=== PATIENT | male | born 1945 | race Caucasian/White ===

== ENCOUNTER 2017-11-26 18:40 | Inpatient (IN) | payer OTHER ==
[~2017-11-26] VITALS: Ht 160 cm; Wt 66.7 kg
--- NOTE | 2017-11-26 19:20 | NUR ---
RECEIVED REPORT FROM RUDDY WADE FOR WARNER. PT RESTING IN BED WITH NO S/S OF DISTRESS OR DISCOMFORT NOTED.
[2017-11-26] MEDS ORDERED: ONDANSETRON HCL/PF 4 MG/2 ML VIAL ONE (19:30)
[2017-11-26] MEDS ORDERED: MORPHINE SULFATE INJ 4 MG/ML DISP.SYRIN ONE (19:30)
[2017-11-26] MEDS ORDERED: IV NS 0.9% 500 ML BAG IV ONE (19:30)
[2017-11-26] MEDS ORDERED: MORPHINE SULFATE INJ 2 MG/ML DISP.SYRIN IV ONE (19:30)
[2017-11-26] MEDS ORDERED: ONDANSETRON HCL/PF 4 MG/2 ML VIAL IVP ONE (19:30)
--- NOTE | 2017-11-26 19:30 | NUR ---
PT BB SELF C/C ABD PAIN 02/03. +N, -V/D. LBM "FEW DAYS AGO". PT UNABLE TO URINATE OF NOW. PT IS AAOX4. VSS. SKIN WNL. RESP EVEN AND UNLABORED. NO S/S OF ACUTE DISTRESS NOTED. PT PLACED ON MONITOR AND POX. AWAITING MD FOR EVAL.
--- NOTE | 2017-11-26 20:10 | NUR ---
PT TO CT
--- NOTE | 2017-11-26 20:16 | NUR ---
PT BACK FROM CT
[2017-11-26 21:02] LABS: BASOPHILS % (AUTO) 0.2 % (0.0-2.0); EOSINOPHILS % (AUTO) 0.1 % (0.0-6.0); HEMATOCRIT 33 % (39-51); HEMOGLOBIN 10.6 g/dL (13.5-17.5); LYMPHOCYTES # (AUTO) 0.3 /CMM (0.8-4.8); LYMPHOCYTES % (AUTO) 4.5 % (20.0-44.0); MEAN CORPUSCULAR HGB CONC 32 g/dl (31.0-36.0); MEAN CORPUSCULAR VOLUME 78 fL (80-96); MONOCYTES # (AUTO) 0.3 /CMM (0.1-1.30); MONOCYTES % (AUTO) 3.7 % (2.0-12.0); NEUTROPHILS # (AUTO) 7.1 /CMM (1.8-8.9); NEUTROPHILS % (AUTO) 91.5 % (43.0-81.0); PLATELET COUNT (AUTO) 303 /CMM (150-450); RDW COEFFICIENT OF VARIATION 18.2 (11.5-15.0); RED BLOOD CELL COUNT(AUTO) 4.24 MIL/uL (4.5-6.0); WHITE BLOOD COUNT (AUTO) 7.8 K/uL (4.3-11.0)
[2017-11-26 21:17] LABS: ALANINE AMINOTRANSFERASE 11 U/L (12-78); ALBUMIN 3.5 g/dL (3.4-5.0); ALKALINE PHOSPHATASE 57 U/L (46-116); ASPARTATE AMINOTRANSFERASE 12 U/L (15-37); BILIRUBIN,DIRECT 0.1 mg/dL (0.0-0.2); BILIRUBIN,TOTAL 0.5 mg/dL (0.2-1.0); CALCIUM, SERUM 8.4 mg/dL (8.5-10.1); CARBON DIOXIDE 27 mmol/L (21-32); CHLORIDE 107 mmol/L (98-107); CREATININE 1.2 mg/dL (0.6-1.3); GLUCOSE 113 mg/dL (74-106); LIPASE 157 U/L (73-393); POTASSIUM 3.9 mmol/L (3.5-5.1); SODIUM SERUM 142 mmol/L (136-145); TOTAL PROTEIN, SERUM 6.8 g/dL (6.4-8.2); UREA NITROGEN, BLOOD 19 mg/dL (7-18)
[2017-11-26 21:25] LABS: INR 0.94 (0.87-1.13)
[2017-11-26] MEDS ORDERED: PIPERACILLIN /TAZOBACTAM 3.375 G in IV D5W 50 ML IV ONE (22:00)
--- NOTE | 2017-11-26 22:08 | NUR ---
REPORT GIVEN TO SHELLEY HUERTA FOR WARNER.
[2017-11-26] MEDS ORDERED: PIPERACILLIN /TAZOBACTAM 3.375 G VIAL IV ONE (22:10)
--- NOTE | 2017-11-26 22:50 | NUR ---
RN NOTES RECEIVED PT FROM ER WITH DX. OF ABDOMINAL PAIN, PT REFUSED TO BODY CHECK HIS LOWER EXTREMITIES, NON-COMPLIANT, ADMISSION INSTRUCTION WAS GIVEN , CALL LIGHT WITHIN REACH, [id number], CONTINUE TO MONITOR
[2017-11-26] MEDS ORDERED: MAGNESIUM HYDROXIDE 30 ML UDC PO PRN (23:00)
[2017-11-26] MEDS ORDERED: ACETAMINOPHEN 325 MG TABLET PO PRN (23:00)
[2017-11-26] MEDS ORDERED: ONDANSETRON HCL/PF 4 MG/2 ML VIAL IVP PRN (23:00)
[2017-11-26] MEDS ORDERED: Z GUARD REMEDY 2 OZ OINT TP PRN (23:00)
[2017-11-26] MEDS ORDERED: MAG HYDROX/AL HYDROX/SIMETH 30 ML UDC PO PRN (23:00)
[2017-11-26] MEDS: PANTOPRAZOLE 40 MG VIAL IV SCH (23:08)
--- NOTE | 2017-11-26 23:34 | NUR ---
AT 2320 PATIENT REFUSED TO DO ULTRASOUND OF HIS GALLBLADDER, HE SAID;" HE DOES NOT WANT TO BE TOUCHED BY THE TRANSDUCER ". THE NURSE IN CHARGE IS AWARE OF THE SITUATION.
[2017-11-26] MEDS: MORPHINE SULFATE INJ 2 MG/ML DISP.SYRIN IV PRN (23:46)
--- NOTE | 2017-11-26 23:50 | NUR ---
RN NOTES, COMPLAINED OF ABDOMINAL PAIN- MORPHINE 4 MG IV GIVEN ORDERED, V/S STABLE
[2017-11-26] MEDS: IV NS 0.9% 1,000 ML IV PRN (23:56)
[2017-11-27] VITALS (8 sets, daily range): BP systolic 79–136; BP diastolic 46–68
--- NOTE | 2017-11-27 04:10 | NUR ---
RN NOTES COMPLAINED OF ABDOMINAL PAIN- MORPHINE 4 MG IV GIVEN ORDERED, V/S STABLE
[2017-11-27] MEDS: MORPHINE SULFATE INJ 2 MG/ML DISP.SYRIN IV PRN ×2 (04:15→09:20)
[2017-11-27] MEDS ORDERED: PIPERACILLIN /TAZOBACTAM 3.375 G VIAL IV ONE (04:58)
[2017-11-27] MEDS ORDERED: PIPERACILLIN /TAZOBACTAM 3.375 G in IV NS 0.9% 50 ML IV SCH (05:00)
--- NOTE | 2017-11-27 05:00 | NUR ---
RN NOTES NEW IV LINE INSERTED ON THE RIGHT FOREARM GAUGE 22
--- NOTE | 2017-11-27 06:44 | NUR ---
RN NOTES AWAKE, MORNING CARE RENDERED , STILL COMPLAINING OF ABDOMINAL PAIN BUT STILL HE'S ASKING FOR FOOD AND WATER, EXPLAINED THAT HE CANNOT EAT OR DRINK UNTIL THE DOCTOR SEE HIM , BUT PT. ASKING THE SAME QUESTION. CALL LIGHT WITHIN REACH, SPX2, PT. NEEDS ATTENDED
--- NOTE | 2017-11-27 07:53 | NUR ---
MS RN OPENING NOTE PATIENT RESTING COMFORTABLY IN BED AT THIS TIME WITH SAFETY MEASURES IN PLACE. CALL LIGHT WITHIN REACH. NO FACIAL GRIMACING NOTED FOR PAIN. NO SOB OR DISTRESS NOTED. CURRENTLY NPO AT THIS TIME. SSKIN INTACT, BUT REFUSED LOWER EXTREMITIES SKIN CHECK. RIGHT FOREARM 22G INTACT AND PATENT NO REDNESS OR SWELLING NOTED, IV FLUIDS RUNNING AT 75 ML/HR TOLERATING WELL. PATIENT REFUSED US GALLBLADDER WANTS TO SPEAK TO MD. WILL CONTINUE TO MONITOR THROUGHOUT SHIFT.
[2017-11-27] MEDS: PANTOPRAZOLE 40 MG VIAL IV SCH (08:10)
--- NOTE | 2017-11-27 09:20 | NUR ---
MS RN NOTE PATIENT REQUESTING PAIN MEDICATION. PAIN 9/10 SHARP ABDOMINAL PAIN, FACIAL GRIMACING NOTED. MORPHINE 4MG IV GIVEN. WILL REASSESS PAIN AND CONTINUE TO MONITOR
[2017-11-27 10:29] LABS: EOSINOPHILS % (AUTO) 0.7 % (0.0-6.0); HEMATOCRIT 38 % (39-51); HEMOGLOBIN 12.2 g/dL (13.5-17.5); LYMPHOCYTES # (AUTO) 0.4 /CMM (0.8-4.8); LYMPHOCYTES % (AUTO) 8.5 % (20.0-44.0); MEAN CORPUSCULAR HGB CONC 32 g/dl (31.0-36.0); MEAN CORPUSCULAR VOLUME 77 fL (80-96); MONOCYTES # (AUTO) 0.1 /CMM (0.1-1.30); MONOCYTES % (AUTO) 2.1 % (2.0-12.0); NEUTROPHILS % (AUTO) 88.7 % (43.0-81.0); PLATELET COUNT (AUTO) 361 /CMM (150-450); RDW COEFFICIENT OF VARIATION 18.5 (11.5-15.0); RED BLOOD CELL COUNT(AUTO) 4.94 MIL/uL (4.5-6.0); WHITE BLOOD COUNT (AUTO) 4.5 K/uL (4.3-11.0)
[2017-11-27 11:20] LABS: CALCIUM, SERUM 8.4 mg/dL (8.5-10.1); CARBON DIOXIDE 20 mmol/L (21-32); CHLORIDE 102 mmol/L (98-107); CREATININE 1.8 mg/dL (0.6-1.3); GLUCOSE 98 mg/dL (74-106); PHOSPHORUS 4.3 mg/dL (2.5-4.9); POTASSIUM 4.6 mmol/L (3.5-5.1); SODIUM SERUM 136 mmol/L (136-145); UREA NITROGEN, BLOOD 27 mg/dL (7-18)
[2017-11-27 11:30] LABS: CHOLESTEROL 169 mg/dL (<200); HDL CHOLESTEROL 81 mg/dL (40-60); LDL 81 mg/dL (0-99); THYROID STIMULATING HORMONE 4.803 uIU/mL (0.358-3.74); TRIGLYCERIDES 57 mg/dL (30-150)
[2017-11-27 11:32] LABS: IRON, SERUM 17 ug/dl (50-175); TOTAL IRON BINDING CAPACITY 414 ug/dl (250-450)
[2017-11-27] MEDS: PIPERACILLIN /TAZOBACTAM 3.375 G in IV D5W 50 ML IV SCH ×3 (11:42→23:30)
[2017-11-27 12:20] LABS: MAGNESIUM 4.3 mg/dL (1.8-2.4)
--- NOTE | 2017-11-27 12:33 | NUR ---
MS RN NOTE RECEIVED CALL FROM LAB FOR CRITICAL LAB. MAGNESIUM-4.3 ROWDY BOBBY NP MADE AWARE. NO NEW ORDERS AT THIS TIME
[2017-11-27] MEDS ORDERED: MORPHINE SULFATE INJ 4 MG/ML DISP.SYRIN IV PRN (15:00)
[2017-11-27] MEDS: IV NS 0.9% 1,000 ML IV PRN ×3 (15:17→20:19)
--- NOTE | 2017-11-27 15:49 | NUR ---
MS RN NOTE NOTIFIED MD ABOUT PATIENT HAVING LOW BP. RECHECKED BLOOD PRESSURE MANUALLY 79/48. ORDER TO GIVE 500ML BOLUS AT THIS TIME. ORDERS NOTED AND CARRIED OUT. WILL CONTINUE TO MONITOR BLOOD PRESSURE
[2017-11-27] MEDS ORDERED: IV NS 0.9% 500 ML BAG IV ONE (17:30)
--- NOTE | 2017-11-27 18:44 | NUR ---
MS RN CLOSING NOTE PATIENT RESTING COMFORTABLY AT THIS TIME. NO SOB OR DISTRESS NOTED. NO PAIN AT THIS TIME. CALL LIGHT WITHIN REACH AT ALL TIMES. SAFETY MEASURES IMPLEMENTED. ABLE TO COMMUNICATE NEEDS. NPO AT THIS TIME. FURTHER LABS TO BE DRAWN AWAITING TO BE RESULTED.IV INTACT AND PATENT WITH 500 ML BOLUS RUNNING AT THIS TIME TOLERATING WELL. UNABLE TO OBTAIN UA. WILL ENDORSE TO CONSTRUCTION MANAGEMENT ASSISTANT NURSE ERMA HYLTON
[2017-11-27 19:45] LABS: BASOPHILS % (AUTO) 0.6 % (0.0-2.0); EOSINOPHILS % (AUTO) 0.2 % (0.0-6.0); HEMATOCRIT 38 % (39-51); HEMOGLOBIN 12.1 g/dL (13.5-17.5); LYMPHOCYTES # (AUTO) 0.5 /CMM (0.8-4.8); LYMPHOCYTES % (AUTO) 9.9 % (20.0-44.0); MEAN CORPUSCULAR HGB CONC 32 g/dl (31.0-36.0); MEAN CORPUSCULAR VOLUME 77 fL (80-96); MONOCYTES # (AUTO) 0.4 /CMM (0.1-1.30); MONOCYTES % (AUTO) 8.3 % (2.0-12.0); NEUTROPHILS # (AUTO) 4.3 /CMM (1.8-8.9); PLATELET COUNT (AUTO) 304 /CMM (150-450); RDW COEFFICIENT OF VARIATION 17.4 (11.5-15.0); RED BLOOD CELL COUNT(AUTO) 4.86 MIL/uL (4.5-6.0); WHITE BLOOD COUNT (AUTO) 5.3 K/uL (4.3-11.0)
[2017-11-27 20:18] LABS: ALANINE AMINOTRANSFERASE 9 U/L (12-78); ALKALINE PHOSPHATASE 52 U/L (46-116); ASPARTATE AMINOTRANSFERASE 20 U/L (15-37); BILIRUBIN,TOTAL 0.9 mg/dL (0.2-1.0); CALCIUM, SERUM 7.8 mg/dL (8.5-10.1); CARBON DIOXIDE 22 mmol/L (21-32); CHLORIDE 101 mmol/L (98-107); CREATININE 2.5 mg/dL (0.6-1.3); GLUCOSE 95 mg/dL (74-106); SODIUM SERUM 135 mmol/L (136-145); TOTAL PROTEIN, SERUM 6.8 g/dL (6.4-8.2); UREA NITROGEN, BLOOD 36 mg/dL (7-18)
[2017-11-27 20:41] LABS: BAND % (MANUAL) 17 % (0.0-5.0); LYMPHOCYTES % (MANUAL) 18 % (16-48); MONOCYTES % (MANUAL) 7 % (0-11.0); MYELOCYTES % 1 % (0-0); NEUTROPHILS % (MANUAL) 57 (42-76)
[2017-11-27] MEDS: MORPHINE SULFATE INJ 4 MG/ML DISP.SYRIN IV PRN (22:29)
[2017-11-27 22:53] LABS: INR 1.02 (0.87-1.13)
--- NOTE | 2017-11-27 23:00 | NUR ---
received pt from med/surge, s/p abd pain, a/o x4, follows command, RA, lungs clear, no edema, NPO, abdomen is tender, c/o abd pain, morphine 2mg ivp given by med/surge nurse, v/s stable, no pain, pt turns and repositions by himself.
--- NOTE | 2017-11-27 23:30 | NUR ---
seen by Dr Galdino Pan
--- NOTE | 2017-11-27 23:40 | NUR ---
unable to insert F/C - resistance PUBLIC INFORMATION OFFICER precision agronomist notified.
--- NOTE | 2017-11-27 23:45 | NUR ---
RN NOTE PER DR. SALAMANCA PT TRANSFERRED TO ICU FOR FURTHER OBSERVATION. REPORT GIVEN TO EDD FOX FOR CONTINUITY OF CARE.
[2017-11-28] VITALS (47 sets, daily range): BP systolic 99–188; BP diastolic 50–121
--- NOTE | 2017-11-28 00:37 | NUR ---
pt is resting in the bed, alert, f/c stable, abd pain 2/10, HIDA scan stat ordered, kennel technician addictions therapist called.
--- NOTE | 2017-11-28 01:34 | NUR ---
pt refused HIDA scan - claustrophobia, will notify
--- NOTE | 2017-11-28 02:42 | NUR ---
NM: PT REFUSED HIDA SCAN TEST. TECH:RB
--- NOTE | 2017-11-28 04:08 | NUR ---
pt is resting in the bed, no acute distress overnight, RA, sat well, v/s stable, c/o abdominal pain, morphine 2mg ivp given, pt cleaned and changed.
[2017-11-28] MEDS: MORPHINE SULFATE INJ 4 MG/ML DISP.SYRIN IV PRN ×2 (04:10→12:40)
[2017-11-28] MEDS: PIPERACILLIN /TAZOBACTAM 3.375 G in IV D5W 50 ML IV SCH ×3 (05:05→17:14)
[2017-11-28 05:18] LABS: EOSINOPHILS % (AUTO) 0.6 % (0.0-6.0); HEMATOCRIT 33 % (39-51); HEMOGLOBIN 10.3 g/dL (13.5-17.5); LYMPHOCYTES # (AUTO) 0.8 /CMM (0.8-4.8); MEAN CORPUSCULAR HGB CONC 32 g/dl (31.0-36.0); MEAN CORPUSCULAR VOLUME 77 fL (80-96); MONOCYTES # (AUTO) 0.3 /CMM (0.1-1.30); MONOCYTES % (AUTO) 3.1 % (2.0-12.0); NEUTROPHILS # (AUTO) 9.6 /CMM (1.8-8.9); NEUTROPHILS % (AUTO) 89.3 % (43.0-81.0); PLATELET COUNT (AUTO) 295 /CMM (150-450); RDW COEFFICIENT OF VARIATION 18.1 (11.5-15.0); RED BLOOD CELL COUNT(AUTO) 4.23 MIL/uL (4.5-6.0); WHITE BLOOD COUNT (AUTO) 10.7 K/uL (4.3-11.0)
[2017-11-28 05:25] LABS: APPEARANCE,URINE TURBID (CLEAR); BILIRUBIN,URINE NEGATIVE (NEGATIVE); BLOOD, URINE 1+ Ery/uL (NEGATIVE); COLOR,URINE YELLOW (YELLOW); KETONES,URINE TRACE (NEGATIVE); LEUKOCYTE ESTERASE ,URINE NEGATIVE (NEGATIVE); NITRITE, URINE NEGATIVE (NEGATIVE); PH,URINE 5.5 (5.0-8.0); PROTEIN,URINE 2+ mg/dl (NEGATIVE); UGLUCOSE NEGATIVE (NEGATIVE); UROBILINOGEN,URINE 0.2 EU/dL (0.2)
[2017-11-28 05:26] LABS: CALCIUM, SERUM 7.2 mg/dL (8.5-10.1); CARBON DIOXIDE 20 mmol/L (21-32); CHLORIDE 102 mmol/L (98-107); CREATININE 2.3 mg/dL (0.6-1.3); GLUCOSE 97 mg/dL (74-106); POTASSIUM 4.6 mmol/L (3.5-5.1); SODIUM SERUM 133 mmol/L (136-145); UREA NITROGEN, BLOOD 41 mg/dL (7-18)
[2017-11-28 05:32] LABS: BACTERIA,URINE Few /HPF (None Seen); RBC,URINE 0-2 /HPF (0-2); SQUAMOUS EPITHELIAL CELL,UR Rare /HPF (None Seen); WBC,URINE 0-2 /HPF (0-3)
[2017-11-28 05:33] LABS: URINE AMORPHOUS URATE Moderate /HPF (None Seen)
[2017-11-28 05:48] LABS: BAND % (MANUAL) 22 % (0.0-5.0); EOSINOPHILS % (MANUAL) 1 % (0-4); LYMPHOCYTES % (MANUAL) 9 % (16-48); MONOCYTES % (MANUAL) 4 % (0-11.0); NEUTROPHILS % (MANUAL) 64 (42-76)
--- NOTE | 2017-11-28 08:00 | NUR ---
INITIAL BOTTOMING MACHINE OPERATOR NOTE RCVD PT AWAKE AND ALERT TO SELF AND SITUATION, RE-ORIENTED TO PLACE, TIME. ST ON TELE. ON RA TOLERATING WELL. IV SITE C/D/I/PATENT. NO S/O INFILTRATION/PHLEBITIS OBSERVED. IVF INFUSING ORDERED. PT NPO AT THIS TIME. dR. SALAMANCA CALLED THIS AM. HE WAS UPDATED ON PT'S CONDITION AND RECOMMENDED TO EDUCATE PT REGARDING HIDA SCAN AGAIN SINCE IT'S NEEDED TO BETTER DIAGNOSE HIS CONDITION. WILL CONTINUE TO MONITOR PT FOR SAFETY AND COMFORT. CALL LIGHT WITHIN REACH. BED IN LOW AND LOCKED POSITION.
[2017-11-28] MEDS: PANTOPRAZOLE 40 MG VIAL IV SCH (08:15)
[2017-11-28] MEDS ORDERED: IV NS 0.9% 1,000 ML IV PRN (08:48)
[2017-11-28] MEDS: IV NS 0.9% 1,000 ML IV PRN (09:17)
[2017-11-28] MEDS ORDERED: Calcium Gluconate 1GM/10ML 4.65 MEQ in IV NS 0.9% 50 ML IV ONE (11:00)
[2017-11-28 11:39] LABS: URINE SODIUM, RANDOM 24 mmol/l (40-220)
[2017-11-28 11:41] LABS: OSMOLALITY,URINE 555 mOS/kg (340-1090)
--- NOTE | 2017-11-28 12:56 | NUR ---
RESTRIKE HAMMER OPERATOR NOTE PT TAKEN TO NUCLEAR MEDICINE PER PROTOCOL WITH RN AT BEDSIDE. VITAL SIGNS STABLE DURING PROCEDURE. PT ANXIOUS AT TIMES REGARDING LENGTH OF PROCEDURE. HE WAS UPDATED BY RN AND PARRISH, TECHNOLOGIST WHO WAS ALSO AT BEDSIDE. PT TOLERATED PROCEDURE WELL AND WAS RETURNED TO HIS ROOM. PT CALM AT THIS TIME. WILL CONTINUE TO MONITOR.
[2017-11-28] MEDS: HYDROCODONE/APAP 5/325MG 1 EACH TABLET PO PRN (14:12)
--- NOTE | 2017-11-28 15:29 | NUR ---
ANESTHESIOLOGY FELLOW NOTE PT C/O CHEST PAIN, UNABLE TO EXPLAIN CHARACTER OF PAIN. HE STATES THAT PAIN TRAVELS TO BOTH SIDES OF HIS CHEST, UPON BEING ASKED IF HE FEELS PRESSURE, HE SAYS YES, PT SAYS THAT HE FEELS SHORT OF BREATH. O2 VIA NC STARTED, MERCEDES RENO INFORMED. RCVD ORDERS FOR ECG, TROPONIN, AND MRCP. RT MILLY AT BEDSIDE PERFORMING ECG. WILL CONTINUE TO MONITOR PT.
--- NOTE | 2017-11-28 15:50 | NUR ---
PBX REPAIRER NOTE PT DOESN'T THINK THAT WILL BE ABLE TO TOLERATE MRCP PROCEDURE. ROWDY FERN CUTTER INFORMED HE RECOMMENDED CT SCAN ABD-PELVIS WITHOUT CONTRAST AND IS AWARE THAT THERE IS A PREVIOUS CT DONE. MEENAKSHI CONSULTED.
--- NOTE | 2017-11-28 16:47 | NUR ---
RAILROAD CAR REPAIRMAN NOTE PT TRANSPORTED TO RADIOLOGY FOR CT ABD/PELVIS PER PROTOCOL WITH RN AT BEDSIDE. PT TOLERATED STUDY WELL. RETURNED TO BED IN STABLE CONDITION. WILL CONTINUE TO MONITOR.
[2017-11-28 17:01] LABS: ALBUMIN 2.1 g/dL (3.4-5.0); BILIRUBIN,DIRECT 0.1 mg/dL (0.0-0.2); BILIRUBIN,TOTAL 0.6 mg/dL (0.2-1.0)
[2017-11-28] MEDS ORDERED: SUCCINYLCHOLINE CHLORIDE 20 MG/ML VIAL ONE (17:36)
[2017-11-28] MEDS ORDERED: ROCURONIUM BROMIDE 50 MG/5 ML ONE (17:37)
--- NOTE | 2017-11-28 17:40 | NUR ---
DEICER FINISHER NOTE DR. SALAMANCA AT BEDSIDE RECOMMENDED FOR PT TO UNDERGO SURGERY. CONSENTS SIGNED, ORDERS FOR TYPE AND SCREEN, COAGS ENTERED. WILL CONTINUE TO MONITOR.
[2017-11-28 18:03] LABS: EOSINOPHILS % (AUTO) 0.6 % (0.0-6.0); HEMATOCRIT 32 % (39-51); HEMOGLOBIN 10.4 g/dL (13.5-17.5); LYMPHOCYTES # (AUTO) 0.4 /CMM (0.8-4.8); LYMPHOCYTES % (AUTO) 6.4 % (20.0-44.0); MEAN CORPUSCULAR HGB CONC 33 g/dl (31.0-36.0); MEAN CORPUSCULAR VOLUME 76 fL (80-96); MONOCYTES # (AUTO) 0.1 /CMM (0.1-1.30); MONOCYTES % (AUTO) 0.9 % (2.0-12.0); NEUTROPHILS # (AUTO) 5.5 /CMM (1.8-8.9); NEUTROPHILS % (AUTO) 92.1 % (43.0-81.0); PLATELET COUNT (AUTO) 324 /CMM (150-450); RDW COEFFICIENT OF VARIATION 18.4 (11.5-15.0); RED BLOOD CELL COUNT(AUTO) 4.17 MIL/uL (4.5-6.0)
--- NOTE | 2017-11-28 18:14 | NUR ---
ADVERTISING MATERIAL DISTRIBUTOR NOTE PT TAKEN TO OR BY BED. VITAL SIGNS STABLE, PT AWAKE AND ALERT SHOWING NO S/O DISTRESS. C/O ABDOMINAL PAIN. SR ON TELE. PT'S CARE ENDORSED TO JESSI TOMAS/RN.
[2017-11-28 18:25] LABS: INR 0.93 (0.87-1.13)
[2017-11-28] MEDS ORDERED: VANCOMYCIN 1 GM VIAL ONE (18:43)
[2017-11-28] MEDS ORDERED: BACITRACIN 50000 UNITS/VIAL ONE (19:29)
[2017-11-28] MEDS ORDERED: BUPIVACAINE 0.25% 75 MG/30 ML VIAL ONE (20:39)
--- NOTE | 2017-11-28 21:00 | NUR ---
LIFE SPECIALIST NOTES PATIENT ARRIVED BACK FROM OR, RECOVERY NURSE AT BEDSIDE.
[2017-11-28] MEDS ORDERED: HYDROMORPHONE INJ 0.5 MG/0.5 ML SYRINGE ONE (21:08)
[2017-11-28] MEDS ORDERED: HYDROMORPHONE INJ 0.5 MG/0.5 ML SYRINGE IV ONE (21:15)
--- NOTE | 2017-11-28 22:00 | NUR ---
PROGRAM OFFICER NOTES RECEIVED REPORT FROM RECOVERY NURSE HAMILTON. RECEIVED PATIENT IN BED, AWAKE, ALERT TO NAME, BUT CONFUSED AND DISORIENTED. ATTEMPTED TO REORIENT, BUT PATIENT STILL WAKING UP FROM ANESTHESIA, AND REMAINS CONFUSED. WILL CONTINUE TO REORIENT NEEDED. BILATERAL SOFT WRIST RESTRAINTS IN PLACE FOR SAFETY, PATIENT IS REACHING FOR NGT, YELLING "TAKE EVERYTHING OFF, WHERE AM I, WHAT AM I DOING HERE, WHO ARE YOU?". PATIENT IS S/P EXPLORATORY LAPAROTOMY, REPAIR OF POSTERIOR DUODENAL ULCER, AND UPPER ENDOSCOPY. PATIENT NOTED WITH LARGE DRESSING COVERING ABDOMINAL SURGICAL SITE, CLEAN DRY AND INTACT, WITH 2 SJ DRAINS, #1 RIGHT SIDE, #2 LEFT SIDE, BOTH WITH SEROSANGUINOUS OUTPUT. JOYCE CATHETER IN PLACE, DRAINING CLEAR YELLOW URINE BY GRAVITY. IV SITES FLUSHED WITH NS, PATENT AND INTACT, FREE FROM ANY S/S OF INFILTRATION OR PHLEBITIS. WILL CARRY OUT ALL PRE-OP ORDERS AND CONTINUE TO CLOSELY MONITOR THIS PATIENT
[2017-11-28] MEDS: LORAZEPAM INJ 2 MG/ML VIAL IV PRN (22:19)
--- NOTE | 2017-11-28 22:30 | NUR ---
SALES ACCOUNT EXECUTIVE NOTES PATIENT NOTED WITH POST OP ORDERS FOR TPN. DR GENI PEÑALOZA MADE AWARE THAT PATIENT ONLY HAS PERIPHERAL IVs, NO CENTRAL LINE. OBTAINED ORDERS FROM GENI FOR PICC LINE INSERTION, AND OKAY TO START TPN IN THE MORNING WHEN PHARMACY ARRIVES. IN THE MEANTIME, PATIENT CONTINUES ON IVF OF D5 1/2 NS @ 120 ML/HR
[2017-11-28] MEDS: IV D5/0.45 NACL 1,000 ML IV PRN (22:46)
[2017-11-28] MEDS ORDERED: TPN/PPN PER PHARMACY XX PRN (23:30)
[2017-11-29] VITALS (34 sets, daily range): BP systolic 108–165; BP diastolic 56–96
[2017-11-29] MEDS: PIPERACILLIN /TAZOBACTAM 3.375 G in IV D5W 50 ML IV SCH ×5 (00:01→23:53)
--- NOTE | 2017-11-29 00:10 | NUR ---
MEDICAL EQUIPMENT SALES. LAB CALLED FOR LACTIC ACD 2.4. 1GM VANCOMYCIN SOCIAL MEDIA SENIOR ASSOCIATE GIVEN, GENI MADE AWARE.
[2017-11-29] MEDS: LORAZEPAM INJ 2 MG/ML VIAL IV PRN ×4 (04:21→23:28)
[2017-11-29 05:27] LABS: HEMATOCRIT 32 % (39-51); HEMOGLOBIN 10.5 g/dL (13.5-17.5); LYMPHOCYTES # (AUTO) 0.4 /CMM (0.8-4.8); LYMPHOCYTES % (AUTO) 6.2 % (20.0-44.0); MEAN CORPUSCULAR HGB CONC 33 g/dl (31.0-36.0); MEAN CORPUSCULAR VOLUME 77 fL (80-96); MONOCYTES # (AUTO) 0.4 /CMM (0.1-1.30); MONOCYTES % (AUTO) 6.5 % (2.0-12.0); NEUTROPHILS # (AUTO) 5.3 /CMM (1.8-8.9); NEUTROPHILS % (AUTO) 87.3 % (43.0-81.0); PLATELET COUNT (AUTO) 299 /CMM (150-450); RDW COEFFICIENT OF VARIATION 18.6 (11.5-15.0); RED BLOOD CELL COUNT(AUTO) 4.19 MIL/uL (4.5-6.0); WHITE BLOOD COUNT (AUTO) 6.1 K/uL (4.3-11.0)
[2017-11-29 05:54] LABS: CALCIUM, SERUM 7.7 mg/dL (8.5-10.1); CARBON DIOXIDE 22 mmol/L (21-32); CHLORIDE 106 mmol/L (98-107); CREATININE 1.6 mg/dL (0.6-1.3); GLUCOSE 120 mg/dL (74-106); MAGNESIUM 3.6 mg/dL (1.8-2.4); PHOSPHORUS 3.6 mg/dL (2.5-4.9); POTASSIUM 4.5 mmol/L (3.5-5.1); SODIUM SERUM 136 mmol/L (136-145); UREA NITROGEN, BLOOD 35 mg/dL (7-18)
--- NOTE | 2017-11-29 06:00 | NUR ---
THERMAL ENGINEER NOTES SJ DRAIN OUTPUT 45ML RIGHT - 20ML SEROUS FLUID LEFT - 25ML SEROUS FLUID
[2017-11-29] MEDS: MORPHINE SULFATE INJ 4 MG/ML DISP.SYRIN IV PRN ×3 (06:26→20:06)
--- NOTE | 2017-11-29 07:00 | NUR ---
CODING SPECIALIST CLOSING NOTES PATIENT RESTING IN BED, APPEARS COMFORTABLE AT THIS TIME. LEFT AND RIGHT ABDOMINAL SJ DRAINS IN PLACE, DRAINING SEROUS FLUID. PATIENT REMAINS WITH BILATERAL SOFT WRIST RESTRAINTS FOR SAFETY. UNABLE TO CHECK DAILY WEIGHT DUE TO MALFUNCTION OF SCALE. WILL ENDORSE THE PATIENT TO THE AM SHIFT NURSE FOR CONTINUITY OF CARE.
[2017-11-29] MEDS: IV D5/0.45 NACL 1,000 ML IV PRN ×2 (07:39→18:34)
--- NOTE | 2017-11-29 07:49 | NUR ---
INITIAL ROUGHER FOR CEMENT NOTE RCVD PT SLEEPING, AROUSED TO PAINFUL STIMULI. SR ON TELE. BILATERAL SOFT WRIST RESTRAINTS IN PLACE. CIRCULATION CHECKS DONE. ON RA TOLERATING WELL. JOYCE TO GRAVITY DRAINING YELLOW URINE. LEFT NG-TUBE TO LOW INTERMITTENT SUCTION WITH MINIMAL GREEN DRAINAGE. ABDOMINAL INCISION COVERED WITH SURGICAL DRESSING WHICH IS C/D/I. OLD DRAINAGE MARKED. BILATERAL SJ DRAINS IN PLACE WITH SEROUS FLUID ON RIGHT AND SEROSANGUINEOUS ON LEFT. IV SITES FLUSHED. IVF INFUSING. WILL CONTINUE TO MONITOR PT FOR SAFETY AND COMFORT. CALL LIGHT WITHIN REACH. BED IN LOW AND LOCKED POSITION.
[2017-11-29] MEDS: PANTOPRAZOLE 40 MG VIAL IV SCH (08:06)
[2017-11-29] MEDS: ENOXAPARIN SODIUM 30 MG/0.3 ML DISP.SYRIN SQ SCH (08:14)
--- NOTE | 2017-11-29 08:17 | NUR ---
RN STARS NOTE PT AWAKE AND CONFUSED. PT RE-ORIENTED TO PLACE, TIME AND SITUATION. PT APPEARS DROWSY. WILL CONTINUE TO ORIENT NEEDED.
--- NOTE | 2017-11-29 11:27 | NUR ---
DIRECTOR TRANSPORTATION NOTE PT AWAKE, RE-ORIENTED TO PLACE, TIME AND SITUATION. UNCOOPERATIVE, ATTEMPTING TO GET OUT OF BED, NO FOLLOWING DIRECTIONS. NOT BELIEVING THAT HE HAD SURGERY LAST NIGHT. PT TRYING TO PULL NG-TUBE OUT AND PULLING ON RESTRAINTS. MAYITO STERN AWARE. WILL CONTINUE TO MONITOR PT.
--- NOTE | 2017-11-29 12:46 | NUR ---
WAGON DRIVER NOTE PT GIVEN ATIVAN DUE TO ANXIETY, RESTLESSNESS. VITAL SIGNS STABLE. WILL CONTINUE TO MONITOR.
--- NOTE | 2017-11-29 12:47 | NUR ---
PRINCIPAL SOFTWARE ARCHITECT NOTE DR. TAFOYA IN UNIT UPDATED ON PT'S CONDITION. INFORMED THAT PER YOSELIN OROPEZA NO TPN RECOMMENDED WAITING FOR DR. LLAMAS TO ASSESS PT AND DETERMINE TPN NEED. DR. TAFOYA INFORMED ABOUT PT'S BEHAVIOR WITH NO HX OF DEMENTIA/ALZHEIMER'S. PER ALEXEI PT'S ROOMMATE PT HAS BECOME MORE FORGETFUL LATELY.
--- NOTE | 2017-11-29 17:38 | NUR ---
TRANSFER OUT OF SUPERVISOR EDGING NOTE PT TRANSFERRED TO WILL ROOM 101 VIA BED WITH RN AT BEDSIDE. REQUEST MADE FOR ROOM CLOSE TO RN STATION DUE TO POSSIBLE FALL RISK. PER RUDDY CORONEL NO ROOM AVAILABLE AT THIS TIME. REPORT GIVEN TO RUDDY AZEVEDO PT'S VITAL SIGNS STABLE. PT ORIENTED TO NEW ROOM. SUNITA BOONE AT BEDSIDE. PT'S BELONGINGS WERE TRANSPORTED WITH PT AND PLACED INSIDE NIGHT STAND. ROBERTO CARLOS MADE AWARE OF PT'S FALL RISK.
--- NOTE | 2017-11-29 17:39 | NUR ---
RN NOTES PT RECEIVED IN ROOM 101, FORM ICU, PT IS A/Ox1, CONFUSED , ON RA , NO SOB NOTED, RESPIRATION EVEN AND UNLABORED ,ON TELE ST, HR IN 100'S , JOYCE DRINING TO GRAVITY , DRESSING TO ABDOMEN INTACT , RIGHT AND LEFT SJ DRAINS TO ABDOMEN INTACT , L NARE NGT TO LIS ,L UPPER ARM IV SITE G 18 CDI, D51/2NS AT 120 CC/HR RUNNING VIA R UPPER ARM IV SITE , SR UP x3, TEJA. WRIST PROTECTIVE DEVISE ON FOR PT SAFETY , BED LOCKED AND IN LOWEST POSITION , WILL CONTINUE TO MONITOR PT CLOSELY.
--- NOTE | 2017-11-29 19:30 | NUR ---
PRESS OPERATOR CARBON PRODUCTS: INITIAL SHIFT NOTES RECEIVED REPORT FROM DAY SHIFT NURSE ROBERTO CARLOS. RECEIVED PATIENT IN BED, ASLEEP AT THIS TIME, EASILY AROUSABLE TO NAME OR LIGHT TOUCH. BREATHING IS EVEN AND NONLABORED WHILE ON ROOM AIR, SPO2 WNL. ON TELEMETRY MONITORING REVEALING SINUS TACHYCARDIA, HR = 103. JOYCE CATHETER PATENT AND INTACT, DRAINING CLEAR DARK YELLOW URINE BY GRAVITY. LEFT NARE NGT PATENT AND INTACT, CONNECTED TO LIWS, WITH GREEN COLORED OUPUT. NOTED WITH ABDOMINAL SURGICAL DRESSING, CLEAN, DRY, AND INTACT, OLD DRAINAGE MARKED, NO DRAINAGE NOTED OUTSIDE SZYMANSKI. ALSO NOTED WITH LEFT AND RIGHT ABDOMINAL SJ DRAINS TO BULB SUCTION, NOTED WITH SEROUS FLUID OUTPUT. LANA #18G PATENT AND INTACT, FLUSHED WITH NS, ONGOING IVF OF D51/2 NS CURRENTLY INFUSING @ 120 ML/HR. BILATERAL SOFT WRIST RESTRAINTS IN PLACE FOR SAFETY. CALL LIGHT LEFT WITHIN EASY REACH, BED IN LOWEST AND LOCKED POSITION, SR UP X3, BED ALARM IN PLACE. WILL CONTINUE TO CLOSELY MONITOR THE PATIENT
--- NOTE | 2017-11-29 20:45 | NUR ---
HOGSHEAD SALVAGE NOTES PATIENT TRANSFERRED TO ROOM 117-1. PATIENT TOLERATED THE TRANSFER WELL, WILL CONTINUE TO CLOSELY MONITOR
--- NOTE | 2017-11-29 22:00 | NUR ---
PRESALES CONSULTANT NOTES PATIENT SEEN AND EXAMINED BY DR SALAMANCA. DR SALAMANCA MADE AWARE OF RECOMMENDATION FROM RD AND PRIMARY MD, TO HOLD TPN DUE TO POSSIBILITY OF PATIENT BEING ABLE TO EAT SOON, WITHIN A FEW DAYS. PER DR FIELD, START TPN WHEN PICC LINE INSERTED, OKAY TO START WHEN PHARMACY ARRIVES IN THE AM
--- NOTE | 2017-11-29 23:00 | NUR ---
PROM BURN OFF OPERATOR: NOTES LIDIA DECKER MADE AWARE REGARDING CLARIFICATION FROM DR SALAMANCA TO START TPN, AND THAT PATIENT STILL ONLY HAS PERIPHERAL IV ACCESS. PER LIDIA DECKER, LINE WILL BE PLACED TOMORROW MORNING. WILL CONTINUE TO CLOSELY MONITOR
--- NOTE | 2017-11-29 23:30 | NUR ---
CRYSTALIZER OPERATOR: NOTES PATIENT RESTLESS, AGITATED, ATTEMPTING TO CLIMB OUT OF BED DESPITE BILATERAL SOFT WRIST RESTRAINTS, REORIENTATION UNSUCCESSFUL, REMAINS CONFUSED. ATIVAN ADMINISTERED PRESCRIBED
[2017-11-30] VITALS: BP 150/76
--- NOTE | 2017-11-30 00:15 | NUR ---
CANVASSING MANAGER: NOTES PATIENT IS LESS ANXIOUS/AGITATED, BUT NOW WITH C/O 9/10 ABDOMINAL PAIN. MORPHINE ADMINISTERED ORDERED
[2017-11-30] MEDS: MORPHINE SULFATE INJ 4 MG/ML DISP.SYRIN IV PRN ×6 (00:30→22:14)
[2017-11-30] MEDS ORDERED: ACETAMINOPHEN 650 MG/SUPP.RECT RC PRN (01:00)
[2017-11-30] MEDS: IV D5/0.45 NACL 1,000 ML IV PRN ×2 (03:59→14:00)
[2017-11-30 04:00] VITALS: BP 158/95
--- NOTE | 2017-11-30 04:30 | NUR ---
GLOBAL PRODUCT MANAGER: NOTES PATIENT RERSTLESS, C/O 04/05 PAIN, MORPHINE ADMINISTERED ORDERED
[2017-11-30] MEDS: LORAZEPAM INJ 2 MG/ML VIAL IV PRN ×2 (05:56→20:15)
[2017-11-30] MEDS: PIPERACILLIN /TAZOBACTAM 3.375 G in IV D5W 50 ML IV SCH ×4 (05:56→23:34)
--- NOTE | 2017-11-30 06:00 | NUR ---
SEO ASSISTANT: NOTES PATIENT AWAKE, AGITATED, RESTLESS, ATTEMPTING TO GET OUT OF BED. ATTEMPTED TO REORIENT PATIENT TO REALITY AND THAT HE HAD RECENT SURGERY, BUT PATIENT STATES "NO THAT DIDNT HAPPEN TO ME, THAT DIDNT HAPPEN." ATIVAN ADMINISTERED ORDERED
--- NOTE | 2017-11-30 06:01 | NUR ---
RN NOTES SJ DRAIN OUTPUT LEFT - 35ML SEROUS FLUID RIGHT - 15ML SEROUS FLUID
[2017-11-30 06:46] LABS: CALCIUM, SERUM 8.2 mg/dL (8.5-10.1); CARBON DIOXIDE 21 mmol/L (21-32); CHLORIDE 103 mmol/L (98-107); CREATININE 0.9 mg/dL (0.6-1.3); GLUCOSE 102 mg/dL (74-106); MAGNESIUM 2.4 mg/dL (1.8-2.4); PHOSPHORUS 1.9 mg/dL (2.5-4.9); POTASSIUM 3.6 mmol/L (3.5-5.1); SODIUM SERUM 134 mmol/L (136-145); UREA NITROGEN, BLOOD 16 mg/dL (7-18)
--- NOTE | 2017-11-30 07:00 | NUR ---
RN CLOSING NOTES PATIENT RESTING COMFORTABLY IN BED AT THIS TIME, NOT IN ACUTE DISTRESS. LEFT AND RIGHT ABDOMINAL SJ DRAIN IN PLACE, LEFT NGT CONTINUES TO BE ON LIWS, WITH DARK GREEN OUTPUT. WILL ENDORSE THE PATIENT TO THE AM SHIFT NURSE FOR CONTINUITY OF CARE
[2017-11-30 07:30] LABS: HEMATOCRIT 30 % (39-51); HEMOGLOBIN 9.8 g/dL (13.5-17.5); LYMPHOCYTES # (AUTO) 0.7 /CMM (0.8-4.8); LYMPHOCYTES % (AUTO) 7.9 % (20.0-44.0); MEAN CORPUSCULAR HGB CONC 33 g/dl (31.0-36.0); MEAN CORPUSCULAR VOLUME 77 fL (80-96); MONOCYTES # (AUTO) 0.3 /CMM (0.1-1.30); MONOCYTES % (AUTO) 3.4 % (2.0-12.0); NEUTROPHILS # (AUTO) 7.7 /CMM (1.8-8.9); NEUTROPHILS % (AUTO) 87.7 % (43.0-81.0); PLATELET COUNT (AUTO) 288 /CMM (150-450); RDW COEFFICIENT OF VARIATION 18.6 (11.5-15.0); WHITE BLOOD COUNT (AUTO) 8.8 K/uL (4.3-11.0)
--- NOTE | 2017-11-30 07:30 | NUR ---
RECEIVED PT SLEEPING, ON ROOM AIR, LUNGS CLEAR, NGT TUBE IN PLACE, TO LIS GREEN FLUID, ON TELE ST 107, ABDOMINAL DRESSING I/C/D, R AND L SJ DRAINS IN PLACE, DRAINING SEROUS FLUID, NO BOWEL SOUNDS HEARD UPON AUSCULTATION, F/C IN PLACE, URINE CLEAR YELLOW WITH SOME SEDIMENTS, SCD PUMPS IN PALCE, SITTER AT BEDSIDE, RESTRINTS IN PLACE SO FAR BUT WILL REMOVE AND SEE PT'S BEHAVIOR, WILL MONITOR CLOSELY.
[2017-11-30 08:00] VITALS: BP 146/76
[2017-11-30] MEDS: PANTOPRAZOLE 40 MG VIAL IV SCH (09:19)
[2017-11-30] MEDS: ENOXAPARIN SODIUM 30 MG/0.3 ML DISP.SYRIN SQ SCH (09:26)
[2017-11-30] MEDS ORDERED: DEXTROSE 50%-WATER 50 ML DISP.SYRIN IV PRN (09:30)
[2017-11-30] MEDS ORDERED: Sodium Phosphate 15 MMOL in IV D5W 250 ML IV ONE (09:30)
[2017-11-30] MEDS: BLOOD SUGAR DIAGNOSTIC 1 EACH STRIP IN SCH ×3 (11:10→23:48)
[2017-11-30] MEDS ORDERED: FEE TPN 1 MIN EA MC ONE (11:58)
[2017-11-30 12:00] VITALS: BP 151/67
--- NOTE | 2017-11-30 13:15 | NUR ---
RN NOTE PICC LINE INSERTED IN LANA BY RUEL. WILL START TPN SOON.
[2017-11-30] MEDS ORDERED: TPN BAG #1 IV PRN ×4 (14:00)
[2017-11-30 14:18] LABS: *ANCA ATYPICAL p-ANCA <1:20 titer (Neg:<1:20); *ANCA CYTOPLASMIC (C-ANCA) <1:20 titer (Neg:<1:20); *ANCA PERINUCLEAR (P-ANCA) <1:20 titer (Neg:<1:20)
[2017-11-30 16:00] VITALS: BP 148/65
--- NOTE | 2017-11-30 19:45 | NUR ---
ICU/RADIOLOGY TECHNOLOGIST RECEIVED REPORT FROM DAY NURSE, PT APPEARS TO BE RESTLESS BUT HAS SITTER.PT IS ST 100'S ON THE MONITOR. PT HAS N/G TUBE TO LOW INTERMITTING SUCTION, DRAINING GREEN BILE. PT HAS F/C, DRAINING YELLOW URINE. THERE ARE NO SKIN ISSUES THAT ARE ADDRESSED ON FLOW SHEET. RIGHT UPPER ARM PICC LINE. PT WAS TURNED AND REPOSITIONED FOR COMFORT AND CARE. WILL CONTINUE TO MONITOR THIS PT.
[2017-11-30 20:00] VITALS: BP_SYST 156; BP_DIAS 85; BP_DIAS 87
--- NOTE | 2017-11-30 20:18 | NUR ---
WILL/DISPUTE SPECIALIST PT'S BLOOD PRESSURE WAS INITIALLY 175/91, RECHECKED WAS 156/87. PT COMPLAINED ABOUT PAIN AND IS RESTLESS. PT'S HEART RATE IS 111, NOTIFIED CHARGE NURSE PT WAS GIVEN ATIVAN IVP PER MD'S ORDERS. SITTER AT BEDSIDE. WILL MONITOR THIS PT.
--- NOTE | 2017-11-30 22:25 | NUR ---
WILL/STITCHING DEPARTMENT SUPERVISOR PT WAS VERY AGITATED AND KICKING COMPLAINED OF PAIN, NOTIFIED CHARGE NURSE PT WAS GIVEN MORPHINE IVP ORDERED BY MD. WILL CONTINUE TO MONITOR THIS PT.
--- NOTE | 2017-11-30 23:57 | NUR ---
WILL/EMISSIONS INSPECTOR PT'S BLOOD SUGAR IS 122, THERE IS NO COVERAGE FOR THIS PER MD'S ORDERS. WILL RECHECK THE SUGAR AGAIN IN 6 HRS. PT WAS TURNED AND REPOSITIONED FOR COMFORT AND CARE.
[2017-12-01] VITALS: BP 151/96
[2017-12-01] MEDS ORDERED: MORPHINE SULFATE INJ 2 MG/ML DISP.SYRIN ONE (02:05)
[2017-12-01] MEDS: IV D5/0.45 NACL 1,000 ML IV PRN (02:07)
--- NOTE | 2017-12-01 02:10 | NUR ---
WILL/SNOWSPORT INSTRUCTOR PT GIVEN AM CARE, ALONG WITH ORAL CARE. PT WAS TURNED AND REPOSITIONED FOR COMFORT AND CARE. WILL MONITOR THIS PT. SITTER REMAINS AT BEDSIDE, VERY RESTLESS AND AGITATED TRIES TO GET OUT OF BED.
--- NOTE | 2017-12-01 02:30 | NUR ---
WILL/FEDERAL AID COORDINATOR PT COMPLAINED OF PAIN RATED 10/10 TO LOWER ABDOMEN, CHARGE NURSE GAVE MORPHINE 2 MG IVP FOR THIS. WILL CONTINUE TO MONITOR THIS PT.
[2017-12-01] MEDS: LORAZEPAM INJ 2 MG/ML VIAL IV PRN ×2 (03:39→11:55)
--- NOTE | 2017-12-01 03:40 | NUR ---
WILL/CLINICAL RESEARCH SPECIALIST PT WAS EXTREMELY AGITATED, YELLING OUT AND PLACING FEET OVER RAILS. WHEN TRIED TO PLACE BACK OVER RAILS PT THEN TRIED TO HIT STAFF. NOTICED CHARGE NURSE, ATDIONTE IVP GIVEN FOR THIS. PT WAS THEN PULLED UP AND REPOSITIONED . WILL CONTINUE TO MONITOR THIS PT.
[2017-12-01 04:00] VITALS: BP 165/83
[2017-12-01 04:09] LABS: *ANCANTIMYELOPEROXIDASE (MPO) <9.0 U/mL (0.0-9.0); *ANCANTIPROTEINASE 3 (PR-3) AB <3.5 U/mL (0.0-3.5)
[2017-12-01] MEDS: PIPERACILLIN /TAZOBACTAM 3.375 G in IV D5W 50 ML IV SCH ×4 (05:09→23:31)
[2017-12-01] MEDS: BLOOD SUGAR DIAGNOSTIC 1 EACH STRIP IN SCH ×3 (05:53→17:34)
--- NOTE | 2017-12-01 06:19 | NUR ---
WILL/BRASS FINISHER PT'S BLOOD SUGAR IS 123, THERE IS NO COVERAGE FOR THIS PER MD ORDERS, PT WAS TURNED AND REPOSITIONED FOR COMFORT AND CARE. SITTER REMAINS AT BEDSIDE, REMAINS RESTLESS AND AGITATED.
[2017-12-01 07:05] LABS: TRIGLYCERIDES 151 mg/dL (30-150)
[2017-12-01 07:11] LABS: CALCIUM, SERUM 8.2 mg/dL (8.5-10.1); CARBON DIOXIDE 24 mmol/L (21-32); CHLORIDE 100 mmol/L (98-107); CREATININE 0.9 mg/dL (0.6-1.3); GLUCOSE 117 mg/dL (74-106); MAGNESIUM 1.9 mg/dL (1.8-2.4); POTASSIUM 3.3 mmol/L (3.5-5.1); SODIUM SERUM 132 mmol/L (136-145); UREA NITROGEN, BLOOD 10 mg/dL (7-18)
--- NOTE | 2017-12-01 07:25 | NUR ---
GRAPHIC TECHNICIAN INITIAL NOTES: RECEIVED PT IN BED, AWAKE, ALERT X1 (NAME) WITH CONFUSION NOTED. SITTER AT BEDSIDE ORDERED, AND BILAT SOFT WRIST RESTRAINTS ON DUE TO PT ATTEMPTING TO PULL LINES OUT AND GET OUT OF BED. PT ON ROOM AIR, SATURATING 95%. NO SOB NOTED AT THIS TIME. ON TELE MONITOR, SINUS TACHY. NGT IN PLACE ON L NARE CONNECTED TO SUCTION. TPN CONNECTED TO LANA PICC LINE, RUNNING AT 50ML/HR. IV ALSO CONNECTED TO D5 1/2 NS AT 70CC/HR ORDERED. PT TOLERATING WELL. IV TO DOYLE #18G PATENT AND FLUSHES WELL. JOYCE CATH IN PLACE, DRAINING MARYJANE COLOR URINE. BILAT DIRK-BALDERRAMA TO SUCTION ORDERED. BED IN LOW LOCKED POSITION, CALL LIGHT WITHIN REACH. PLAN OF CARE DISCUSSED WITH PT. WILL CONTINUE TO MONITOR.
--- NOTE | 2017-12-01 07:30 | NUR ---
WILL RN NOTE: CALLED AND SPOKE WITH DR. MIMS (ON-CALL EPIC MD) AND MADE HIM AWARE ABOUT THE PATIENT'S BP OF 180/[address] MIMS GAVE AN ORDER, NOTED AND ACKNOWLEDGED.
[2017-12-01] MEDS: hydrALAZINE HCL IV 20 MG VIAL IV PRN ×2 (07:39→16:58)
[2017-12-01 08:00] VITALS: BP 134/64
[2017-12-01] MEDS: ENOXAPARIN SODIUM 30 MG/0.3 ML DISP.SYRIN SQ SCH (08:07)
[2017-12-01] MEDS: PANTOPRAZOLE 40 MG VIAL IV SCH (08:08)
[2017-12-01] MEDS: MORPHINE SULFATE INJ 4 MG/ML DISP.SYRIN IV PRN ×2 (09:18→21:39)
[2017-12-01] MEDS ORDERED: TPN BAG #2 IV PRN ×4 (11:00)
[2017-12-01 12:00] VITALS: BP 143/74
--- NOTE | 2017-12-01 12:50 | NUR ---
WILL RN NOTE: SPOKE WITH DR. TAFOYA AND MADE HER AWARE THAT THE PATIENT WAS STILL NOTED WITH AGGRESSIVE BEHAVIOR DESPITE HAVING A 1:1 SITTER. MD WAS ALSO MADE AWARE ABOUT THE BLOOD PRESSURE OF THE PATIENT THIS MORNING. MD WAS INFORMED THAT PATIENT HAS NO BP MEDICATIONS ON THE CURRENT MED LIST. MD GAVE AN ORDER FOR NORVASC 5MG VIA NGT X1 AND THEN CONTINUE TO MONITOR HIS BP AND GIVE THE HYDRALAZINE PRN. ALSO SAID THAT SHE WANTED THE PATIENT TO BE SEEN BY A PSYCHIATRIC MD. FAXED TO [facility] THE PATIENT'S FACE SHEET.
[2017-12-01] MEDS ORDERED: AMLODIPINE BESYLATE 5 MG TABLET NG ONE (13:10)
--- NOTE | 2017-12-01 13:40 | NUR ---
WILL RN NOTE: CALLED AND SPOKE WITH AJITH FROM THE PHARMACY AND CLARIFIED WITH HER RE: THE PATIENT'S POTASSIUM REPLACEMENT. INFORMED HER THAT THE PATIENT WAS ON TPN. PER AJITH THEY WERE AWARE FROM THE PHARMACY.
[2017-12-01] MEDS: POTASSIUM CL. PREMIX PERIPHER. 50 ML IV SCH ×2 (13:47→14:34)
[2017-12-01] MEDS ORDERED: TPN BAG #3 IV PRN ×2 (14:00)
[2017-12-01] MEDS: FAT EMULSION 20% 500 ML in PREMIX 1 EA IV SCH (15:57)
[2017-12-01 16:00] VITALS: BP 161/77
[2017-12-01] MEDS: FLUCONAZOLE IN NS 400 MG in PREMIX 1 EA IV SCH ×2 (16:43)
--- NOTE | 2017-12-01 17:45 | NUR ---
WILL RN NOTE: SPOKE WITH DARSHAN MEJÍA NP OF DR. ARRIETA AND ACCORDING TO HER, IF THE RESULT OF THE H. PYLORI COMES OUT GIVE HER A CALL. BUT IF THE RESULT WILL BE OUT AFTER 9 PM, SHE SAID THAT SHE'LL CHECK IT BY TOMORROW. WILL ENDORSE THIS TO THE PM SHIFT NURSE FOR CONTINUITY OF CARE.
--- NOTE | 2017-12-01 18:47 | NUR ---
WILL RN NOTE: SEEN BY DR. DONAHUE AND MADE HER AWARE OF THE PATIENT'S CURRENT BEHAVIORAL ISSUES OF BEING AGGRESSIVE AND TRYING TO PULL HIS LINES. WITH NEW ORDER, NOTED AND ACKNOWLEDGED.
--- NOTE | 2017-12-01 19:00 | NUR ---
WILL RN END NOTES: PT REMAINS IN BED. AWAKE AT THIS TIME. ALERT X1 WITH EPISODES OF CONFUSION STILL NOTED. SITTER REMAINS AT BEDSIDE FOR PT SAFETY. BILAT WRIST RESTRAINTS IN PLACE DUE TO ATTEMPTING TO PULL LINES/NGT. NGT REMAINS CONNECTED TO LOW SUCTION ORDERED. JOYCE CATH IN PLACE, DRAINING WELL. TPN RUNNING AT 70ML/HR, IV FLUIDS RUNNING AT 75ML/HR. PT TOLERATING WELL. BED IN LOW, LOCKED POSITION, BED ALARM ON. CALL LIGHT WITHIN REACH. WILL ENDORSE TO PM SHIFT NURSE FOR CONTINUITY OF CARE.
[2017-12-01 20:00] VITALS: BP 150/80
--- NOTE | 2017-12-01 20:00 | NUR ---
WILL RN NOTES RECEIVED PTS IN BED AWAKE ALERT WITH PERIODS OF CONFUSION ,REMAINS ON R/A SATING 94% ON ST, PAC AND PVC NOTED , NO SOB NO DISTRESS NOTED , ON NGT LEFT NOSETRILS SUCTION TO LOW INTERMITTENT, WITH GREENISH DARK GASTRIC CONTENT NOTED, PICC LINE ON LANA INTACT AND PATENT REMAINS ON LIPIDS AT 20 ML /HR , TPN AT 75CC/HR ,D51/2NS AT 75CC/HR ORDERED INFUSING WELL , ABDOMEN NOTED WITH STAPLE DRY INTACT , NO S/S OF INFECTION NOTED LEAVE OPEN TO AIR ORDERED , ALSO NOTED WITH 2 SJ DRAIN . WITH BILATERAL SOFT WRIST RESTRAINT TO PREVENT FROM PULLING INVASIVE TUBING ,SITTER AT BEDSIDE FREQUENT VISUAL CHECKED DONE.WILL CONTINUE TO MONITOR PTS.V/S STABLE AFEBRILE, Addendum: 12/02/17 at 0447 by MENG CARABALLO RN d5 1/2 ns infusing at 70cc/hr not 75cc/hr
--- NOTE | 2017-12-01 20:01 | NUR ---
WILL RN NOTE: SEEN BY DR. SALAMANCA AND HE REMOVED THE PATIENT'S DRESSING ON THE ABDOMINAL SURGICAL SITE. PER MD, LEAVE OPEN TO AIR. MD WAS INFORMED THAT THE PATIENT WAS NOTED WITH INTERMITTENT HICCUPS. MD GAVE AN ORDER FOR REGLAN, NOTED AND CARRIED OUT.
--- NOTE | 2017-12-01 21:00 | NUR ---
WILL RN NOTES DUE MEDS GIVEN ORDERED PTS NOTED WITH HICCUP ,REGLAN GIVEN ORDERED , ALL NEEDS ATTENDED TOO,CALL LIGHT WITHIN REACH, KEPT PTS CLEAN DRY AND COMFORTABLE , SITTER AT BEDSIDE , F/C INTACT AND PATENT DRAINING WITH YELLOWISH URINE OUTPUT, PTS C/O OF ABDOMINAL PAIN 8/10 MORPHINE 2MG GIVEN ORDERED WITH RELIEF, WILL CONTINUE TO MONITOR PTS.
[2017-12-01] MEDS: VALPROATE 250 MG in IV D5W 100 ML IV SCH (21:03)
[2017-12-01] MEDS: METOCLOPRAMIDE HCL 10 MG/2 ML VIAL IV SCH (21:03)
[2017-12-02] VITALS: BP 145/72
[2017-12-02] MEDS: INSULIN REGULAR, HUMAN 100 UNIT/ML 3 ML VIAL SQ PRN ×2 (00:42→05:47)
[2017-12-02] MEDS: BLOOD SUGAR DIAGNOSTIC 1 EACH STRIP IN SCH ×4 (00:43→17:30)
--- NOTE | 2017-12-02 02:20 | NUR ---
juana rn notes pts ngt drainage noted with blood tinged , v/s stable afebrile pts alert with confusion , bowel sound -noted hypoactive continue to monitor .tpn 3rd bag check with another rn and cosign,and started infusing well with no ase noted.
[2017-12-02] MEDS: METOCLOPRAMIDE HCL 10 MG/2 ML VIAL IV SCH ×4 (02:27→20:29)
--- NOTE | 2017-12-02 03:30 | NUR ---
juana rn notes paged and spoke to dr peter relayed pts condition re ngt noted with bloody output. drainage, with order made and carried out cbc , iv protonix 40mg to bid ,told him also pts on lovenox he said its ok to continue, v/s stable pts is alert with confusion , will continue to monitor pts ,sitter at bedside, pts remains npo .
[2017-12-02 04:00] VITALS: BP 131/60
[2017-12-02] MEDS: PANTOPRAZOLE 40 MG VIAL IV SCH ×3 (04:24→16:56)
[2017-12-02] MEDS: PIPERACILLIN /TAZOBACTAM 3.375 G in IV D5W 50 ML IV SCH ×3 (05:50→20:09)
[2017-12-02 06:13] LABS: EOSINOPHILS % (AUTO) 0.3 % (0.0-6.0); HEMATOCRIT 27 % (39-51); HEMOGLOBIN 8.6 g/dL (13.5-17.5); LYMPHOCYTES # (AUTO) 0.4 /CMM (0.8-4.8); LYMPHOCYTES % (AUTO) 2.2 % (20.0-44.0); MEAN CORPUSCULAR HGB CONC 32 g/dl (31.0-36.0); MEAN CORPUSCULAR VOLUME 78 fL (80-96); MONOCYTES # (AUTO) 1.1 /CMM (0.1-1.30); MONOCYTES % (AUTO) 6.2 % (2.0-12.0); NEUTROPHILS # (AUTO) 15.5 /CMM (1.8-8.9); NEUTROPHILS % (AUTO) 91.3 % (43.0-81.0); PLATELET COUNT (AUTO) 290 /CMM (150-450); RDW COEFFICIENT OF VARIATION 18.5 (11.5-15.0); RED BLOOD CELL COUNT(AUTO) 3.42 MIL/uL (4.5-6.0)
[2017-12-02 06:25] LABS: CALCIUM, SERUM 8.4 mg/dL (8.5-10.1); CARBON DIOXIDE 25 mmol/L (21-32); CHLORIDE 100 mmol/L (98-107); CREATININE 0.8 mg/dL (0.6-1.3); GLUCOSE 126 mg/dL (74-106); MAGNESIUM 1.9 mg/dL (1.8-2.4); PHOSPHORUS 4.2 mg/dL (2.5-4.9); POTASSIUM 3.4 mmol/L (3.5-5.1); SODIUM SERUM 133 mmol/L (136-145); UREA NITROGEN, BLOOD 12 mg/dL (7-18)
[2017-12-02] MEDS: IV D5/0.45 NACL 1,000 ML IV PRN (06:37)
[2017-12-02 08:00] VITALS: BP 125/61
--- NOTE | 2017-12-02 08:00 | NUR ---
TD/RN AM SHIFT INITIAL NOTES RECEIVED PT AWAKE IN BED WITH SITTER AT BEDSIDE. NO ACUTE CHANGE OF CONDITION NOTED. PT A/O X 2, CONFUSED, DENIES PAIN AT THIS TIME. ON ROOM AIR SATURATING @ 96%, LUNG SOUNDS CLEAR. ON TELE WITH SINUS TACHY, HR 106. NOTED NGT ON LEFT NARE, INTACT ON LOW INTERMITTENT SUCTIONING WITH DARK RED BLOOD OUTPUT. PICC LINE PATENT WITH ON GOING INFUSION OF LIPIDS @ 20CC/HR, TPN @ 75CC/HR AND D5,1/2NS @ 70CC/HR. NO NPO STATUS. ALSO NOTED ABDOMINAL SITE WITH DEVAUGHN, CLEAN, OPEN TO AIR, NO S/S OF INFECTION. DIRK DALE INTACT ON BILATERAL LATERAL SIDE OF THE ABDOMEN WITH CLEAN LIGHT YELLOW OUTPUT. JOYCE CATHETER INTACT WITH YELLOW URINE OUTPUT. DVT SLEEVE IN PLACED, PUMP ON. BILATERAL WRIST RESTRAINTS RELEASED TO CHECK FOR CIRCULATION AND COMFORT THEN PLACED BACK. PT IS COMFORTABLE AT THIS TIME, SCHEDULED AM MEDS TO BE GIVEN. CL WITHIN REACHED AND SAFETY MAINTAINED. ON GOING MONITORING.
[2017-12-02] MEDS: VALPROATE 250 MG in IV D5W 100 ML IV SCH ×2 (09:13→20:28)
[2017-12-02] MEDS: ENOXAPARIN SODIUM 30 MG/0.3 ML DISP.SYRIN SQ SCH (09:20)
[2017-12-02] MEDS: POTASSIUM CL. PREMIX PERIPHER. 50 ML IV SCH ×4 (11:11→17:32)
[2017-12-02] MEDS ORDERED: TPN BAG #4 IV PRN ×4 (14:00)
[2017-12-02] MEDS: FAT EMULSION 20% 500 ML in PREMIX 1 EA IV SCH (15:14)
[2017-12-02 16:00] VITALS: BP 126/68
[2017-12-02] MEDS: MORPHINE SULFATE INJ 4 MG/ML DISP.SYRIN IV PRN (16:57)
[2017-12-02] MEDS: FLUCONAZOLE IN NS 400 MG in PREMIX 1 EA IV SCH ×2 (17:33)
--- NOTE | 2017-12-02 19:15 | NUR ---
MS1/RN AM SHIFT END NOTES ALL NEEDS MET, NO ACUTE CHANGE OF CONDITION, NGT INTACT ON LOW INTERMITTENT SUCTIONING, (2) SJ INTACT, PICC LINE WITH ON GOING INFUSION OF TPN, LIPIDS, DIFLUCAN & D51/2NS. SITTER AT BEDSIDE. PT ENDORSED TO PM NURSE TO CONTINUE CARE. CL WITHIN REACHED AND SAFETY MAINTAINED.
--- NOTE | 2017-12-02 19:20 | NUR ---
RN M/S NOTE RECEIVED PATIENT LAYING IN BED AOX1, CONFUSED, BILATERAL SOFT WRIST RESTRAINTS IN PLACE, SITTER AT BED SIDE, SKIN IS CLEAR, NO REDNESS, F/C DRAINING TO GRAVITY, L SJ DRAIN WITH SEROSANGUINEOUS DRAINAGE AND R SJ DRAIN WITH SEROSANGUINEOUS DRAINAGE, NG TUBE L NARE, WITH INTERMITTENT SUCTION IN PLACE, NPO, LANA PICC LINE PATENT FLUSHING WELL WITH TPN AND LIPID, LANA #18G PATENT FLUSHING WELL, SITE CDI, DOYLE #18G PATENT IN PLACE, SITES CDI, NO CARDIAC OR RESPIRATORY DISTRESS NOTED, SAFETY MAINTAINED AT ALL TIMES, WILL CONTINUE TO MONITOR FOR ANY CHANGES IN CONDITION.
[2017-12-02] MEDS: HYDROCODONE/APAP 5/325MG 1 EACH TABLET PO PRN (19:42)
[2017-12-02 20:00] VITALS: BP 135/78
[2017-12-02] MEDS: PANTOPRAZOLE 80 MG in IV NS 0.9% 500 ML IV PRN (21:35)
[2017-12-03] MEDS: PIPERACILLIN /TAZOBACTAM 3.375 G in IV D5W 50 ML IV SCH ×5 (00:01→23:41)
[2017-12-03] MEDS: BLOOD SUGAR DIAGNOSTIC 1 EACH STRIP IN SCH ×5 (00:02→23:39)
[2017-12-03] MEDS: MORPHINE SULFATE INJ 4 MG/ML DISP.SYRIN IV PRN ×2 (00:02→04:15)
[2017-12-03] MEDS ORDERED: TPN BAG #5 IV PRN ×2 (02:00)
[2017-12-03] MEDS: METOCLOPRAMIDE HCL 10 MG/2 ML VIAL IV SCH ×4 (02:05→20:15)
[2017-12-03 04:00] VITALS: BP 138/61
[2017-12-03 07:21] LABS: BASOPHILS % (AUTO) 0.2 % (0.0-2.0); EOSINOPHILS % (AUTO) 1.1 % (0.0-6.0); HEMATOCRIT 27 % (39-51); HEMOGLOBIN 8.5 g/dL (13.5-17.5); LYMPHOCYTES # (AUTO) 0.7 /CMM (0.8-4.8); LYMPHOCYTES % (AUTO) 3.6 % (20.0-44.0); MEAN CORPUSCULAR HGB CONC 32 g/dl (31.0-36.0); MEAN CORPUSCULAR VOLUME 78 fL (80-96); MONOCYTES # (AUTO) 0.9 /CMM (0.1-1.30); MONOCYTES % (AUTO) 4.2 % (2.0-12.0); NEUTROPHILS # (AUTO) 18.6 /CMM (1.8-8.9); NEUTROPHILS % (AUTO) 90.9 % (43.0-81.0); PLATELET COUNT (AUTO) 360 /CMM (150-450); RDW COEFFICIENT OF VARIATION 18.4 (11.5-15.0); RED BLOOD CELL COUNT(AUTO) 3.41 MIL/uL (4.5-6.0); WHITE BLOOD COUNT (AUTO) 20.5 K/uL (4.3-11.0)
[2017-12-03 07:32] LABS: CALCIUM, SERUM 7.9 mg/dL (8.5-10.1); CARBON DIOXIDE 23 mmol/L (21-32); CHLORIDE 101 mmol/L (98-107); CREATININE 0.8 mg/dL (0.6-1.3); GLUCOSE 113 mg/dL (74-106); MAGNESIUM 1.7 mg/dL (1.8-2.4); PHOSPHORUS 3.8 mg/dL (2.5-4.9); POTASSIUM 3.8 mmol/L (3.5-5.1); SODIUM SERUM 135 mmol/L (136-145); UREA NITROGEN, BLOOD 16 mg/dL (7-18)
[2017-12-03 07:34] LABS: TRIGLYCERIDES 159 mg/dL (30-150)
[2017-12-03 08:00] VITALS: BP 151/80
[2017-12-03] MEDS: PANTOPRAZOLE 80 MG in IV NS 0.9% 500 ML IV PRN (08:00)
--- NOTE | 2017-12-03 08:00 | NUR ---
MS RN NOTE PATIENT IN BED ,ALL NEEDS ATTENDED WITH SITTER ORDERED AL WITH CONFUSION DISORIENTED TRYING TO GET OUT OFF BED WITH N GTUBE WITJH INTERMITTED SUCTION WITH DARK BROWN COLOR .WITH JOYCE CATH TO GRAVITY ON NPO STATUS SEEN BY DR SALAMANCA WITH ORDER CT ABDOMEN AND STRICT NPO ,ATIVAN 1 MG Q4 HOUR PRN ABDOMINAL INCISION INTACT, DOYLE HL ON PROTONIC DRIP RT UPPER ARM ON IVF RT UPPER ARM PICC LINE WITH TPN AND LIPIDS ORDERED , ON SOFT RESTRAIN ORDERED BED IN LOWEST AND LOCKED POSITION WILL CONT TO MONITOR CLOSELY
[2017-12-03] MEDS: LORAZEPAM INJ 2 MG/ML VIAL IV PRN ×3 (08:14→23:40)
--- NOTE | 2017-12-03 08:15 | NUR ---
RN NOTE PER DR SALAMANCA OK TO PLACE ON TELE MONITOR Addendum: 12/03/17 at 1921 by CEDRIC GLEZ RN DR SALAMANCA AWARE THAT HR 134 AT THIS TIME
[2017-12-03] MEDS: PANTOPRAZOLE 40 MG VIAL IV SCH ×2 (08:18→16:03)
[2017-12-03 08:44] LABS: EOSINOPHILS % (MANUAL) 1 % (0-4); LYMPHOCYTES % (MANUAL) 3 % (16-48); MONOCYTES % (MANUAL) 3 % (0-11.0); NEUTROPHILS % (MANUAL) 93 (42-76)
[2017-12-03] MEDS: ENOXAPARIN SODIUM 40 MG/0.4 ML DISP.SYRIN SQ SCH (09:00)
[2017-12-03] MEDS ORDERED: METOCLOPRAMIDE HCL 10 MG/2 ML VIAL IV SCH (09:30)
--- NOTE | 2017-12-03 09:41 | NUR ---
MS FOX NOTE TAKEN TO CT Addendum: 12/03/17 at 0942 by CEDRIC GLEZ RN RT SIDE AND LT SIDE ABDOMEN WITH SJ DRAIN
[2017-12-03] MEDS: VALPROATE 250 MG in IV D5W 100 ML IV SCH ×2 (09:46→16:46)
--- NOTE | 2017-12-03 10:24 | NUR ---
MS RN NOTE PER DR FIELD OK TO HOLD LOVENOX TODAY
[2017-12-03] MEDS: Magnesium 1GM/D5W 100ML PREMIX 100 ML IV SCH ×2 (10:30→11:20)
[2017-12-03] MEDS: INSULIN REGULAR, HUMAN 100 UNIT/ML 3 ML VIAL SQ PRN ×2 (11:50→23:40)
[2017-12-03 12:00] VITALS: BP_SYST 149; BP_SYST 151; BP_DIAS 80
--- NOTE | 2017-12-03 12:08 | NUR ---
PYROMETER OPERATOR NOTE CALLED TO DR SALAMANCA REPORTED ABOUT CT SCAN RESULT OF ABDOMEN AND ALSO AWARE THAT INCISIONAL SITE WITH SMALL AMT OD BLEEDING NOTED ,NO NEW ODDER GIVEN AT THIS TIME
--- NOTE | 2017-12-03 12:13 | NUR ---
BAKELITE MOLDER NOTE DR FIELD AWARE THAT WBC 20.0
--- NOTE | 2017-12-03 12:46 | NUR ---
ABHISHEK FOX NOTE DARSHAN HERNANDEZ RN ACCOUNTING ASSISTANT SEEN PATIENT AWARE DEIDRE PATENT AGITATED AND SMALL AMT OF GTUBE SUCTION BROWN COLOR GAVE STAT ORDERS Addendum: 12/03/17 at 1258 by CEDRIC GLEZ RN ATIVAN 1 MG IVP GIVEN ORDERED PATIENT VERY AGITATED Addendum: 12/03/17 at 1301 by CEDRIC GLEZ RN DARSHAN HERNANDEZ RN, NP AWARE OF CT ABDOMEN
[2017-12-03 13:43] LABS: BASOPHILS % (AUTO) 0.1 % (0.0-2.0); EOSINOPHILS % (AUTO) 0.4 % (0.0-6.0); HEMATOCRIT 24 % (39-51); HEMOGLOBIN 7.7 g/dL (13.5-17.5); LYMPHOCYTES # (AUTO) 0.8 /CMM (0.8-4.8); LYMPHOCYTES % (AUTO) 3.5 % (20.0-44.0); MEAN CORPUSCULAR HGB CONC 32 g/dl (31.0-36.0); MEAN CORPUSCULAR VOLUME 78 fL (80-96); MONOCYTES # (AUTO) 0.7 /CMM (0.1-1.30); MONOCYTES % (AUTO) 3.1 % (2.0-12.0); NEUTROPHILS # (AUTO) 21.1 /CMM (1.8-8.9); NEUTROPHILS % (AUTO) 92.9 % (43.0-81.0); PLATELET COUNT (AUTO) 390 /CMM (150-450); RDW COEFFICIENT OF VARIATION 17.8 (11.5-15.0); RED BLOOD CELL COUNT(AUTO) 3.13 MIL/uL (4.5-6.0); WHITE BLOOD COUNT (AUTO) 22.7 K/uL (4.3-11.0)
[2017-12-03] MEDS ORDERED: HALOPERIDOL LACTATE INJ 5 MG/ML VIAL IM STA (13:50)
--- NOTE | 2017-12-03 13:51 | NUR ---
LEASING SALES CONSULTANT NOTE SPOKE WITH DR TAFYOA NOTIFIED THAT PATIENT VERY AGITATED RESTLESS TRYING TO REMOVE ALL LINE. ATIVAN WAS GIVEN EARLIER ORDERED HALDOL 5MG IM TIME ONE ,WILL F\U Addendum: 12/03/17 at 1353 by CEDRIC GLEZ RN DR TAFOYA AWARE OF CT ABDOMEN RESULT
[2017-12-03] MEDS ORDERED: TPN BAG #6 IV PRN ×4 (14:00)
--- NOTE | 2017-12-03 14:08 | NUR ---
ACCOUNTS RECEIVABLE SPECIALIST NOTE VERY RESTLESS AND AGITATED ,TRYING TO REMOVE ALL LINES AND GTUBE ,PER DR ALEX TSANG GIVE HOLD, GIVEN ORDERED SAT 95% Addendum: 12/03/17 at 1610 by CEDRIC GLEZ RN N G TUBE TRYING TO REMOVE
[2017-12-03 14:19] LABS: NEUTROPHILS % (MANUAL) 86 (42-76)
[2017-12-03 14:20] LABS: BAND % (MANUAL) 4 % (0.0-5.0); LYMPHOCYTES % (MANUAL) 6 % (16-48)
[2017-12-03 14:23] LABS: MONOCYTES % (MANUAL) 4 % (0-11.0)
[2017-12-03] MEDS: FAT EMULSION 20% 500 ML in PREMIX 1 EA IV SCH (14:27)
--- NOTE | 2017-12-03 14:28 | NUR ---
ELECTRONIC SCANNER OPERATOR NOTE PER PHARMACY DONT GIVE LIPIDS TODAY , SPOKE WITH IZABELLA PHARMACIST ,ORDER Q48 HOUR NOW ,WILL F\U ,
--- NOTE | 2017-12-03 14:53 | NUR ---
DIRECTOR INTERNATIONAL NOTE SPOKE WITH DR ODNAHUE PSYCHIATRIST, NOTIFIED THAT PATIENT VERY RESTLESS AND AGITATED ,ORDERED DEPACON TID 250 MG IV ALSO AWARE THAT HALDOL WAS GIVEN EARLIER WILL F\U Addendum: 12/03/17 at 1455 by CEDRIC GLEZ RN SEEN BY RUDDY MAS AWARE THAT WBC 20.[address] ABDOMEN RESULT
[2017-12-03] MEDS: FLUCONAZOLE IN NS 400 MG in PREMIX 1 EA IV SCH ×2 (15:00)
[2017-12-03 15:23] LABS: INR 0.91 (0.87-1.13)
--- NOTE | 2017-12-03 15:24 | NUR ---
DISTRICT TRAFFIC CHIEF NOTE SPOKE RANDA HERNANDEZ RN ELECTRICAL ENGINEERING TECHNOLOGIST AWARE THAT PATIENT IV BID AND HAS PROTONIX DRIP AND , STATED STOP PROTONIX DRIP, ORDER CARIED OUT
--- NOTE | 2017-12-03 15:46 | NUR ---
MARKETING COMMUNICATIONS LEADER NOTE SPOKE WITH DR LOZANO GI DOCTOR NOTIFIED THAT PATIENT HAS NOW SMALL AMT DARK BROWN COLOR STOOL ALSO AWARE THAT STIL ON LOW INTERMITTED SUCTION AWARE THAT WBC 22.0 , NO NEW ORDER AT THIS TIME AWARE THAT CT SCAN RESULT OF ABDOMEN
[2017-12-03 15:59] LABS: D-DIMER 15.45 mg/L(FEU (0.17-0.50)
[2017-12-03 16:00] VITALS: BP 140/58
--- NOTE | 2017-12-03 17:10 | NUR ---
LINING MAKER NOTE UNABLE TO REMOVE SOFT RESTRAIN ,PATIENT TILL AGITATED TRYING TO REMOVE ALL LINES
--- NOTE | 2017-12-03 18:14 | NUR ---
FARM MACHINERY MECHANIC NOTE STIL HAS SOME DRAINAGE FROM RT SIDE SJ 10 ML AND LT SIDE 50 ML DRAINAGE, KEEP CLEAN DRY ,CONT ON TPN ORDERED
[2017-12-03 20:00] VITALS: BP 149/68
[2017-12-03 21:54] LABS: CARBON DIOXIDE 25 mmol/L (21-32); CHLORIDE 99 mmol/L (98-107); CREATININE 0.9 mg/dL (0.6-1.3); GLUCOSE 99 mg/dL (74-106); POTASSIUM 3.6 mmol/L (3.5-5.1); SODIUM SERUM 134 mmol/L (136-145); UREA NITROGEN, BLOOD 14 mg/dL (7-18)
[2017-12-03 22:00] LABS: ALANINE AMINOTRANSFERASE 9 U/L (12-78); ALBUMIN 1.6 g/dL (3.4-5.0); ALKALINE PHOSPHATASE 97 U/L (46-116); ASPARTATE AMINOTRANSFERASE 16 U/L (15-37); BILIRUBIN,TOTAL 0.7 mg/dL (0.2-1.0)
[2017-12-03] MEDS: IV D5/0.45 NACL 1,000 ML IV PRN (23:50)
[2017-12-04] VITALS: BP 148/78
[2017-12-04] MEDS: VALPROATE 250 MG in IV D5W 100 ML IV SCH ×3 (01:35→17:31)
[2017-12-04] MEDS: METOCLOPRAMIDE HCL 10 MG/2 ML VIAL IV SCH ×4 (01:36→21:57)
[2017-12-04] MEDS ORDERED: TPN BAG #7 IV PRN ×2 (03:00)
[2017-12-04 04:00] VITALS: BP 141/69
[2017-12-04] MEDS: PIPERACILLIN /TAZOBACTAM 3.375 G in IV D5W 50 ML IV SCH ×2 (05:23→11:32)
[2017-12-04] MEDS: BLOOD SUGAR DIAGNOSTIC 1 EACH STRIP IN SCH ×3 (05:23→17:28)
[2017-12-04] MEDS: INSULIN REGULAR, HUMAN 100 UNIT/ML 3 ML VIAL SQ PRN (05:24)
[2017-12-04 07:04] LABS: CALCIUM, SERUM 8.1 mg/dL (8.5-10.1); CARBON DIOXIDE 24 mmol/L (21-32); CHLORIDE 102 mmol/L (98-107); CREATININE 0.9 mg/dL (0.6-1.3); GLUCOSE 108 mg/dL (74-106); MAGNESIUM 2.1 mg/dL (1.8-2.4); PHOSPHORUS 4.3 mg/dL (2.5-4.9); POTASSIUM 3.9 mmol/L (3.5-5.1); SODIUM SERUM 135 mmol/L (136-145); UREA NITROGEN, BLOOD 12 mg/dL (7-18)
[2017-12-04 08:00] VITALS: BP 123/57
--- NOTE | 2017-12-04 08:00 | NUR ---
TELE1/RN AM SHIFT INITIAL NOTES RECEIVED PT ASLEEP IN BED WITH SITTER AT BEDSIDE. NO FEVER OR ACUTE CHANGE OF CONDITION NOTED. PT A/O X 2, CONFUSED. ON ROOM AIR SATURATING @ 98%, LUNG SOUNDS CLEAR. ON TELE WITH SINUS TACHY, HR 106. NOTED NGT ON LEFT NARE, INTACT ON LOW INTERMITTENT SUCTIONING WITH MINIMAL DARK RED BLOOD OUTPUT FROM PREVIOUS SHIFT. PICC LINE PATENT WITH ON GOING INFUSION OF TPN @ 75CC/HR AND D5,1/2NS @ 30CC/HR. NO NPO STATUS. ALSO NOTED ABDOMINAL SITE WITH DEVAUGHN, DRESSING INTACT AND CLEAN, DIRK DALE INTACT ON BILATERAL LATERAL SIDE OF THE ABDOMEN WITH CLEAN LIGHT YELLOW OUTPUT. JOYCE CATHETER INTACT WITH YELLOW URINE OUTPUT. DVT SLEEVE IN PLACED, PUMP ON. BILATERAL WRIST RESTRAINTS RELEASED TO CHECK FOR CIRCULATION AND COMFORT THEN PLACED BACK. PT IS COMFORTABLE AT THIS TIME, SCHEDULED AM MEDS TO BE GIVEN. CL WITHIN REACHED AND SAFETY MAINTAINED. ON GOING MONITORING.
[2017-12-04] MEDS: ENOXAPARIN SODIUM 40 MG/0.4 ML DISP.SYRIN SQ SCH (09:00)
[2017-12-04] MEDS: PANTOPRAZOLE 40 MG VIAL IV SCH ×2 (09:24→16:41)
[2017-12-04] MEDS ORDERED: TPN BAG #8 IV PRN ×4 (09:30)
[2017-12-04] MEDS ORDERED: TPN BAG #9 IV PRN ×2 (09:30)
[2017-12-04 12:00] VITALS: BP 138/68
--- NOTE | 2017-12-04 12:15 | NUR ---
TELE1/RN ROUNDS - DR. TAN UPDATED PT'S CONDITION. PT SEEN & EXAMINED BY DR. TAN, NO NEW ORDERS RECEIVED AT THIS TIME.
--- NOTE | 2017-12-04 12:39 | NUR ---
TELE1/RN NG PLACEMENT VERIFIED CHEST X-RAY PERFORMED TO CONFIRM PLACEMENT OF NGT, PER RESULT TIP IS IN THE RIGHT PLACE, NOTIFIED DR. SALAMANCA VIA PHONE, ALSO IN COMMUNICATION WITH DR. TAFOYA. CONTINUED MONITORING.
[2017-12-04] MEDS: FAT EMULSION 20% 500 ML in PREMIX 1 EA IV SCH (14:29)
[2017-12-04] MEDS ORDERED: FEE PK DOSING 1 MIN EA MC ONE (15:05)
[2017-12-04 16:00] VITALS: BP 142/67
[2017-12-04] MEDS: MORPHINE SULFATE INJ 4 MG/ML DISP.SYRIN IV PRN ×2 (16:41→23:29)
--- NOTE | 2017-12-04 18:50 | NUR ---
TELE1/RN STAPLE DRAINAGE SURGICAL SITE CLEANED, NOTED DEVAUGHN IN THE ABDOMEN OOZING WITH MIXTURE OF THICK REDDISH DRAINAGE, SEND PHOTOS TO DR. SALAMANCA. WITH T.O TO REMOVED 4 DEVAUGHN I THE LOWER AREA OF THE SURGICAL SITE, CLEANSE WITH BETADINE, THEN COVER WITH DRY DRESSING, TO LET DRAINAGE FLOW-UP. NURSING DINKEY SKINNER AND CHARGE NURSE MADE AWARE.
[2017-12-04] MEDS: MEROPENEM 1 G in IV NS 0.9% 100 ML IV SCH (18:53)
[2017-12-04] MEDS ORDERED: DIATR MEGLU/DIATRIZOATE SODIUM 120 ML BOTTLE (GASTROGRAPHIN) ONE ×2 (19:22→19:57)
[2017-12-04] MEDS: VANCOMYCIN 1 GM in IV NS 0.9% 250 ML IV SCH (19:50)
[2017-12-04 20:00] VITALS: BP 142/72
--- NOTE | 2017-12-04 20:00 | NUR ---
1999 PT PICKED UP FOR UPPER GI STUDY TPN, LIPIDS AND IV ABX PUT ON HOLD AT THIS TIME. RUNNING BEHIND SCHEDULE.
--- NOTE | 2017-12-04 20:00 | NUR ---
TELE1/RN AM SHIFT END NOTES ALL NEEDS MET. PT JUST LEFT THE FLOOR UNIT FOR X-RAY WITH GASTROGRAFFIN OF UPPER GI. REMOVED 4 DEVAUGHN ABDOMINAL SURGICAL SITE FOR DRAINAGE PER DR. SALAMANCA'S ORDER. PT ENDORSED TO PM NURSE TO CONTINUE CARE. ALSO ENDORSED TO NOTIFY DR. VIGIL OF RESULT OF UPPER GI X-RAY. SAFETY MAINTAINED DURING THE SHIFT.
--- NOTE | 2017-12-04 20:05 | NUR ---
RN TEL INITIAL NOTES RECEIVED PT IN BED AOX2 WITH CONFUSION, ON R/A, W/ NGT TO GASTRIC SUCTION ON INTERMITTENT SUCTION WITH DARK BROWN GASTRIC CONTENT NOTED IN CANISTER. AM SHIFT NURSE ENDORSED THAT NOT O/P ON HER SHIFT, PLACED ON NGT CONFIRMED IN PLACE. W/ LANA PICC CONNECTED TO TPN/ LIPIDS/ D5 1/2 NS @30ML, IV ATB RUNNING BEHIND SCHEDULED PER AM NURSE BEBA NOT ABLE TO INFUSE ALL, ALSO PT PICKED UP FOR UPPER GI STUDY BEFORE VANCO WAS STARTED. F/C PATENT WITH C/Y O/P DRAINING TO GRAVITY, SITTER AT BED SIDE , PT CLEAN AND DRY APPEARS COMFORTABLE AT THIS TIME, ABD WOUND LOW MID ABD DRAINING ACCORDING TO BEBA DOMINGO AWARE, WITH ORDER TO REMOVE LOW DEVAUGHN IN ORDER TO EASE DRAINAGE.
--- NOTE | 2017-12-04 21:11 | NUR ---
2100 PT RETURNED TO THE RM FROM UPPER GI STUDY, AND TO BE PICKED UP IN 1 HR.
--- NOTE | 2017-12-04 21:45 | NUR ---
[address] VIRAMONTES ASSESSED ABD WOUND 2129 SMALL BOWEL FOLOW DONE BY BED SIDE MD PRESENT TO READ RESULT.
[2017-12-04] MEDS: FLUCONAZOLE IN NS 400 MG in PREMIX 1 EA IV SCH ×2 (22:32)
[2017-12-05] VITALS (14 sets, daily range): BP systolic 129–158; BP diastolic 53–97
[2017-12-05] MEDS: BLOOD SUGAR DIAGNOSTIC 1 EACH STRIP IN SCH ×5 (00:13→23:16)
[2017-12-05] MEDS: LORAZEPAM INJ 2 MG/ML VIAL IV PRN ×2 (00:40→22:47)
[2017-12-05] MEDS: MEROPENEM 1 G in IV NS 0.9% 100 ML IV SCH ×3 (00:51→21:11)
[2017-12-05] MEDS: METOCLOPRAMIDE HCL 10 MG/2 ML VIAL IV SCH ×4 (01:02→21:22)
[2017-12-05] MEDS: VALPROATE 250 MG in IV D5W 100 ML IV SCH ×2 (01:49→09:00)
[2017-12-05] MEDS: VANCOMYCIN 1 GM in IV NS 0.9% 250 ML IV SCH ×2 (03:46→21:54)
[2017-12-05 07:04] LABS: CALCIUM, SERUM 8.3 mg/dL (8.5-10.1); CARBON DIOXIDE 24 mmol/L (21-32); CHLORIDE 103 mmol/L (98-107); CREATININE 0.7 mg/dL (0.6-1.3); GLUCOSE 111 mg/dL (74-106); PHOSPHORUS 3.8 mg/dL (2.5-4.9); POTASSIUM 3.6 mmol/L (3.5-5.1); SODIUM SERUM 137 mmol/L (136-145); UREA NITROGEN, BLOOD 12 mg/dL (7-18)
--- NOTE | 2017-12-05 07:07 | NUR ---
RN TEL CLOSING NOTE ENDORSED PT CONT TPN, LIPIDS AND ABX, DRESSING ON MID ABD CHANGED PRN, WILL ENDORSE TO AM SHIFT RN TO CONT TX. BS STABLE THROUGH SHIFT. WILL ENDORSE TO AM SHIFT TO WARNER.
--- NOTE | 2017-12-05 07:40 | NUR ---
RN TEL INITIAL NOTES RECEIVED PT IN BED AOX2 WITH CONFUSION, ON R/A, W/ NGT FOR INTERMITTENT GASTRIC SUCTION WITH DARK BROWN GASTRIC CONTENT NOTED IN CANISTER. ON TELE MONITOR WITH SINUS TACHY OF 113. W/ LANA PICC CONNECTED TO TPN/ LIPIDS/ D5 1/2 NS @30ML. F/C PATENT DRAINING CLEAR YELLOW URINE.BILATERAL SJ DRAIN. SITTER AT BED SIDE .BED IS LOCKED AND IN LOW POSITION.SAFETY MAINTAINED.HAS BILATERAL SOFT RESTRAINTS.CONTINUE TO MONITOR.
[2017-12-05] MEDS: PANTOPRAZOLE 40 MG VIAL IV SCH (08:05)
[2017-12-05] MEDS: ENOXAPARIN SODIUM 40 MG/0.4 ML DISP.SYRIN SQ SCH (08:09)
[2017-12-05 08:53] LABS: EOSINOPHILS % (AUTO) 0.6 % (0.0-6.0); HEMATOCRIT 21 % (39-51); LYMPHOCYTES # (AUTO) 0.6 /CMM (0.8-4.8); LYMPHOCYTES % (AUTO) 2.5 % (20.0-44.0); MEAN CORPUSCULAR HGB CONC 32 g/dl (31.0-36.0); MEAN CORPUSCULAR VOLUME 78 fL (80-96); MONOCYTES # (AUTO) 0.7 /CMM (0.1-1.30); NEUTROPHILS % (AUTO) 93.9 % (43.0-81.0); PLATELET COUNT (AUTO) 522 /CMM (150-450); RDW COEFFICIENT OF VARIATION 17.7 (11.5-15.0); RED BLOOD CELL COUNT(AUTO) 2.69 MIL/uL (4.5-6.0); WHITE BLOOD COUNT (AUTO) 22.4 K/uL (4.3-11.0)
[2017-12-05 08:57] LABS: HEMOGLOBIN 6.7 g/dL (13.5-17.5)
--- NOTE | 2017-12-05 09:00 | NUR ---
LIFT SLAB OPERATOR NOTE GOT CALL FROM LAB FOR HB 6.7,HCT 21.WILL FOLLOW UP WITH DOCTOR.
--- NOTE | 2017-12-05 09:15 | NUR ---
PROFESSOR OF APOLOGETICS NOTES LEFT MESSAGE TO REGARDING HB AND HCT RESULT.
[2017-12-05 09:46] LABS: BAND % (MANUAL) 3 % (0.0-5.0); LYMPHOCYTES % (MANUAL) 3 % (16-48); MONOCYTES % (MANUAL) 4 % (0-11.0); NEUTROPHILS % (MANUAL) 90 (42-76)
[2017-12-05] MEDS: MORPHINE SULFATE INJ 4 MG/ML DISP.SYRIN IV PRN ×3 (11:36→21:05)
[2017-12-05] MEDS ORDERED: DIATR MEGLU/DIATRIZOATE SODIUM 30 ML BOTTLE (GASTROGRAPHIN) ONE (11:37)
--- NOTE | 2017-12-05 14:00 | NUR ---
RN NOTES LOTTIE MIRAMONTES MADE BERNAL ABOUT THE ID REQUEST TO D/C [facility].OK TO D/C JOYCE.DISCONTINUED JOYCE CATH.
[2017-12-05] MEDS ORDERED: IOHEXOL-300 100 ML VIAL IV ONE (14:28)
[2017-12-05] MEDS ORDERED: IV NS 0.9% 500 ML IV ONE (14:28)
[2017-12-05] MEDS ORDERED: CT SWABBABLE VALVE TRANS SET 1 EA INFUS.SET MC ONE (14:28)
[2017-12-05] MEDS ORDERED: TPN BAG #10 IV PRN ×4 (14:30)
[2017-12-05] MEDS ORDERED: TPN BAG #11 IV PRN ×2 (14:30)
--- NOTE | 2017-12-05 15:00 | NUR ---
RN NOTES SEEN BY GOT NEW ORDER FOR PROTONIX IV BID.PHARMACY MADE AWARE.
--- NOTE | 2017-12-05 15:30 | NUR ---
dr. buck notified regarding ct result faxed to his office and paged c/o winnie nesbittits order.
[2017-12-05] MEDS ORDERED: PANTOPRAZOLE 80 MG in IV NS 0.9% 500 ML IV PRN (16:00)
[2017-12-05] MEDS ORDERED: FUROSEMIDE 20 MG/2 ML VIAL IV ONE ×2 (16:00→20:00)
--- NOTE | 2017-12-05 16:00 | NUR ---
RN NOTES CT SCAN DONE.CONSENT SIGNED BY THE PATIENT,WAITING FOR RESULT.
--- NOTE | 2017-12-05 16:45 | NUR ---
RN NOTES GOT BLOOD TRANSFUSION ORDER FROM .TYPE NAD SCREEN DONE.BLOOD PICKED UP FROM BLOOD BANK.STARTED TRANSFUSION.VITAL SIGNS IS STABLE.CONTINUE TO MONITOR.
[2017-12-05] MEDS ORDERED: PANTOPRAZOLE 40 MG VIAL IV SCH (17:00)
--- NOTE | 2017-12-05 19:00 | NUR ---
RN SHIFT END NOTES PT IN BED AOX2 WITH CONFUSION,ONGOING BLOOD TRANSFUSION. ON R/A, W/ NGT FOR INTERMITTENT GASTRIC SUCTION WITH DARK BROWN GASTRIC CONTENT NOTED IN CANISTER.. W/ LANA PICC CONNECTED TO TPN/ LIPIDS/ D5 1/2 NS @30ML.PATENT ABLE TO VOID AFTER F/C REMOVAL.VOIDED IN URINAL 300ML. BILATERAL SJ DRAIN DRAINED 15ML FROM L SIDE AND 5 ML FROM R SIDE . SITTER AT BED SIDE .BED IS LOCKED AND IN LOW POSITION.SAFETY MAINTAINED.HAS BILATERAL SOFT RESTRAINTS.WILL ENDORSE TO PM NURSE FOR WARNER.
[2017-12-05] MEDS: FLUCONAZOLE IN NS 400 MG in PREMIX 1 EA IV SCH ×2 (19:58)
[2017-12-05] MEDS: IV D5/0.45 NACL 1,000 ML IV PRN (20:37)
[2017-12-05] MEDS: INSULIN REGULAR, HUMAN 100 UNIT/ML 3 ML VIAL SQ PRN (23:14)
[2017-12-05] MEDS: VALPROATE 500 MG in IV D5W 100 ML IV SCH (23:35)
[2017-12-06] MEDS: METOCLOPRAMIDE HCL 10 MG/2 ML VIAL IV SCH ×4 (01:55→19:58)
[2017-12-06 03:15] LABS: BASOPHILS # (AUTO) 0.2 /CMM (0.0-0.2); BASOPHILS % (AUTO) 1.2 % (0.0-2.0); EOSINOPHILS % (AUTO) 1.2 % (0.0-6.0); HEMATOCRIT 23 % (39-51); HEMOGLOBIN 7.6 g/dL (13.5-17.5); LYMPHOCYTES # (AUTO) 0.8 /CMM (0.8-4.8); LYMPHOCYTES % (AUTO) 4.9 % (20.0-44.0); MEAN CORPUSCULAR HGB CONC 32 g/dl (31.0-36.0); MEAN CORPUSCULAR VOLUME 80 fL (80-96); MONOCYTES # (AUTO) 0.8 /CMM (0.1-1.30); NEUTROPHILS # (AUTO) 14.5 /CMM (1.8-8.9); NEUTROPHILS % (AUTO) 87.7 % (43.0-81.0); PLATELET COUNT (AUTO) 620 /CMM (150-450); RDW COEFFICIENT OF VARIATION 18.3 (11.5-15.0); RED BLOOD CELL COUNT(AUTO) 2.94 MIL/uL (4.5-6.0); WHITE BLOOD COUNT (AUTO) 16.5 K/uL (4.3-11.0)
[2017-12-06 03:39] LABS: ALANINE AMINOTRANSFERASE 11 U/L (12-78); ALBUMIN 1.5 g/dL (3.4-5.0); ALKALINE PHOSPHATASE 126 U/L (46-116); ASPARTATE AMINOTRANSFERASE 22 U/L (15-37); BILIRUBIN,TOTAL 0.6 mg/dL (0.2-1.0); CALCIUM, SERUM 8.1 mg/dL (8.5-10.1); CARBON DIOXIDE 25 mmol/L (21-32); CHLORIDE 99 mmol/L (98-107); CREATININE 0.7 mg/dL (0.6-1.3); GLUCOSE 104 mg/dL (74-106); MAGNESIUM 1.8 mg/dL (1.8-2.4); PHOSPHORUS 3.6 mg/dL (2.5-4.9); POTASSIUM 3.5 mmol/L (3.5-5.1); SODIUM SERUM 133 mmol/L (136-145); UREA NITROGEN, BLOOD 10 mg/dL (7-18)
[2017-12-06 03:46] LABS: BAND % (MANUAL) 2 % (0.0-5.0); LYMPHOCYTES % (MANUAL) 5 % (16-48); MONOCYTES % (MANUAL) 4 % (0-11.0); NEUTROPHILS % (MANUAL) 89 (42-76); VALPROIC ACID 17 ug/mL (50-100)
[2017-12-06 04:00] VITALS: BP 133/67
[2017-12-06] MEDS: MEROPENEM 1 G in IV NS 0.9% 100 ML IV SCH ×4 (04:04→23:31)
[2017-12-06] MEDS: BLOOD SUGAR DIAGNOSTIC 1 EACH STRIP IN SCH ×4 (06:00→23:40)
[2017-12-06 08:00] VITALS: BP 152/73
--- NOTE | 2017-12-06 08:15 | NUR ---
GLOBAL CEO NOTE PATIENT A/0X2 WITH PERIODS OF CONFUSION. REMOVED RESTRAINTS PATIENT COOPERATIVE NOT REMOVING LINES OR TUBING. NO C/O PAIN 0. SITTER @ BEDSIDE. WILL CONTINUE TO MONITOR CLOSELY. ALL SAFETY MEASURES IN PLACE. PICC LINE PATENT AND INTACT TPN @ 75 ML/HR BAG # 10. D5NS @ 30ML/HR PATIENT FLUSHED AND INTACT. L HAND PROTONIX DRIP RUNNING PATENT AND INTACT.
[2017-12-06] MEDS: ENOXAPARIN SODIUM 40 MG/0.4 ML DISP.SYRIN SQ SCH (08:38)
[2017-12-06] MEDS: VALPROATE 500 MG in IV D5W 100 ML IV SCH ×2 (08:42→20:00)
[2017-12-06] MEDS: MORPHINE SULFATE INJ 4 MG/ML DISP.SYRIN IV PRN ×3 (11:09→20:01)
[2017-12-06] MEDS: FAT EMULSION 20% 500 ML in PREMIX 1 EA IV SCH (14:38)
[2017-12-06 16:00] VITALS: BP 153/75
[2017-12-06] MEDS: PANTOPRAZOLE 40 MG VIAL IV SCH (16:12)
[2017-12-06] MEDS: FLUCONAZOLE IN NS 400 MG in PREMIX 1 EA IV SCH ×2 (16:12)
--- NOTE | 2017-12-06 17:56 | NUR ---
INDUSTRIAL CONTROLLER NOTE CONSENT SIGNED FOR ULTRASOUND AND CT BY PATIENT.
[2017-12-06] MEDS: LORAZEPAM INJ 2 MG/ML VIAL IV PRN (18:41)
[2017-12-06] MEDS: VANCOMYCIN 1 GM in IV NS 0.9% 250 ML IV SCH (19:12)
[2017-12-06 20:00] VITALS: BP 157/79
[2017-12-06] MEDS: INSULIN REGULAR, HUMAN 100 UNIT/ML 3 ML VIAL SQ PRN (23:40)
[2017-12-07] MEDS: MORPHINE SULFATE INJ 4 MG/ML DISP.SYRIN IV PRN ×6 (00:03→23:47)
[2017-12-07] MEDS: METOCLOPRAMIDE HCL 10 MG/2 ML VIAL IV SCH ×4 (02:37→20:35)
[2017-12-07 04:00] VITALS: BP 154/74
[2017-12-07] MEDS: VANCOMYCIN 1 GM in IV NS 0.9% 250 ML IV SCH ×2 (06:06→15:50)
[2017-12-07] MEDS: BLOOD SUGAR DIAGNOSTIC 1 EACH STRIP IN SCH ×4 (06:21→23:45)
[2017-12-07] MEDS: INSULIN REGULAR, HUMAN 100 UNIT/ML 3 ML VIAL SQ PRN (06:29)
[2017-12-07 06:44] LABS: CALCIUM, SERUM 8.7 mg/dL (8.5-10.1); CARBON DIOXIDE 26 mmol/L (21-32); CHLORIDE 99 mmol/L (98-107); CREATININE 0.8 mg/dL (0.6-1.3); GLUCOSE 106 mg/dL (74-106); INR 0.94 (0.87-1.13); PHOSPHORUS 3.8 mg/dL (2.5-4.9); POTASSIUM 3.9 mmol/L (3.5-5.1); SODIUM SERUM 133 mmol/L (136-145); UREA NITROGEN, BLOOD 11 mg/dL (7-18)
[2017-12-07 08:00] VITALS: BP 153/82
[2017-12-07] MEDS: MEROPENEM 1 G in IV NS 0.9% 100 ML IV SCH ×3 (08:02→23:38)
[2017-12-07] MEDS: PANTOPRAZOLE 40 MG VIAL IV SCH ×2 (08:02→17:40)
--- NOTE | 2017-12-07 08:10 | NUR ---
RN NOTE PT OUT OF UNIT FOR CT GUIDED ABSCESS DRAINAGE.
[2017-12-07] MEDS ORDERED: FENTANYL PF 250MCG/5ML AMPUL IV ONE (08:30)
[2017-12-07] MEDS ORDERED: NALOXONE PREFILLED SYRINGE 2 MG/2 ML SYRINGE IV ONE (08:30)
[2017-12-07] MEDS ORDERED: MIDAZOLAM HCL 5MG/ML VIAL 25 MG/5 ML VIAL IV ONE (08:30)
[2017-12-07] MEDS: ENOXAPARIN SODIUM 40 MG/0.4 ML DISP.SYRIN SQ SCH (09:00)
[2017-12-07 10:00] VITALS: BP 150/79
[2017-12-07] MEDS ORDERED: TPN BAG #12 IV PRN ×4 (10:00)
--- NOTE | 2017-12-07 10:04 | NUR ---
RN NOTE PT RETURNED TO UNIT FROM CT GUIDED DRAINAGE, R ABD ACCORDION DRAIN IS PRESENT ALONG WITH OTHER TWO OLD SJ DRAINS. PT CO PAIN 02/03, ASKING FOR PAIN MEDICINE AND WATER. WILL FOLLOW UP WITH MD. SAFETY MEASURES IMPLEMENTED, SITTER AT BEDSIDE.
[2017-12-07 10:25] LABS: BASOPHILS % (AUTO) 0.2 % (0.0-2.0); EOSINOPHILS % (AUTO) 2.3 % (0.0-6.0); HEMATOCRIT 29 % (39-51); HEMOGLOBIN 9.2 g/dL (13.5-17.5); LYMPHOCYTES # (AUTO) 0.9 /CMM (0.8-4.8); LYMPHOCYTES % (AUTO) 4.6 % (20.0-44.0); MEAN CORPUSCULAR HGB CONC 32 g/dl (31.0-36.0); MEAN CORPUSCULAR VOLUME 81 fL (80-96); MONOCYTES # (AUTO) 0.9 /CMM (0.1-1.30); MONOCYTES % (AUTO) 4.6 % (2.0-12.0); NEUTROPHILS % (AUTO) 88.3 % (43.0-81.0); RDW COEFFICIENT OF VARIATION 18.5 (11.5-15.0); RED BLOOD CELL COUNT(AUTO) 3.56 MIL/uL (4.5-6.0); WHITE BLOOD COUNT (AUTO) 20.4 K/uL (4.3-11.0)
[2017-12-07 10:35] LABS: PLATELET COUNT (AUTO) 1051 /CMM (150-450)
[2017-12-07] MEDS: VALPROATE 500 MG in IV D5W 100 ML IV SCH ×2 (10:55→20:35)
[2017-12-07] MEDS ORDERED: TPN BAG #13 IV PRN ×2 (11:00)
[2017-12-07] MEDS ORDERED: MORPHINE SULFATE INJ 4 MG/ML DISP.SYRIN IV ONE (11:00)
[2017-12-07 11:42] LABS: EOSINOPHILS % (MANUAL) 1 % (0-4); LYMPHOCYTES % (MANUAL) 6 % (16-48); MONOCYTES % (MANUAL) 8 % (0-11.0); NEUTROPHILS % (MANUAL) 85 (42-76)
[2017-12-07 14:03] LABS: BASOPHILS % (AUTO) 0.2 % (0.0-2.0); EOSINOPHILS % (AUTO) 0.9 % (0.0-6.0); HEMATOCRIT 27 % (39-51); HEMOGLOBIN 9.1 g/dL (13.5-17.5); LYMPHOCYTES # (AUTO) 0.8 /CMM (0.8-4.8); LYMPHOCYTES % (AUTO) 4.2 % (20.0-44.0); MEAN CORPUSCULAR HGB CONC 33 g/dl (31.0-36.0); MEAN CORPUSCULAR VOLUME 79 fL (80-96); MONOCYTES # (AUTO) 0.7 /CMM (0.1-1.30); MONOCYTES % (AUTO) 3.5 % (2.0-12.0); NEUTROPHILS # (AUTO) 17.2 /CMM (1.8-8.9); NEUTROPHILS % (AUTO) 91.2 % (43.0-81.0); RDW COEFFICIENT OF VARIATION 18.9 (11.5-15.0); RED BLOOD CELL COUNT(AUTO) 3.46 MIL/uL (4.5-6.0); WHITE BLOOD COUNT (AUTO) 18.9 K/uL (4.3-11.0)
[2017-12-07 14:06] LABS: PLATELET COUNT (AUTO) 1030 /CMM (150-450)
[2017-12-07 14:50] LABS: BAND % (MANUAL) 1 % (0.0-5.0); EOSINOPHILS % (MANUAL) 3 % (0-4); LYMPHOCYTES % (MANUAL) 1 % (16-48); MONOCYTES % (MANUAL) 9 % (0-11.0); NEUTROPHILS % (MANUAL) 86 (42-76)
--- NOTE | 2017-12-07 15:00 | NUR ---
RN NOTE MD NOTIFIED ABOUT CBC RESULTS. NO NEW ORDERS AT THIS TIME.
[2017-12-07] MEDS: HYDROCODONE/APAP 5/325MG 1 EACH TABLET PO PRN ×2 (15:49→20:35)
[2017-12-07 16:00] VITALS: BP 151/78
[2017-12-07] MEDS: FLUCONAZOLE IN NS 400 MG in PREMIX 1 EA IV SCH ×2 (17:40)
[2017-12-07] MEDS: IV D5/0.45 NACL 1,000 ML IV PRN (17:49)
[2017-12-07 20:00] VITALS: BP 148/69
--- NOTE | 2017-12-07 21:05 | NUR ---
MS RN NOTES RECEIVED PT ON BED. A/O X2. ON ROOM AIR SATURATING WELL. ON NG TUBE IN PLACED VERIFIED BY THE RN. NGT INTERMITTENT SUCTIONING. ON TPN @75CC ON LANA PICCLINE. NO SIGN OF REDNESS OR PAIN NOTED AT THIS TIME. D5 1/2 NS @30CC/HR RUNNING WELL. HEAD OF BED ELEVATED. SIDE RAILS UP. DANIEL LIGHT IS PLACED WITHIN REACH. WILL CONTINUE TO MONITOR PT CLOSELY.
[2017-12-07] MEDS: ZOLPIDEM TARTRATE 5 MG TABLET PO PRN (21:13)
[2017-12-08] MEDS: METOCLOPRAMIDE HCL 10 MG/2 ML VIAL IV SCH ×4 (02:57→20:19)
[2017-12-08] MEDS: VANCOMYCIN 1 GM in IV NS 0.9% 250 ML IV SCH ×2 (03:00→15:40)
[2017-12-08 04:00] VITALS: BP 149/77
[2017-12-08] MEDS: MORPHINE SULFATE INJ 4 MG/ML DISP.SYRIN IV PRN ×4 (04:28→20:20)
[2017-12-08] MEDS: BLOOD SUGAR DIAGNOSTIC 1 EACH STRIP IN SCH ×4 (05:08→23:26)
--- NOTE | 2017-12-08 06:33 | NUR ---
MS RN NOTES NO ACUTE CHANGES NOTED DURING THE SHIFT. WILL ENDORSE TO THE AM NURSE FOR WARNER.
[2017-12-08 06:44] LABS: CALCIUM, SERUM 8.7 mg/dL (8.5-10.1); CARBON DIOXIDE 25 mmol/L (21-32); CHLORIDE 97 mmol/L (98-107); CREATININE 0.8 mg/dL (0.6-1.3); GLUCOSE 113 mg/dL (74-106); PHOSPHORUS 3.8 mg/dL (2.5-4.9); SODIUM SERUM 130 mmol/L (136-145); UREA NITROGEN, BLOOD 11 mg/dL (7-18)
[2017-12-08] MEDS: MEROPENEM 1 G in IV NS 0.9% 100 ML IV SCH ×3 (09:09→23:26)
[2017-12-08] MEDS: PANTOPRAZOLE 40 MG VIAL IV SCH ×2 (09:10→16:59)
[2017-12-08] MEDS: ENOXAPARIN SODIUM 40 MG/0.4 ML DISP.SYRIN SQ SCH (09:10)
--- NOTE | 2017-12-08 10:15 | NUR ---
MS RN NOTES RECEIVED PT ON BED. A/O X2. RESPIRATION EVEN AND UNLABORED , ON RA, NO SOB NOTED , PT IS NPO NG TUBE TO LIS, WITH GREENISH LIQUIDLY STOMACH JUICE , ON TPN @75CC ON R UA PICC LINE. NO SIGN OF REDNESS OR PAIN NOTED AT THIS TIME. D5 1/2 NS @30CC/HR RUNNING WELL VIA R UPPER ARM PICC LINE , 3 DRAINS TO ABDOMEN IN PLACED , HEAD OF BED ELEVATED. SIDE RAILS UP. CALL LIGHT WITHIN EASY REACH, WILL CONTINUE TO MONITOR PT CLOSELY.
[2017-12-08] MEDS: VALPROATE 500 MG in IV D5W 100 ML IV SCH ×2 (10:18→20:20)
[2017-12-08] MEDS ORDERED: TPN BAG #15 IV PRN ×2 (10:30)
[2017-12-08] MEDS ORDERED: TPN BAG #14 IV PRN ×4 (10:30)
--- NOTE | 2017-12-08 11:00 | NUR ---
RN NOTE NGT D/RAMON PER MD ORDER .
[2017-12-08 11:46] LABS: EOSINOPHILS % (AUTO) 0.3 % (0.0-6.0); HEMATOCRIT 26 % (39-51); HEMOGLOBIN 8.3 g/dL (13.5-17.5); LYMPHOCYTES # (AUTO) 0.6 /CMM (0.8-4.8); LYMPHOCYTES % (AUTO) 2.8 % (20.0-44.0); MEAN CORPUSCULAR HGB CONC 33 g/dl (31.0-36.0); MEAN CORPUSCULAR VOLUME 81 fL (80-96); MONOCYTES # (AUTO) 0.9 /CMM (0.1-1.30); MONOCYTES % (AUTO) 4.2 % (2.0-12.0); NEUTROPHILS % (AUTO) 92.7 % (43.0-81.0); RDW COEFFICIENT OF VARIATION 18.3 (11.5-15.0); RED BLOOD CELL COUNT(AUTO) 3.17 MIL/uL (4.5-6.0); WHITE BLOOD COUNT (AUTO) 20.5 K/uL (4.3-11.0)
[2017-12-08 11:50] LABS: PLATELET COUNT (AUTO) 1155 /CMM (150-450)
--- NOTE | 2017-12-08 12:00 | NUR ---
RN NOTES TOLERATING CLEAR LIQUID DIET WELL , NO DISTRESS NOTED .
[2017-12-08 12:07] LABS: EOSINOPHILS % (MANUAL) 1 % (0-4); LYMPHOCYTES % (MANUAL) 4 % (16-48); MONOCYTES % (MANUAL) 4 % (0-11.0); NEUTROPHILS % (MANUAL) 91 (42-76)
[2017-12-08] MEDS: LORAZEPAM INJ 2 MG/ML VIAL IV PRN (12:29)
[2017-12-08] MEDS: FLUCONAZOLE IN NS 400 MG in PREMIX 1 EA IV SCH ×2 (15:01)
[2017-12-08 16:00] VITALS: BP 108/51
--- NOTE | 2017-12-08 18:00 | NUR ---
RN NOTES PT REFUSED DINNER AT THIS TIME , VSS STABLE , TPN AT 45CC/HR RUNNING VIA R UPPER ARM PICC LINE , D51/2NS AT 30CC/HR RUNNING VIA R WRIST IV SITE , NO COMPLICATION NOTED, SR UP x3, CALL LIGHT WITHIN EASY REACH, WILL ENDOSE TO PROTEOMICS SCIENTIST NURSE FOR WARNER .
--- NOTE | 2017-12-08 19:15 | NUR ---
RN M/S NOTE PATIENT IS AOX2, WITH PERIODS OF CONFUSION, SPEECH CLEAR, NO S/SX OF RESPIRATORY DISTRESS ON ROOM AIR, ABD INCISION COVERED, SJ DRAIN X2 WITH SEROSANGUINEOUS DRAINAGE, ON CLEAR LIQUID DIET, LANA PICC PATENT FLUSHING WELL WITH TPN, AND D5NS AT 50ML/HR. NO S/SX OF HYPO/HYPERGLYCEMIA, CALL LIGHT WITHIN REACH, BED IN LOW LOCKED POSITION, SAFETY MAINTAINED AT ALL TIMES, WILL CONTINUE TO MONITOR FOR ANY CHANGES IN CONDITION.
[2017-12-08 20:00] VITALS: BP 142/71
[2017-12-09] MEDS: MORPHINE SULFATE INJ 4 MG/ML DISP.SYRIN IV PRN ×5 (01:05→22:00)
--- NOTE | 2017-12-09 01:45 | NUR ---
MS/RN NOTES PT RECEIVED FROM RUDDY FERRELL FOR WARNER. PT IS ASLEEP, EASILY AROUSABLE TO NAME. ON ROOM AIR, BREATHING EVEN AND UNLABORED. NO S/S OF SOB, PAIN OR DISTRESS AT THIS TIME. BREATHING IS EVEN AND UNLABORED. SJ DRAIN TO LEFT, RIGHT AND MEDIAL ABDOMEN NOTED. LANA PICC LINE PATENT AND INTACT RUNNING D5 1/2 NS AT 30CC/HR AND TPN AT 75ML/HR ORDERED. IV TO LEFT WRIST PATENT AND INTACT. BED IN LOW/LOCKED POSITION WITH CALL LIGHT IN REACH. SIDE RAILS UPX2 WILL CONTINUE TO MONITOR
[2017-12-09] MEDS: METOCLOPRAMIDE HCL 10 MG/2 ML VIAL IV SCH ×4 (01:53→21:59)
[2017-12-09 04:00] VITALS: BP 130/57
[2017-12-09] MEDS: VANCOMYCIN 1 GM in IV NS 0.9% 250 ML IV SCH ×2 (04:15→17:30)
[2017-12-09] MEDS: BLOOD SUGAR DIAGNOSTIC 1 EACH STRIP IN SCH ×3 (06:43→18:32)
[2017-12-09 06:53] LABS: CALCIUM, SERUM 9.3 mg/dL (8.5-10.1); CARBON DIOXIDE 24 mmol/L (21-32); CHLORIDE 97 mmol/L (98-107); CREATININE 0.9 mg/dL (0.6-1.3); GLUCOSE 101 mg/dL (74-106); MAGNESIUM 2.1 mg/dL (1.8-2.4); PHOSPHORUS 3.5 mg/dL (2.5-4.9); POTASSIUM 4.3 mmol/L (3.5-5.1); SODIUM SERUM 132 mmol/L (136-145); UREA NITROGEN, BLOOD 11 mg/dL (7-18)
--- NOTE | 2017-12-09 07:05 | NUR ---
MS/RN CLOSING NOTES PT RESTING COMFORTABLY IN BED. EASILY AROUSABLE TO NAME. ON ROOM AIR, BREATHING EVEN AND UNLABORED. NO S/S OF SOB OR PAIN AT THIS TIME. MEDIAL ABDOMINAL INCISION NOTED, MEDIAL DRESSING CHANGED DUE TO IT BEING SOILED. SJ DRAIN TO LEFT (SEROUS/CLEAR YELLOW OUTPUT), MEDIAL (CLOUDY YELLOW OUTPUT) AND RIGHT (CLOUDY YELLOW OUTPUT) ABDOMEN NOTED WITH MINIMAL OUTPUT IN EACH. LANA PICC PATENT AND INTACT RUNNING TPN AND IVF ORDERED. IV TO LEFT WRIST PATENTAND INTACT. BED IN LOW/LOCKED POSITION WITH CALL LIGHT IN REACH. SIDE RAILS UPX3 WITH BED ALARM ON FOR SAFETY. ALL NEEDS MET. WILL ENDORSE TO DAY SHIFT RN WARNER.
[2017-12-09 08:00] VITALS: BP 142/75
--- NOTE | 2017-12-09 08:00 | NUR ---
MS1/RN AM SHIFT INITIAL NOTES RECEIVED PT AWAKE SITTING IN BED. PT A/O X 2 CONFUSED BUT MORE ALERT SINCE THE LAST TIME I TOOK CARE OF HIM. NO ACUTE CHANGE OF CONDITION NOTED, ON ROOM AIR SATURATING @ 97%, RESPIRATIONS EVEN & UNLABORED. PICC LINE WITH ON GOING TPN @ 75CC/HR AND D51/2 NS @ 30CC/HR, NO S/S OF INFECTION. (2) SJ INTACT NOTED WITH MINIMAL OUTPUT, WELL ABDOMINAL DRAIN. PT IS COMFORTABLE AT THIS TIME. CL WITHIN REACHED AND SAFETY MAINTAINED. ON GOING MONITORING.
[2017-12-09] MEDS: ENOXAPARIN SODIUM 40 MG/0.4 ML DISP.SYRIN SQ SCH (09:00)
[2017-12-09] MEDS: VALPROATE 500 MG in IV D5W 100 ML IV SCH ×2 (09:41→22:01)
[2017-12-09] MEDS: PANTOPRAZOLE 40 MG VIAL IV SCH ×2 (09:41→18:31)
[2017-12-09] MEDS: MEROPENEM 1 G in IV NS 0.9% 100 ML IV SCH ×2 (09:41→16:28)
[2017-12-09] MEDS ORDERED: TPN BAG #16 IV PRN ×4 (11:30)
[2017-12-09 12:00] VITALS: BP 123/66
--- NOTE | 2017-12-09 12:00 | NUR ---
MS1/RN NOON ROUNDS NO CHANGE OF CONDITION.
[2017-12-09 12:12] VITALS: BP 123/66
[2017-12-09 13:52] LABS: BASOPHILS # (AUTO) 0.1 /CMM (0.0-0.2); BASOPHILS % (AUTO) 0.5 % (0.0-2.0); EOSINOPHILS % (AUTO) 1.2 % (0.0-6.0); HEMATOCRIT 29 % (39-51); LYMPHOCYTES % (AUTO) 6.1 % (20.0-44.0); MEAN CORPUSCULAR HGB CONC 32 g/dl (31.0-36.0); MEAN CORPUSCULAR VOLUME 82 fL (80-96); MONOCYTES # (AUTO) 0.9 /CMM (0.1-1.30); MONOCYTES % (AUTO) 5.4 % (2.0-12.0); NEUTROPHILS % (AUTO) 86.8 % (43.0-81.0); RDW COEFFICIENT OF VARIATION 19.1 (11.5-15.0); RED BLOOD CELL COUNT(AUTO) 3.49 MIL/uL (4.5-6.0); WHITE BLOOD COUNT (AUTO) 16.2 K/uL (4.3-11.0)
[2017-12-09 14:03] LABS: PLATELET COUNT (AUTO) 1337 /CMM (150-450)
[2017-12-09 15:03] LABS: BAND % (MANUAL) 3 % (0.0-5.0); LYMPHOCYTES % (MANUAL) 7 % (16-48); MONOCYTES % (MANUAL) 5 % (0-11.0); NEUTROPHILS % (MANUAL) 85 (42-76)
[2017-12-09 16:00] VITALS: BP 117/57
[2017-12-09] MEDS: FLUCONAZOLE IN NS 400 MG in PREMIX 1 EA IV SCH ×2 (18:30)
[2017-12-09 20:00] VITALS: BP 155/75
--- NOTE | 2017-12-09 20:00 | NUR ---
MS1/RN AM SHIFT END NOTES ALL NEEDS MET. NO ACUTE CHANGE OF CONDITION NOTED DURING THE SHIFT, PT ENDORSED TO PM NURSE TO CONTINUE CARE. CL WITHIN REACHED AND SAFETY MAINTAINED.
[2017-12-09] MEDS: IV D5/0.45 NACL 1,000 ML IV PRN (21:59)
[2017-12-09] MEDS: ZOLPIDEM TARTRATE 5 MG TABLET PO PRN (22:00)
[2017-12-10] VITALS: BP 138/64
[2017-12-10] MEDS: METOCLOPRAMIDE HCL 10 MG/2 ML VIAL IV SCH ×4 (01:29→20:16)
[2017-12-10] MEDS: MEROPENEM 1 G in IV NS 0.9% 100 ML IV SCH ×4 (01:29→23:53)
[2017-12-10] MEDS: LORAZEPAM INJ 2 MG/ML VIAL IV PRN (01:29)
[2017-12-10] MEDS: BLOOD SUGAR DIAGNOSTIC 1 EACH STRIP IN SCH ×5 (01:35→23:53)
[2017-12-10 04:00] VITALS: BP 135/67
[2017-12-10] MEDS: VANCOMYCIN 1 GM in IV NS 0.9% 250 ML IV SCH (05:30)
[2017-12-10 06:31] LABS: BASOPHILS # (AUTO) 0.1 /CMM (0.0-0.2); BASOPHILS % (AUTO) 0.6 % (0.0-2.0); EOSINOPHILS % (AUTO) 0.7 % (0.0-6.0); HEMATOCRIT 26 % (39-51); HEMOGLOBIN 8.3 g/dL (13.5-17.5); LYMPHOCYTES # (AUTO) 0.6 /CMM (0.8-4.8); LYMPHOCYTES % (AUTO) 5.3 % (20.0-44.0); MEAN CORPUSCULAR HGB CONC 33 g/dl (31.0-36.0); MEAN CORPUSCULAR VOLUME 80 fL (80-96); MONOCYTES # (AUTO) 1.1 /CMM (0.1-1.30); MONOCYTES % (AUTO) 8.6 % (2.0-12.0); NEUTROPHILS # (AUTO) 10.5 /CMM (1.8-8.9); NEUTROPHILS % (AUTO) 84.8 % (43.0-81.0); RED BLOOD CELL COUNT(AUTO) 3.18 MIL/uL (4.5-6.0); WHITE BLOOD COUNT (AUTO) 12.3 K/uL (4.3-11.0)
[2017-12-10 07:00] LABS: CALCIUM, SERUM 8.9 mg/dL (8.5-10.1); CARBON DIOXIDE 27 mmol/L (21-32); CHLORIDE 98 mmol/L (98-107); CREATININE 0.9 mg/dL (0.6-1.3); GLUCOSE 105 mg/dL (74-106); PHOSPHORUS 3.9 mg/dL (2.5-4.9); POTASSIUM 4.5 mmol/L (3.5-5.1); SODIUM SERUM 133 mmol/L (136-145); UREA NITROGEN, BLOOD 12 mg/dL (7-18)
--- NOTE | 2017-12-10 07:26 | NUR ---
MS/RN OPENING NOTES PATIENT RECEIVED AWAKE IN BED IN NO ACUTE SIGNS OF DISTRESS. A/O X2-3, FOLLOWS COMMANDS BUT NOTED WITH CONFUSION. ON ROOM AIR, BREATHING EVEN AND UNLABORED.SJ DRAIN TO LEFT AND RIGHT OF ABDOMEN AND ACCORDION DRAIN TO RIGHT LATERAL SIDE OF ABDOMEN NOTED ALL IN PLACE. LANA PICC LINE PATENT AND INTACT RUNNING D5 1/2 NS AT 30CC/HR AND TPN #16 RUNNING AT PRESCRIBED DOSE. PT ALSO HAS IV ACCESS ON LEFT WRIST PATENT AND INTACT. HOB ELEVATED. BED IN LOW/LOCKED POSITION WITH CALL LIGHT IN REACH. SIDE RAILS UPX2. ALL SAFETY MEASURES MAINTAINED. WILL CONTINUE TO MONITOR PT ACCORDINGLY
--- NOTE | 2017-12-10 07:27 | NUR ---
RN CLOSING NOTES PATIENT WITH NO ACUTE DISTRESS OBSERVED OVERNIGHT. OBSERVED TO BE MORE ALERT AND ORIENTED. ABLE TO FOLLOW COMMANDS. MEDICATED FOR ABDOMINAL PAIN NEEDED WITH GOOD EFFECT. TPN #16 INFUSING ORDERED. ON IVF AND ATB ORDERED. WITH DRAINS NOTED FOLLOWS: RIGHT LATERAL ACCORDION DRAIN WITH 20cc WHITISH-BROWN, PURULENT DRAINAGE. RIGHT SJ DRAIN WITH 5cc WHITISH, PURULENT DRAINAGE. LEFT SJ DRAIN WITH 10cc YELLOWISH, SEROUS DRAINAGE. ASSISTED WITH ADLS. KEPT CLEAN AND DRY. SAFETY AND COMFORT ENSURED. BED ALARM IN PLACE. CALL LIGHT IN REACH. ENDORSED ACCORDINGLY FOR CONTINUITY OF CARE.
[2017-12-10 07:48] LABS: PLATELET COUNT (AUTO) 1292 /CMM (150-450)
[2017-12-10 08:00] VITALS: BP 148/74
[2017-12-10] MEDS: PANTOPRAZOLE 40 MG VIAL IV SCH ×2 (09:37→16:40)
[2017-12-10] MEDS: VALPROATE 500 MG in IV D5W 100 ML IV SCH ×2 (09:37→20:16)
[2017-12-10] MEDS: ENOXAPARIN SODIUM 40 MG/0.4 ML DISP.SYRIN SQ SCH (09:38)
[2017-12-10] MEDS: MORPHINE SULFATE INJ 4 MG/ML DISP.SYRIN IV PRN ×3 (09:50→21:22)
[2017-12-10 10:49] LABS: EOSINOPHILS % (MANUAL) 1 % (0-4); LYMPHOCYTES % (MANUAL) 3 % (16-48); MONOCYTES % (MANUAL) 8 % (0-11.0); NEUTROPHILS % (MANUAL) 88 (42-76)
--- NOTE | 2017-12-10 12:40 | NUR ---
RN NOTES DR SALAMANCA CAME AND REMOVED LEFT SIDE SJ DRAIN WITH SMALL AMOUNT OF SEROUS DRAINAGE NOTED AT COLLECTION VALVE, SAME REMOVED STAPLERS ON MID ABDOMINAL INCISION, NO BLEEDING NOTED. HE ORDERED ALSO TO CLEAN INCISION SITES WITH WET TO DRY DRESSING DAILY AND PRN SOILING. DR SALAMANCA ALSO ORDER TO ADVANCE DIET TOLERATED. ORDERS CARRIED OUT. WILL CONTINUE TO MONITOR.
[2017-12-10] MEDS: FLUCONAZOLE IN NS 400 MG in PREMIX 1 EA IV SCH ×2 (15:11)
[2017-12-10 16:00] VITALS: BP 121/56
--- NOTE | 2017-12-10 16:56 | NUR ---
RN NOTES PATIENT COMPLAINED OF ACHING AND THROBBING PAIN WITH SCALE OF 8/10 AT MID ABDOMINAL INCISION SITE. PRN MORPHINE 4MG GIVEN IVP. WILL CONTINUE TO MONITOR.
--- NOTE | 2017-12-10 18:31 | NUR ---
RN CLOSING NOTES PATIENT AWAKE IN BED WATCHING TV. HOB ELEVATED. A/O X 3. VERBALLY RESPONSIVE AND ABLE TO MAKE NEEDS KNOWN. ON ROOM AIR, BREATHING EVEN WITH NO SOB NOTED. SJ AND ACCORDION DRAIN TO RIGHT SIDE OF ABDOMEN IN PLACE DRAINING THICK WHITISH SECRETIONS. LANA DOUBLE LUMEN PICC LINE PATENT AND INTACT WITH D5 1/2 NS @ 30CC/HR AND TPN #16 RUNNING @ PRESCRIBED DOSE. PT ALSO HAS IV ACCESS ON LEFT WRIST PATENT AND INTACT, FLUSHES EASILY. ALL SAFETY MEASURES MAINTAINED. BED IN LOW/LOCKED POSITION WITH SIDE RAILS UPX2. CALL LIGHT IN REACH. ALL NEEDS AND CARE PROVIDED WELL. WILL ENDORSE TO DIRECTOR CHECK NURSE FOR WARNER.
--- NOTE | 2017-12-10 19:20 | NUR ---
RN M/S NOTE PATIENT IS AOX3, WITH PERIODS OF CONFUSION, SPEECH CLEAR, NO S/SX OF RESPIRATORY DISTRESS ON ROOM AIR, ABD INCISION COVERED DEVAUGHN REMOVED THIS AM, SJ DRAIN ON RIGHT SIDE WITH WHITE DRAINAGE, AND MID ABDOMEN DRAIN WITH WHITE DRAINAGE, ON FULL LIQUID DIET, LANA PICC PATENT FLUSHING WELL WITH TPN, AND D5NS AT 30ML/HR. L WRIST #22G SL PATENT FLUSHING WELL, SITES CDI. URINAL AT BEDSIDE. CALL LIGHT WITHIN REACH, BED IN LOW LOCKED POSITION, SAFETY MAINTAINED AT ALL TIMES, WILL CONTINUE TO MONITOR FOR ANY CHANGES IN CONDITION.
[2017-12-10 20:00] VITALS: BP 135/77
[2017-12-10] MEDS ORDERED: TPN BAG #17 IV PRN (20:00)
[2017-12-10] MEDS: ZOLPIDEM TARTRATE 5 MG TABLET PO PRN (21:22)
[2017-12-11] MEDS: METOCLOPRAMIDE HCL 10 MG/2 ML VIAL IV SCH ×4 (02:52→20:03)
[2017-12-11 04:00] VITALS: BP 130/56
[2017-12-11] MEDS: MORPHINE SULFATE INJ 4 MG/ML DISP.SYRIN IV PRN ×5 (04:19→20:59)
[2017-12-11] MEDS: BLOOD SUGAR DIAGNOSTIC 1 EACH STRIP IN SCH ×4 (05:50→23:33)
[2017-12-11 06:40] LABS: BASOPHILS # (AUTO) 0.1 /CMM (0.0-0.2); BASOPHILS % (AUTO) 1.3 % (0.0-2.0); EOSINOPHILS % (AUTO) 1.1 % (0.0-6.0); HEMATOCRIT 27 % (39-51); HEMOGLOBIN 8.7 g/dL (13.5-17.5); LYMPHOCYTES # (AUTO) 0.8 /CMM (0.8-4.8); LYMPHOCYTES % (AUTO) 7.9 % (20.0-44.0); MEAN CORPUSCULAR HGB CONC 32 g/dl (31.0-36.0); MEAN CORPUSCULAR VOLUME 80 fL (80-96); MONOCYTES # (AUTO) 1.1 /CMM (0.1-1.30); MONOCYTES % (AUTO) 10.5 % (2.0-12.0); NEUTROPHILS # (AUTO) 8.5 /CMM (1.8-8.9); NEUTROPHILS % (AUTO) 79.2 % (43.0-81.0); RDW COEFFICIENT OF VARIATION 19.1 (11.5-15.0); RED BLOOD CELL COUNT(AUTO) 3.34 MIL/uL (4.5-6.0); WHITE BLOOD COUNT (AUTO) 10.7 K/uL (4.3-11.0)
[2017-12-11 07:16] LABS: CALCIUM, SERUM 9.4 mg/dL (8.5-10.1); CARBON DIOXIDE 25 mmol/L (21-32); CHLORIDE 100 mmol/L (98-107); CREATININE 0.9 mg/dL (0.6-1.3); GLUCOSE 103 mg/dL (74-106); MAGNESIUM 2.2 mg/dL (1.8-2.4); PHOSPHORUS 3.9 mg/dL (2.5-4.9); POTASSIUM 4.4 mmol/L (3.5-5.1); SODIUM SERUM 134 mmol/L (136-145); UREA NITROGEN, BLOOD 12 mg/dL (7-18)
--- NOTE | 2017-12-11 07:30 | NUR ---
RN M/S INITIAL NOTES: RECEIVED PT IN BED AWAKE. A&O X2-3 WITH SOME CONFUSION NOTED. PT VERBAL. ON ROOM AIR, O2 SATURATION 95%. NO SOB AT THIS TIME. PT C/O 8/10 PAIN TO ABDOMEN, WILL GIVE PRN MORPHINE ORDERED. PT AWARE. ABDOMINAL DRESSING IN PLACE. R SJ DRAIN IN PLACE WITH MINIMAL DRAINAGE NOTED AT THIS TIME. WILL CONTINUE TO MONITOR. BED ALARM ON, SIDE RAILS UP ORDERED FOR FALL PREVENTION. TPN RUNNING AT 60ML/HR TO LANA PICC. D5 1/2NS RUNNING AT 45ML/HR WELL. L WRIST IV IN PLACE, #[id number]. PATENT AND FLUSHES WELL. PER ORDER, WILL D/C TPN AT 0900 WHEN BAG IS COMPLETE AND ADVANCE CURRENT DIET OF FULL LIQUIDS TOLERATED. WILL CONTINUE TO MONITOR.
[2017-12-11 08:00] VITALS: BP 122/57
[2017-12-11] MEDS: PANTOPRAZOLE 40 MG VIAL IV SCH ×2 (08:36→16:56)
[2017-12-11] MEDS: MEROPENEM 1 G in IV NS 0.9% 100 ML IV SCH ×3 (08:36→23:33)
[2017-12-11] MEDS: ENOXAPARIN SODIUM 40 MG/0.4 ML DISP.SYRIN SQ SCH (08:37)
[2017-12-11 08:44] LABS: PLATELET COUNT (AUTO) 1030 /CMM (150-450)
[2017-12-11] MEDS ORDERED: TPN BAG #18 IV PRN ×4 (09:00)
[2017-12-11 09:13] LABS: LYMPHOCYTES % (MANUAL) 9 % (16-48); NEUTROPHILS % (MANUAL) 80 (42-76)
[2017-12-11 09:14] LABS: EOSINOPHILS % (MANUAL) 1 % (0-4); MONOCYTES % (MANUAL) 10 % (0-11.0)
[2017-12-11] MEDS: VALPROATE 500 MG in IV D5W 100 ML IV SCH ×2 (09:55→21:03)
[2017-12-11] MEDS: IV D5/0.45 NACL 1,000 ML IV PRN (11:45)
[2017-12-11 12:00] VITALS: BP 142/71
--- NOTE | 2017-12-11 12:30 | NUR ---
RN M/S NOTE: PT REFUSED BREAKFAST AND REFUSING LUNCH AT THIS TIME. ID DOCTOR IN, MADE AWARE. CONTINUE WITH D5 1/2NS FLUIDS ORDERED. BS CHECKS WITHIN NORMAL RANGE. WILL ENDORSE TO PM SHIFT TO ADVANCE DIET TOMORROW TOLERATED, PER MD ORDERS. SURGICAL DRAIN IN PLACE, ABOUT 25CC RETURNED THIS SHIFT. PT REMAINS ON ROOM AIR, SATURATION 95-96%. NO SOB OR RESPIRATORY DISTRESS NOTED. PT MEDICATED FOR C/O ABD PAIN THROUGHOUT THE SHIFT. BED IN LOW LOCKED POSITION, CALL LIGHT WITHIN REACH. WILL ENDORSE TO PM SHIFT NURSE FOR CONTINUITY OF CARE.
[2017-12-11 16:00] VITALS: BP 144/76
[2017-12-11] MEDS: FLUCONAZOLE IN NS 400 MG in PREMIX 1 EA IV SCH ×2 (16:06)
--- NOTE | 2017-12-11 18:30 | NUR ---
RN M/S END NOTE: PT REMAINS AWAKE, ALERT WITH SOME CONFUSION. REMAINS ON ROOM AIR, O2 SATURATION AT 95%. MEDICATED WITH PRN MORPHINE Q4HRS ORDERED. VITAL SIGNS REMAIN STABLE. BED IN LOW LOCKED POSITION, CALL LIGHT WITHIN REACH. IV FLUIDS RUNNING ORDERED. WILL ENDORSE TO PM SHIFT NURSE FOR CONTINUITY OF CARE.
[2017-12-11] MEDS: HYDROCODONE/APAP 5/325MG 1 EACH TABLET PO PRN ×2 (19:59→23:32)
[2017-12-11 20:00] VITALS: BP 147/71
--- NOTE | 2017-12-11 20:00 | NUR ---
PRN NORCO: PT C/O ABDOMINAL PAIN REQUESTING FOR PAIN MEDICATION MORPHINE BUT ITS NOT DUE, SO HE DECIDED TO GET THE NORCO. PRN NORCO 5/325 MG TAB PO ADMINISTERED TO THE PT THIS TIME, PS 7/10. WILL CONTINUE TO MONITOR AND REASSESS
--- NOTE | 2017-12-11 21:02 | NUR ---
PRN MORPHINE: PT C/O 04/05 PAIN IN HIS ABDOMEN REQUESTING FOR HIS MORPHINE, PRN MORPHINE 4MG IVP ADMINISTERED TO THE PT AT THIS TIME, WILL CONTINUE TO MONITOR AND REASSESS
[2017-12-11] MEDS ORDERED: MIRTAZAPINE SOLUTAB 15 MG/UDTABLET TAB.RAPDIS PO SCH (22:00)
--- NOTE | 2017-12-11 23:32 | NUR ---
PRN NORCO: PT C/O 01/03 PAIN IN HIS ABDOMEN REQUESTING FOR NORCO, PRN NORCO 5/325 MG TAB PO ADMINISTERED AT THIS TIME, WILL COTNINEU TO MONITOR AND REASSESS
[2017-12-11] MEDS: INSULIN REGULAR, HUMAN 100 UNIT/ML 3 ML VIAL SQ PRN (23:39)
--- NOTE | 2017-12-11 23:40 | NUR ---
BS 101: BS 101, NO INSULIN COVERAGE GIVEN PER SLIDING SCALE
--- NOTE | 2017-12-12 01:03 | NUR ---
RN NOTES: WENT TO PT'S ROOM, BUT PT ASLEEP, APPEARS CALM AND COMFORTABLE, WILL MONITOR PT
--- NOTE | 2017-12-12 02:21 | NUR ---
RN NOTES: ASSIGNED RN WENT ON BREAK, AFTERWARDS WHEN RETURN, REPORTED BY WOOL GROWER KEAYNA THAT PT PULLED OUT HIS CENTRAL LINE, THIS HAPPENED AT 0130AM, TURNTABLE WORKER TRIED TO START NEW IV ACCESS BUT UNSUCCESSFUL, ACCU VEIN WAS USED AND STILL UNSUCCESSFUL. WILL TRY AGAIN TO START NEW LINE
[2017-12-12] MEDS: METOCLOPRAMIDE HCL 10 MG/2 ML VIAL IV SCH ×4 (02:44→20:29)
[2017-12-12] MEDS: MORPHINE SULFATE INJ 4 MG/ML DISP.SYRIN IV PRN (02:44)
--- NOTE | 2017-12-12 02:45 | NUR ---
PRN MORPHINE: PT C/O 04/05 ABDOMINAL PAIN REQUESTING FOR MORPHINE, PRN MORPHINE 4MG IVP ADMINISTERED AT THIS TIME, WILL CONTINUE TO MONITOR AND REASSESS ALSO LATE ADMINISTRATION OF REGLAN, PT PULLED OUT IV ACCESS AND REALLY HARD STICK, ONLY NOW THAT WAS SUCCESSFULLY OBTAINED NEW IV ACCESS. REGLAN ADMINISTERED AT THIS TIME.
[2017-12-12 04:00] VITALS: BP 120/56
--- NOTE | 2017-12-12 05:00 | NUR ---
SURGICAL INCISION CARE PERFORMED, CLEANSED WITH NS PAT DRY APPLIED WET TO DRY DRESSING, COVERED WITH ABD SECURED WITH TAPE.
--- NOTE | 2017-12-12 05:37 | NUR ---
RN NOTES: PT PULLED OUT IV ACCESS AGAIN, AND TRIED TO JUMPED OUT OF BED, RN AND OTHER STAFF CAME TO THE ROOM, APPLIED PRESSURED DRESSING, BATHE THE PT, CHANGED LINEN (COMPLETE). THERE IS AN ORDER FOR SITTER, INFORMED RN SUP AND LINE TESTER.
[2017-12-12] MEDS: BLOOD SUGAR DIAGNOSTIC 1 EACH STRIP IN SCH ×3 (05:41→17:52)
[2017-12-12] MEDS: INSULIN REGULAR, HUMAN 100 UNIT/ML 3 ML VIAL SQ PRN (05:41)
--- NOTE | 2017-12-12 05:41 | NUR ---
BS 112: BS 112, NO INSULIN COVERAGE GIVEN PER SLIDING SCALE
--- NOTE | 2017-12-12 05:52 | NUR ---
RN NOTES: TRIED INSERTING IV COUPLE OF TIMES, BUT UNSUCCESSFUL.
--- NOTE | 2017-12-12 05:59 | NUR ---
RN NOTES: MADE CEILING INSTALLER MD AWARE OF PT'S BEHAVIOR AND PULLING OUT OF IV ACCESS, NEEDS CENTRAL LINE INSERTION BECAUSE IV REINSERTION ATTEMPTS WERE UNSUCCESSFUL, AND PT ON DIFFERENT IV ATB AND HAS POOR ORAL INTAKE HE'S REFUSING TO EAT, NEEDS DEXTROSE/IVF. AWAITING FOR RESPONSE.
--- NOTE | 2017-12-12 06:08 | NUR ---
RN NOTES: PER WINDOWS [employer] ADMINISTRATOR MAINTENANCE OF WAY CLERK, OKAY FOR PICC LINE INSERTION
--- NOTE | 2017-12-12 06:10 | NUR ---
RN NOTES: TRANSFER PT TO ROOM 115-1, HE NEEDS A SITTER, ALL BELONGINGS SENT WITH PT UPON TRANSFER
--- NOTE | 2017-12-12 06:46 | NUR ---
RN CLOSING NOTES: PT IN BED, REMAINS A/O X2, CONFUSED AT TIMES, RESPIRATION EVEN AND UNLABORED, LAST PAIN MEDS ADMINISTERED AT 0300AM, SJ DRAIN AND ACCORDION DRAIN REMAINS IN PLACED, DRESSING C/D/I. ABDOMINAL DRESSING REMAINS C/D/I.NO IV ACCESS, TRIED MULTIPLE TIME, UNSUCCESSFUL EVEN WITH HELP OF ACCU VEIN, FOR PICC LINE INSERTION. NEEDS SITTER, ORDER IN THE CHART. VS REMAINS STABLE, NEEDS ATTENDED. SAFETY PRECAUTIONS FOR FALL REMAINS ENGAGED, CALL LIGHT IN REACH. WILL ENDORSE TO DAY RN FOR WARNER.
--- NOTE | 2017-12-12 07:30 | NUR ---
PT RECEIVED RESTING COMFORTABLY IN BED. NO S/S OR C/O PAIN OR DISTRESS NOTED. SIDE RAILS UP X2, CALL LIGHT LEFT WITHIN REACH. WILL CONTINUE PLAN OF CARE.
[2017-12-12] MEDS: ENOXAPARIN SODIUM 40 MG/0.4 ML DISP.SYRIN SQ SCH (08:50)
[2017-12-12] MEDS: HYDROCODONE/APAP 5/325MG 1 EACH TABLET PO PRN ×3 (09:22→20:29)
[2017-12-12] MEDS: PANTOPRAZOLE 40 MG VIAL IV SCH ×2 (09:28→16:14)
[2017-12-12] MEDS: MEROPENEM 1 G in IV NS 0.9% 100 ML IV SCH ×2 (09:29→15:06)
[2017-12-12] MEDS: VALPROATE 500 MG in IV D5W 100 ML IV SCH ×2 (10:47→20:29)
[2017-12-12 11:13] LABS: CALCIUM, SERUM 8.6 mg/dL (8.5-10.1); CARBON DIOXIDE 27 mmol/L (21-32); CHLORIDE 100 mmol/L (98-107); CREATININE 0.9 mg/dL (0.6-1.3); GLUCOSE 103 mg/dL (74-106); POTASSIUM 4.2 mmol/L (3.5-5.1); SODIUM SERUM 134 mmol/L (136-145); UREA NITROGEN, BLOOD 11 mg/dL (7-18)
[2017-12-12 11:47] LABS: BASOPHILS # (AUTO) 0.1 /CMM (0.0-0.2); BASOPHILS % (AUTO) 1.3 % (0.0-2.0); EOSINOPHILS % (AUTO) 1.9 % (0.0-6.0); HEMATOCRIT 23 % (39-51); HEMOGLOBIN 7.5 g/dL (13.5-17.5); LYMPHOCYTES # (AUTO) 0.6 /CMM (0.8-4.8); LYMPHOCYTES % (AUTO) 5.8 % (20.0-44.0); MEAN CORPUSCULAR HGB CONC 33 g/dl (31.0-36.0); MEAN CORPUSCULAR VOLUME 80 fL (80-96); MONOCYTES # (AUTO) 1.1 /CMM (0.1-1.30); MONOCYTES % (AUTO) 10.8 % (2.0-12.0); NEUTROPHILS # (AUTO) 8.1 /CMM (1.8-8.9); NEUTROPHILS % (AUTO) 80.2 % (43.0-81.0); RDW COEFFICIENT OF VARIATION 19.1 (11.5-15.0); RED BLOOD CELL COUNT(AUTO) 2.89 MIL/uL (4.5-6.0); WHITE BLOOD COUNT (AUTO) 10.1 K/uL (4.3-11.0)
[2017-12-12 12:02] LABS: PLATELET COUNT (AUTO) 1221 /CMM (150-450)
[2017-12-12 13:09] LABS: BAND % (MANUAL) 1 % (0.0-5.0); LYMPHOCYTES % (MANUAL) 2 % (16-48); MONOCYTES % (MANUAL) 6 % (0-11.0); NEUTROPHILS % (MANUAL) 91 (42-76)
[2017-12-12] MEDS: FLUCONAZOLE IN NS 400 MG in PREMIX 1 EA IV SCH ×2 (16:14)
[2017-12-12] MEDS: ENSURE CLEAR 237 ML LIQUID (MIX BERRY) PO SCH (17:52)
--- NOTE | 2017-12-12 18:31 | NUR ---
CHANGE OF SHIFT REPORT PT RESTING COMFORTABLY IN BED. NO S/S OR C/O PAIN OR DISTRESS NOTED. SIDE RAILS UP X2, CALL LIGHT LEFT WITHIN REACH. PT KEPT CLEAN, DRY, AND COMFORTABLE. NO SIGNIFICANT CHANGES SINCE PREVIOUS SHIFT. SJ AND ACCORDION DRAIN INTACT. WILL GIVE REPORT TO GERSON RN.
[2017-12-12 20:00] VITALS: BP 138/65
[2017-12-12] MEDS: ZOLPIDEM TARTRATE 5 MG TABLET PO PRN (22:11)
[2017-12-12] MEDS: MIRTAZAPINE SOLUTAB 15 MG/UDTABLET TAB.RAPDIS PO SCH (22:11)
--- NOTE | 2017-12-12 23:04 | NUR ---
MS RN NOTE TRANSFER CARE TO [facility] FOR CONTINUITY OF CARE.
--- NOTE | 2017-12-12 23:15 | NUR ---
RN NOTES TRANSFER OF PATIENT CARE TO MA.PT RESTING COMFORTABLY IN BED. NO S/S OR C/O PAIN OR DISTRESS NOTED AT THIS TIME.. SIDE RAILS UP X2, CALL LIGHT LEFT WITHIN REACH. PT IS CLEAN, DRY, AND COMFORTABLE. LANA PICC LINE AND LANA IV LINE 22G PATIENT, INTACT. WILL CONT. TO MONITOR.
[2017-12-13] MEDS: BLOOD SUGAR DIAGNOSTIC 1 EACH STRIP IN SCH ×5 (00:32→23:57)
[2017-12-13] MEDS: MEROPENEM 1 G in IV NS 0.9% 100 ML IV SCH ×4 (00:32→23:58)
[2017-12-13] MEDS: METOCLOPRAMIDE HCL 10 MG/2 ML VIAL IV SCH ×4 (01:19→20:14)
[2017-12-13 04:00] VITALS: BP 123/75
--- NOTE | 2017-12-13 04:30 | NUR ---
RUDDY NOTES PATIENT IS COMPLAINING OF 8/10 PAIN AND HYDROCODONE BITARTRATE 5-325mg IS ADMINISTERED BY PT'S REQUEST. Addendum: 12/13/17 at 0551 by GUNJAN MCKEON RN AFTER ADMINISTRATION OF HYDROCODONE 5-325mg AT 0430 PATIENT'S PAIN HAS BEEN REASSESSED AT 0530. PATIENT WAS SLEEPING AND PAIN WAS 2/10 . MEDICATION IS EFFECTIVE.
--- NOTE | 2017-12-13 06:30 | NUR ---
RN NOTES PATIENT COMFORTABLY RESTING IN BED. NO ACUTE CHANGES NOTED DURING MY SHIFT. NO SOB AT THIS TIME. ALL NEEDS ARE ADDRESSED. PT CARE WILL BE ENDORSED TO MORNING NURSE FOR [facility].
[2017-12-13 08:00] VITALS: BP 124/56
[2017-12-13] MEDS: ENOXAPARIN SODIUM 40 MG/0.4 ML DISP.SYRIN SQ SCH (08:13)
[2017-12-13] MEDS: PANTOPRAZOLE 40 MG VIAL IV SCH ×2 (08:13→16:44)
[2017-12-13] MEDS: ENSURE CLEAR 237 ML LIQUID (MIX BERRY) PO SCH ×3 (08:17→17:46)
[2017-12-13] MEDS: IV D5/0.45 NACL 1,000 ML IV PRN (08:29)
[2017-12-13] MEDS: VALPROATE 500 MG in IV D5W 100 ML IV SCH ×2 (09:24→21:05)
[2017-12-13] MEDS: HYDROCODONE/APAP 5/325MG 1 EACH TABLET PO PRN ×2 (14:22→19:08)
[2017-12-13] MEDS: FLUCONAZOLE IN NS 400 MG in PREMIX 1 EA IV SCH ×2 (15:29)
[2017-12-13 16:00] VITALS: BP 140/70
[2017-12-13] MEDS: LORAZEPAM INJ 2 MG/ML VIAL IV PRN (16:44)
--- NOTE | 2017-12-13 19:12 | NUR ---
DATABASE MODELER NOTE PATIENT GIVEN PAIN MEDICATION RESTING COMFORTABLY IN BED. ALL SAFETY MEASURES IN PLACE. SITTER AT BEDSIDE. REPORT GIVEN TO MIRIAN FOX. ALL ORDERS CARRIED OUT.
--- NOTE | 2017-12-13 19:52 | NUR ---
MS 1 RN NOTE PT IN BED AWAKE, A/O X 2 CONFUSED. NO DISTRESS OR DISCOMFORT NOTED. DENIES PAIN. RESP EVEN AND NON LABORED. SKIN WARM TO TOUCH. SJ DRAIN INTACT AND PATENT, 0 ML OUTPUT AT THIS TIME. SX WOUND DRESSING I/D/C. SITTER AT BED SIDE. SIDE RAILS UP X 3 AND CALL LIGHT WITHIN REACH. VSS. CONTINUE TO MONITOR HIM. Addendum: 12/13/17 at 2028 by MIRIAN GARG RN SECOND ACCORDIAN DRAIN ALSO INTACT AND PATENT DRAINING BEIGE COLOR. CONTINUE TO MONITOR HIM.
[2017-12-13] MEDS: MORPHINE SULFATE INJ 4 MG/ML DISP.SYRIN IV PRN (21:05)
[2017-12-13] MEDS: MIRTAZAPINE SOLUTAB 15 MG/UDTABLET TAB.RAPDIS PO SCH (21:06)
--- NOTE | 2017-12-13 21:06 | NUR ---
MS 1 RN NOTE PT IN BED C/O PAIN IN LOWER ABD 02/03, MORPHINE 4MG IVP GIVEN FOR PAIN, ALSO PT ASKING FOR ALL NIGHT TIME MEDS NOW. DUE MEDS GIVEN. CONTINUE TO MONITOR HIM.
--- NOTE | 2017-12-13 21:36 | NUR ---
MS 1 RN NOTE PT FALL ASLEEP, AROUSABLE. PAIN SUBSIDED /. NO DISTRESS NOTED.
[2017-12-14] MEDS: ZOLPIDEM TARTRATE 5 MG TABLET PO PRN (00:10)
--- NOTE | 2017-12-14 00:10 | NUR ---
MS 1 RN NOTE PT WOKE UP C/O INSOMNIA, AMBIEN 5 MG PO GIVEN. CONTINUE TO MONITOR HIM.
--- NOTE | 2017-12-14 01:10 | NUR ---
MS 1 RN NOTE PT FALL BACK TO SLEEP, NO DISTRESS NOTED. IVF INFUSING WELL. NO S/S OF INFILTRATION NOTED.
[2017-12-14] MEDS: METOCLOPRAMIDE HCL 10 MG/2 ML VIAL IV SCH ×3 (02:05→13:25)
[2017-12-14 04:00] VITALS: BP 158/75
[2017-12-14] MEDS: BLOOD SUGAR DIAGNOSTIC 1 EACH STRIP IN SCH ×2 (06:23→11:49)
[2017-12-14] MEDS: HYDROCODONE/APAP 5/325MG 1 EACH TABLET PO PRN ×2 (06:24→16:04)
--- NOTE | 2017-12-14 06:25 | NUR ---
MS 1 RN NOTE PT IN BED SITTING UP. C/O PAIN IN LOWER BACK 6/10 DULL ACHING. NORCO 1 TAB PO GIVEN. IVF INFUSING WELL, NO S/S OF INFILTRATION NOTED. SITTER AT BED SIDE. SIDE RAILS UP X 3 AND CALL LIGHT WITHIN REACH. WILL ENDORSE TO DAY SHIFT NURSE FOR CONTINUE TO CARE.
--- NOTE | 2017-12-14 06:29 | NUR ---
MS 1 RN NOTE 0 ML OUTPUT FROM THE DRAINS. BOTH ARE INTACT AND PATENT. DRESSING I/C/D.
--- NOTE | 2017-12-14 07:17 | NUR ---
MS RN OPENING NOTE RECEIVED BEDSIDE SBAR REPORT ON THE PATIENT. PATIENT IS A/O X2, CONFUSED, FORGETFUL. ASLEEP, EASILY ABUSABLE IN BED. BED IS LOCKED, IN LOWEST POSITION, SIDE RAILS UP X2, BED ALARM IS ON. DANIEL LIGHT WITHIN REACH. SJ DRAIN INTACT. NO DRAINAGE NOTED. ACCORDION DRAIN INTACT WITH SCAN AMOUNT OF BEIGE DRAINAGE PRESENT. PATIENT DENIES PAIN/DISCOMFORT AT THIS TIME. ALL NEEDS ARE MET. WILL CONTINUE TO ASSESS/MONITOR THROUGHOUT THE SHIFT.
[2017-12-14 08:00] VITALS: BP 131/64
[2017-12-14] MEDS: PANTOPRAZOLE 40 MG VIAL IV SCH ×2 (08:35→16:04)
[2017-12-14] MEDS: MEROPENEM 1 G in IV NS 0.9% 100 ML IV SCH (08:38)
[2017-12-14] MEDS: ENSURE CLEAR 237 ML LIQUID (MIX BERRY) PO SCH ×2 (08:55→13:24)
[2017-12-14] MEDS: IV D5/0.45 NACL 1,000 ML IV PRN (09:04)
[2017-12-14] MEDS: ENOXAPARIN SODIUM 40 MG/0.4 ML DISP.SYRIN SQ SCH (09:31)
[2017-12-14] MEDS: VALPROATE 500 MG in IV D5W 100 ML IV SCH (11:23)
--- NOTE | 2017-12-14 12:00 | NUR ---
RELAYED TO DR. SALAMANCA DISCHARGE PLAN FOR PT. ,OK TO D/C PT. NO NEW ORDERS ,AWARE WILL BE D/C WITH DRAIN,SNF INFO GIVEN TO DR. SALAMANCA SO HE CAN FF. UP PT. IN SNF CM AWARE,DR. YATES AWARE.
[2017-12-14] MEDS ORDERED: [UNRECOGNIZED DRUG - CODE] IV (12:02)
[2017-12-14] MEDS ORDERED: MIRT15TA3 PO (12:02)
[2017-12-14] MEDS ORDERED: HYDR-3972 PO (12:02)
[2017-12-14] MEDS ORDERED: PANT40VI IV (12:02)
[2017-12-14] MEDS ORDERED: HYDR20VI4 IV (12:02)
[2017-12-14] MEDS ORDERED: ACET325T53 PO (12:02)
--- NOTE | 2017-12-14 12:14 | NUR ---
DR YATES AT THE BEDSIDE. PER DR YATES AND CHARGE NURSE HOMER PATIENT TO BE TRANSFERRED TO [facility] WITH THE DRAINS AND THE PICC LINE. DR FINCH INFORMED. DR FINCH WILL FOLLOW UP WITH THE PATIENT AT THE REHAB.
[2017-12-14] MEDS: MORPHINE SULFATE INJ 4 MG/ML DISP.SYRIN IV PRN (13:43)
--- NOTE | 2017-12-14 13:51 | NUR ---
PATIENT COMPLAINED OF SEVERE PAIN IN RIGHT ABDOMINAL AREA. MORPHINE ADMINISTERED ORDERED.
[2017-12-14 16:00] VITALS: BP 135/70
[2017-12-14] MEDS: FLUCONAZOLE IN NS 400 MG in PREMIX 1 EA IV SCH ×2 (16:04)
--- NOTE | 2017-12-14 16:18 | NUR ---
PATIENT COMPLAINED OF LOW BACK PAIN. NORCO ADMINISTERED ORDERED.
--- NOTE | 2017-12-14 16:20 | NUR ---
PERIPHERAL IV REMOVED. PICC LINE STILL INTACT. PT TOLERATED PROCEDURE WELL. NO EVIDENCE OF BLEEDING.
--- NOTE | 2017-12-14 17:12 | NUR ---
DISCHARGE ORDER RECEIVED. PATIENT IS TO BE [facility]. TELEPHONE SBAR REPORT GIVEN TO RUDDY SALAMANCA AT ACCEPTING FACILITY. DRESSINGS CHANGED, CURRENTLY DRY, CLEAN AND INTACT. PICTURES TAKEN AND PLACED INTO THE CHART. PICC LINE IN PLACE. PATIENT WILL RECEIVE ANTIBIOTIC FOR 10 MORE DAYS AT THE FACILITY. SJ DRAIN AND ACCORDION DRAIN INTACT. DR FINCH WILL FOLLOW UP WITH THE PATIENT AT THE FACILITY.
--- NOTE | 2017-12-14 18:10 | NUR ---
AMBULANCE AT THE BEDSIDE. BEDSIDE REPORT GIVEN TO AMBULANCE STAFF. ALL DISCHARGE MATERIALS/ORDERS/PRESCRIPTIONS IN A FOLDER GIVEN TO AMBULANCE STAFF. ALL BELONGINGS ARE ACCOUNTED FOR. PATIENT HAS $490 DOLLARS EVEN IN THE [place]. ENDORSED TO AND WITNESSED BY AMBULANCE STAFF EDWARD. PATIENT IS LEAVING THE UNIT IN STABLE CONDITION ACCOMPANIED BY THE AMBULANCE STAFF.
== END 2017-12-14 18:10 | DRG 710 ==
LOC: ER 18:44 → MED 22:18 → ICU 11-27 22:37 → TELE-TD 11-29 17:23 → MEDSG1 12-02 09:35 → TELE1 12-03 11:01 → MEDSG1 12-05 11:08
PROVIDERS: ADMIT Hospitalist; ATTEND Hospitalist
DX: A41.9 Sepsis, unspecified organism (principal); N17.0 Acute kidney failure with tubular necrosis; R65.21 Severe sepsis with septic shock; E43 Unspecified severe protein-calorie malnutrition; K65.1 Peritoneal abscess; R18.8 Other ascites; E87.1 Hypo-osmolality and hyponatremia; K26.5 Chronic or unspecified duodenal ulcer with perforation; D63.8 Anemia in other chronic diseases classified elsewhere; K56.7 Ileus, unspecified; K85.90 Acute pancreatitis without necrosis or infection, unspecified; N18.9 Chronic kidney disease, unspecified; K57.90 Diverticulosis of intestine, part unspecified, without perforation or abscess without bleeding; E03.9 Hypothyroidism, unspecified; E83.51 Hypocalcemia; J98.11 Atelectasis; Z91.14 Patient's other noncompliance with medication regimen; Z87.891 Personal history of nicotine dependence; F41.9 Anxiety disorder, unspecified; E78.5 Hyperlipidemia, unspecified; R73.9 Hyperglycemia, unspecified; D50.9 Iron deficiency anemia, unspecified; I70.0 Atherosclerosis of aorta; K57.30 Diverticulosis of large intestine without perforation or abscess without bleeding; K52.9 Noninfective gastroenteritis and colitis, unspecified; F39 Unspecified mood [affective] disorder; D47.3 Essential (hemorrhagic) thrombocythemia; E88.09 Other disorders of plasma-protein metabolism, not elsewhere classified; Z68.26 Body mass index [BMI] 26.0-26.9, adult; F32.9 Major depressive disorder, single episode, unspecified
CPT/HCPCS: 36415; 36569; 71045-TC; 74018; 74246-TC; 75989; 75989-TC; 76705-TC; 78226; 80048-TC; 80053-TC; 80061-TC; 80076-TC; 80164-TC; 80202-TC; 81000-TC; 82533; 82945-TC; 82962-TC; 83520; 83540-TC; 83605-TC; 83690-TC; 83735-TC; 83935-TC; 84100-TC; 84300-TC; 84439-TC; 84443-TC; 84478-TC; 84484-TC; 85025-TC; 85378-TC; 85385-TC; 85610-TC; 85730-TC; 86256; 86677; 86850-TC; 86921-TC; 87040-TC; 87070-TC; 87081-TC; 87086-TC; 88312-TC; 88342; 93307-TC; 94799-TC; A4216; A4606; A6253; A6402; A6403; A9537; A9563; C1751; C9113; J0330; J0360; J0610; J1100; J1450; J1630; J1650; J1815; J1940; J2060; J2185; J2250; J2270; J2310; J2405; J2543; J2704; J2710; J2765; J3010; J3370; J3475; J3480; J3490; J7030; J7040; J7050; J7060; P9016-BL; Q9963; Q9967; Z7610

== ENCOUNTER 2017-12-16 15:04 | Emergency (ER) | payer OTHER ==
[~2017-12-16] VITALS: Ht 175.3 cm; Wt 59.0 kg
[~2017-12-16 15:04] MED LIST: ACET325T53 PO; HYDR-3972 PO; HYDR20VI4 IV; MIRT15TA3 PO; PANT40VI IV; [UNRECOGNIZED DRUG - CODE] IV
--- NOTE | 2017-12-16 15:15 | NUR ---
PT SENT BY DR KEBEDE FOR LOW H/H; NO COMPLAINTS. SEEN BY MD FOR EVAL. SAFETY AND COMFORT MEASURES PROVIDED. WILL MONITOR.
--- NOTE | 2017-12-16 15:30 | NUR ---
IV ACCESS STARTED. BLOOD DRAWN FOR LABS.
[2017-12-16 16:09] LABS: BASOPHILS # (AUTO) 0.3 /CMM (0.0-0.2); BASOPHILS % (AUTO) 3.5 % (0.0-2.0); EOSINOPHILS % (AUTO) 4.5 % (0.0-6.0); HEMATOCRIT 22 % (39-51); HEMOGLOBIN 7.4 g/dL (13.5-17.5); LYMPHOCYTES # (AUTO) 0.9 /CMM (0.8-4.8); LYMPHOCYTES % (AUTO) 12.4 % (20.0-44.0); MEAN CORPUSCULAR HGB CONC 34 g/dl (31.0-36.0); MEAN CORPUSCULAR VOLUME 77 fL (80-96); MONOCYTES # (AUTO) 0.6 /CMM (0.1-1.30); MONOCYTES % (AUTO) 8.3 % (2.0-12.0); NEUTROPHILS # (AUTO) 5.5 /CMM (1.8-8.9); NEUTROPHILS % (AUTO) 71.3 % (43.0-81.0); RDW COEFFICIENT OF VARIATION 18.2 (11.5-15.0); RED BLOOD CELL COUNT(AUTO) 2.81 MIL/uL (4.5-6.0); WHITE BLOOD COUNT (AUTO) 7.6 K/uL (4.3-11.0)
[2017-12-16 16:14] LABS: CALCIUM, SERUM 9.8 mg/dL (8.5-10.1); CARBON DIOXIDE 26 mmol/L (21-32); CHLORIDE 100 mmol/L (98-107); CREATININE 0.9 mg/dL (0.6-1.3); GLUCOSE 101 mg/dL (74-106); POTASSIUM 3.9 mmol/L (3.5-5.1); SODIUM SERUM 133 mmol/L (136-145); UREA NITROGEN, BLOOD 9 mg/dL (7-18)
[2017-12-16 16:19] LABS: PLATELET COUNT (AUTO) 928 /CMM (150-450)
[2017-12-16] MEDS ORDERED: HYDR-552 PO (16:41)
[2017-12-16] MEDS ORDERED: ACET-2605 PO ×2 (16:41)
[2017-12-16] MEDS ORDERED: PANT40TA2 PO (16:41)
[2017-12-16] MEDS ORDERED: MAGN400O6 PO (16:41)
[2017-12-16] MEDS ORDERED: MIRT15TA7 PO (16:41)
[2017-12-16] MEDS ORDERED: NA P133E RC (16:41)
[2017-12-16] MEDS ORDERED: MAG30ORA PO (16:41)
[2017-12-16] MEDS ORDERED: MERO1PIG IV (16:41)
[2017-12-16] MEDS ORDERED: FLUC200P12 IV (16:41)
[2017-12-16] MEDS ORDERED: BISA10SU8 RC (16:41)
[2017-12-16] MEDS ORDERED: DOCU-141 PO (16:41)
[2017-12-16] MEDS ORDERED: ACET-868 PO (16:41)
[2017-12-16] MEDS ORDERED: ZOLP5TAB2 PO (16:41)
[2017-12-16] MEDS ORDERED: ACID1TAB12 PO (16:41)
--- NOTE | 2017-12-16 16:49 | NUR ---
CALLED [facility] FOR TRANSPORT BACK TO [facility], ETA 90 MIN, TRIP #[id number]
[2017-12-16] MEDS ORDERED: ACETAMINOPHEN ES 500 MG TABLET ONE (17:40)
[2017-12-16] MEDS ORDERED: ACETAMINOPHEN ES 500 MG TABLET PO ONE (18:00)
--- NOTE | 2017-12-16 18:10 | NUR ---
Patient is resting comfortably in bed. Easily aroused. VSS
--- NOTE | 2017-12-16 19:04 | NUR ---
REPORT GIVEN TO MOSHE FOX FOR WARNER.
[2017-12-16 19:28] VITALS: BP 131/66
== END 2017-12-16 19:32 | disposition home or self-care (01) ==
LOC: ER 15:07
DX: D64.89 Other specified anemias (principal); F03.90 Unspecified dementia, unspecified severity, without behavioral disturbance, psychotic disturbance, mood disturbance, and anxiety
CPT/HCPCS: 36415; 80048-TC; 85025-TC; 86850-TC; A4606; Z7610

== ENCOUNTER 2018-08-31 13:29 | Emergency (ER) | payer MEDICAID, OTHER ==
[~2018-08-31] VITALS: Ht 167.6 cm; Wt 72.6 kg
[~2018-08-31 13:29] MED LIST changes: +ACET-2605 PO; +ACET-868 PO; -ACET325T53 PO; +ACID1TAB12 PO; +BISA10SU8 RC; +DOCU-141 PO; +FLUC200P12 IV; -HYDR-3972 PO; +HYDR-4384 PO; -HYDR20VI4 IV; +MAG30ORA PO; +MAGN400O6 PO; +MERO1PIG IV; -MIRT15TA3 PO; +MIRT15TA7 PO; +NA P133E RC; +PANT40TA2 PO; -PANT40VI IV; +ZOLP5TAB2 PO; -[UNRECOGNIZED DRUG - CODE] IV
--- NOTE | 2018-08-31 13:29 | NUR ---
BIB SELF W C/O BLOOD IN THE STOOL X 2-3 DAYS, COMBINATION OF BROWN AND BLACK COLOR IN HIS STOOL, ALSO C/O ABDOMINAL PRESSURE-LIKE PAIN, TO ER BED 2, HOOKED TO MONITOR, CHANGED TO GOWLetitia, AWAITING MD APPLE
--- NOTE | 2018-08-31 14:00 | NUR ---
DR KOHLER AT BEDSIDE.
[2018-08-31] MEDS ORDERED: PANTOPRAZOLE 40 MG VIAL ONE (14:23)
[2018-08-31 14:26] LABS: BASOPHILS # (AUTO) 0.1 /CMM (0.0-0.2); BASOPHILS % (AUTO) 1.6 % (0.0-2.0); EOSINOPHILS % (AUTO) 3.6 % (0.0-6.0); HEMATOCRIT 33 % (39-51); HEMOGLOBIN 10.1 g/dL (13.5-17.5); LYMPHOCYTES # (AUTO) 1.2 /CMM (0.8-4.8); MEAN CORPUSCULAR HGB CONC 31 g/dl (31.0-36.0); MEAN CORPUSCULAR VOLUME 82 fL (80-96); MONOCYTES # (AUTO) 0.7 /CMM (0.1-1.30); MONOCYTES % (AUTO) 8.3 % (2.0-12.0); NEUTROPHILS # (AUTO) 5.9 /CMM (1.8-8.9); NEUTROPHILS % (AUTO) 71.5 % (43.0-81.0); PLATELET COUNT (AUTO) 482 /CMM (150-450); RED BLOOD CELL COUNT(AUTO) 4.03 MIL/uL (4.5-6.0); WHITE BLOOD COUNT (AUTO) 8.3 K/uL (4.3-11.0)
[2018-08-31] MEDS ORDERED: IV NS 0.9% 1,000 ML BAG IV ONE (14:30)
[2018-08-31] MEDS ORDERED: PANTOPRAZOLE 40 MG VIAL IV ONE (14:30)
[2018-08-31 14:32] LABS: CALCIUM, SERUM 9.3 mg/dL (8.5-10.1); CARBON DIOXIDE 28 mmol/L (21-32); CHLORIDE 103 mmol/L (98-107); CREATININE 1.2 mg/dL (0.6-1.3); GLUCOSE 84 mg/dL (74-106); SODIUM SERUM 140 mmol/L (136-145); UREA NITROGEN, BLOOD 20 mg/dL (7-18)
[2018-08-31 14:38] LABS: ALANINE AMINOTRANSFERASE 10 U/L (12-78); ALBUMIN 3.8 g/dL (3.4-5.0); ALKALINE PHOSPHATASE 81 U/L (46-116); ASPARTATE AMINOTRANSFERASE 14 U/L (15-37); BILIRUBIN,TOTAL 0.2 mg/dL (0.2-1.0)
--- NOTE | 2018-08-31 16:00 | NUR ---
IV removed. Catheter intact and site benign. Pressure and 4x4 applied to site. No bleeding noted.Patient discharged to home in stable condition. Written and verbal after care instructions given. Patient verbalizes understanding of instruction.
[2018-08-31 16:19] VITALS: BP 129/70
== END 2018-08-31 16:20 | disposition home or self-care (01) ==
LOC: ER 13:35
DX: D64.9 Anemia, unspecified (principal); K92.2 Gastrointestinal hemorrhage, unspecified; F03.90 Unspecified dementia, unspecified severity, without behavioral disturbance, psychotic disturbance, mood disturbance, and anxiety; F10.10 Alcohol abuse, uncomplicated; Y90.9 Presence of alcohol in blood, level not specified
CPT/HCPCS: 36415; 80048; 80076; 85025; 85730; 86850; 96374; 99283; A4606; C9113; J7030

== ENCOUNTER 2018-09-15 18:21 | Emergency (ER) | payer MEDICAID ==
[~2018-09-15] VITALS: Ht 170.2 cm; Wt 72.6 kg
--- NOTE | 2018-09-15 18:38 | NUR ---
BIB SELF FOR DIFFUSE ABDOMINAL PAIN SINCE YESTERDAY, DENIES N/V/D, TO ER BED 6, HOOKED TO MONITOR, AWAITING MD APPLE, PROVIDED WITH BLANKET, KEPT SAFE AND COMFORTABLE.
[2018-09-15] MEDS ORDERED: FAMOTIDINE/PF INJ 20 MG/2 ML VIAL IV ONE ×2 (19:00→19:01)
[2018-09-15] MEDS ORDERED: IV NS 0.9% 1,000 ML BAG IV ONE (19:00)
[2018-09-15] MEDS ORDERED: ONDANSETRON HCL/PF 4 MG/2 ML VIAL IVP ONE (19:00)
[2018-09-15] MEDS ORDERED: ONDANSETRON HCL/PF 4 MG/2 ML VIAL ONE (19:01)
[2018-09-15 19:09] LABS: BASOPHILS % (AUTO) 0.8 % (0.0-2.0); HEMATOCRIT 35 % (39-51); HEMOGLOBIN 10.9 g/dL (13.5-17.5); LYMPHOCYTES # (AUTO) 0.9 /CMM (0.8-4.8); LYMPHOCYTES % (AUTO) 21.1 % (20.0-44.0); MEAN CORPUSCULAR HGB CONC 31 g/dl (31.0-36.0); MEAN CORPUSCULAR VOLUME 80 fL (80-96); MONOCYTES # (AUTO) 0.5 /CMM (0.1-1.30); MONOCYTES % (AUTO) 11.7 % (2.0-12.0); NEUTROPHILS # (AUTO) 2.6 /CMM (1.8-8.9); NEUTROPHILS % (AUTO) 60.4 % (43.0-81.0); PLATELET COUNT (AUTO) 268 /CMM (150-450); RED BLOOD CELL COUNT(AUTO) 4.42 MIL/uL (4.5-6.0); WHITE BLOOD COUNT (AUTO) 4.3 K/uL (4.3-11.0)
[2018-09-15 19:19] LABS: CALCIUM, SERUM 9.2 mg/dL (8.5-10.1); CARBON DIOXIDE 24 mmol/L (21-32); CHLORIDE 105 mmol/L (98-107); CREATININE 1.1 mg/dL (0.6-1.3); GLUCOSE 116 mg/dL (74-106); POTASSIUM 4.1 mmol/L (3.5-5.1); SODIUM SERUM 138 mmol/L (136-145); UREA NITROGEN, BLOOD 18 mg/dL (7-18)
[2018-09-15 19:24] LABS: ALANINE AMINOTRANSFERASE 8 U/L (12-78); ALBUMIN 3.8 g/dL (3.4-5.0); ALKALINE PHOSPHATASE 72 U/L (46-116); ASPARTATE AMINOTRANSFERASE 17 U/L (15-37); BILIRUBIN,TOTAL 0.2 mg/dL (0.2-1.0); LIPASE 170 U/L (73-393); TOTAL PROTEIN, SERUM 7.5 g/dL (6.4-8.2)
--- NOTE | 2018-09-15 19:32 | NUR ---
PT NOT ABLE TO PROVIDE URINE SAMPLE AT THIS TIME. MADE AWARE
--- NOTE | 2018-09-15 19:51 | NUR ---
PT NOT ABLE TO PROVIDE ADDRESS. TRYING TO VERIFY INFORMATION BEFORE DISCHARGE.
--- NOTE | 2018-09-15 20:18 | NUR ---
PT IN BED AWAKE, HOOKED TO MONITOR, VSS, NAD. WILL CONTINUE TO MONITOR
--- NOTE | 2018-09-15 21:32 | NUR ---
PT IN BED COMFORTABLE, ASLEEP, HOOKED TO MONITOR, KEPT WARM, COMFORTABLE AND SAFE. WILL CONTINUE TO MONITOR
[2018-09-15 22:37] LABS: APPEARANCE,URINE CLEAR (CLEAR); BILIRUBIN,URINE NEGATIVE (NEGATIVE); BLOOD, URINE NEGATIVE Ery/uL (NEGATIVE); COLOR,URINE YELLOW (YELLOW); KETONES,URINE NEGATIVE (NEGATIVE); LEUKOCYTE ESTERASE ,URINE NEGATIVE (NEGATIVE); NITRITE, URINE NEGATIVE (NEGATIVE); PH,URINE 5.5 (5.0-8.0); PROTEIN,URINE NEGATIVE (NEGATIVE); UGLUCOSE NEGATIVE (NEGATIVE); UROBILINOGEN,URINE 0.2 EU/dL (0.2)
--- NOTE | 2018-09-15 23:52 | NUR ---
PT IN BED COMFORTABLY ASLEEP, HOOKED TO MONITOR, VSS, KEPT WARM AND SAFE.
--- NOTE | 2018-09-16 00:25 | NUR ---
REPORT GIVEN TO SATHISH FOX FOR WARNER
[2018-09-16 08:37] VITALS: BP 123/63
== END 2018-09-16 08:35 | disposition home or self-care (01) ==
LOC: ER 18:22
DX: K43.9 Ventral hernia without obstruction or gangrene (principal); K59.00 Constipation, unspecified; F10.10 Alcohol abuse, uncomplicated; Y90.0 Blood alcohol level of less than 20 mg/100 ml; Z98.890 Other specified postprocedural states
CPT/HCPCS: 36415; 71045; 80048; 80076; 80307; 81001; 83690; 85025; 96374; 96375; 99284; J2405; J3490; J7030; 81000-TC; G0480

== ENCOUNTER 2019-01-01 11:33 | Emergency (ER) | payer MEDICAID ==
[~2019-01-01] VITALS: Ht 170.2 cm; Wt 70.8 kg
[2019-01-01 11:33] VITALS: BP 145/70
[~2019-01-01 11:33] MED LIST changes: +BISA10SU11 RC; -BISA10SU8 RC
--- NOTE | 2019-01-01 11:50 | NUR ---
NOEMY 102 FROM [facility] W C/O ABDOMINAL PAIN TOOK TYLENOL, INEFFECTIVE. RECENTLY SEEN AT [facility]. STATES HE'S BEEN DEALING WITH PAIN FOR MONTHS. HAS SCABBED INCISION ON ABDOMEN FROM RECENT SURGERY. PT CANNOT REMEMBER THE DATE BUT BELIEVES IT'S BEEN DAYS. STATES HAVING DARK BLOODY STOOL, DENIES CHANGES IN BLADDER HABITS. AOX3, VSS, RR EVEN AND UNLABORED ON RA. ADMITS DIFFICULTY AMBULATING. PROVIDED URINAL AND BLANKET AT BEDSIDE. ON MONITOR AND READY FOR EVAL.
--- NOTE | 2019-01-01 12:04 | NUR ---
CALLED [facility] FOR TRANSPORT BACK HOME, ETA 30 MIN, TRIP #[id number]
--- NOTE | 2019-01-01 12:45 | NUR ---
REPORT GIVEN TO [facility] EMT UN[address] FOR TRANSPORT.
== END 2019-01-01 12:49 | disposition home or self-care (01) ==
LOC: ER 11:35
DX: R10.9 Unspecified abdominal pain (principal); G89.29 Other chronic pain; F10.10 Alcohol abuse, uncomplicated; Y90.9 Presence of alcohol in blood, level not specified; Z98.890 Other specified postprocedural states

== ENCOUNTER 2019-01-01 21:12 | Emergency (ER) | payer MEDICAID ==
[~2019-01-01] VITALS: Ht 167.6 cm; Wt 74.8 kg
[2019-01-01 21:15] VITALS: BP 108/48
--- NOTE | 2019-01-01 22:56 | NUR ---
AMISHA FROM STREET. AAOX2. NAD NOTED, BREATHING EVEN AND UNLABORED. AMBULATORY. C.O ABDOMINAL PAIN 02/03 SHARPINTERMITENT PAIN. PT HAD ABDOMINAL SURGERY BUT CANT RECAL WHEN EVIDENCED BY INCISION WITH SCAB ON MID ABDOMEN. PT ALSO COMPLAINTS OF HEARTBURN. DENIES N/V/D. TO ER BED 10. AWAITING MD FOR EVAL
--- NOTE | 2019-01-01 23:07 | NUR ---
PT HAS BEEN HERE AT THE ER FOR THE SAME REASON EARLIER AND GOT CLEARED FOR DC.
--- NOTE | 2019-01-01 23:29 | NUR ---
PT DENIES BEING HOMELESS BUT TAP CARD PROVIDED BECAUSE PT HAVE NOT MONEY TO TAKE THE BUS. PT PROVIDED ADDRESS WHIC IS SAME AT IN PROFILE. ENGAGEMENT MANAGER AWARE
--- NOTE | 2019-01-01 23:30 | NUR ---
Patient discharged to home in stable condition. Written and verbal after care instructions given. Patient verbalizes understanding of instruction.(pt. name) ambulatory with a steady gait
== END 2019-01-01 23:30 | disposition home or self-care (01) ==
LOC: ER 21:14
DX: R10.32 Left lower quadrant pain (principal); F10.10 Alcohol abuse, uncomplicated; Y90.9 Presence of alcohol in blood, level not specified; Z98.890 Other specified postprocedural states

== ENCOUNTER 2019-03-13 12:10 | Emergency (ER) | payer MEDICAID, OTHER ==
[~2019-03-13] VITALS: Ht 167.6 cm; Wt 66.7 kg
--- NOTE | 2019-03-13 12:20 | NUR ---
[id number] C/O ABDOMINAL PAIN AND DIZZINESS X "COUPLE OF DAYS.". PATIENT A/OX3, BREATHING EVEN ANDUNLABORED, NO DISTRESS NOTED, ATTACHED TO ORTHODONTIC BAND MAKER. NEEDS ATTENDED
[2019-03-13] MEDS ORDERED: MAG HYDROX/AL HYDROX/SIMETH 30 ML UDC PO ONE (13:00)
[2019-03-13] MEDS ORDERED: LIDOCAINE VISCOUS 2% UD 15 ML UDC MM ONE (13:00)
[2019-03-13] MEDS ORDERED: LIDOCAINE VISCOUS 2% UD 15 ML UDC ONE (13:02)
[2019-03-13] MEDS ORDERED: MAG HYDROX/AL HYDROX/SIMETH 30 ML UDC ONE (13:02)
[2019-03-13 13:14] VITALS: BP 132/62
--- NOTE | 2019-03-13 13:17 | NUR ---
Patient discharged to home in stable condition. Written and verbal after care instructions given. Patient verbalizes understanding of instruction. Tap card provided. Patient stated he's not homeless.
== END 2019-03-13 13:15 | disposition home or self-care (01) ==
LOC: ER 12:11
DX: G89.29 Other chronic pain (principal); K43.9 Ventral hernia without obstruction or gangrene; Z98.890 Other specified postprocedural states; Z79.899 Other long term (current) drug therapy

== ENCOUNTER 2019-03-13 14:14 | Emergency (ER) | payer OTHER ==
[~2019-03-13] VITALS: Ht 170.2 cm; Wt 68.0 kg
--- NOTE | 2019-03-13 14:22 | NUR ---
PT BIBRA FROM [facility] TO ED BED 15 C/O ABDOMINAL PAIN AND DIZZINESS. PT WAS SEEN EARLIER FOR SAME REASON AND WAS DISCHARGE. PT STATES "IM FEELING DIZZY." "MUST BE THE HEAT." GOWNED AND PLACED ON MONITOR. STABLE VITALS. AWAITING MD APPLE.
--- NOTE | 2019-03-13 14:51 | NUR ---
DR BIRCH AT BEDSIDE FOR EVAL.
[2019-03-13 15:00] LABS: BASOPHILS # (AUTO) 0.1 /CMM (0.0-0.2); BASOPHILS % (AUTO) 1.7 % (0.0-2.0); EOSINOPHILS % (AUTO) 3.9 % (0.0-6.0); HEMATOCRIT 24 % (39-51); HEMOGLOBIN 7.7 g/dL (13.5-17.5); LYMPHOCYTES # (AUTO) 0.6 /CMM (0.8-4.8); LYMPHOCYTES % (AUTO) 11.2 % (20.0-44.0); MEAN CORPUSCULAR HGB CONC 32 g/dl (31.0-36.0); MEAN CORPUSCULAR VOLUME 83 fL (80-96); MONOCYTES # (AUTO) 0.5 /CMM (0.1-1.30); MONOCYTES % (AUTO) 8.4 % (2.0-12.0); NEUTROPHILS # (AUTO) 4.3 /CMM (1.8-8.9); NEUTROPHILS % (AUTO) 74.8 % (43.0-81.0); PLATELET COUNT (AUTO) 367 /CMM (150-450); WHITE BLOOD COUNT (AUTO) 5.7 K/uL (4.3-11.0)
[2019-03-13] MEDS ORDERED: LIDOCAINE VISCOUS 2% UD 15 ML UDC MM ONE (15:00)
[2019-03-13] MEDS ORDERED: MAG HYDROX/AL HYDROX/SIMETH 30 ML UDC PO ONE (15:00)
[2019-03-13] MEDS ORDERED: IV NS 0.9% 500 ML BAG IV ONE (15:00)
[2019-03-13] MEDS ORDERED: FAMOTIDINE (20 MG) 20 MG TABLET PO ONE (15:00)
[2019-03-13 15:05] LABS: CARBON DIOXIDE 26 mmol/L (21-32); CHLORIDE 104 mmol/L (98-107); GLUCOSE 97 mg/dL (74-106); MAGNESIUM 2.4 mg/dL (1.8-2.4); POTASSIUM 4.5 mmol/L (3.5-5.1); SODIUM SERUM 141 mmol/L (136-145); UREA NITROGEN, BLOOD 22 mg/dL (7-18)
[2019-03-13] MEDS ORDERED: FAMOTIDINE (20 MG) 20 MG TABLET ONE (15:09)
[2019-03-13] MEDS ORDERED: MAG HYDROX/AL HYDROX/SIMETH 30 ML UDC ONE (15:09)
[2019-03-13] MEDS ORDERED: LIDOCAINE VISCOUS 2% UD 15 ML UDC ONE (15:09)
[2019-03-13 15:18] LABS: ALANINE AMINOTRANSFERASE 12 U/L (12-78); ALBUMIN 3.7 g/dL (3.4-5.0); ALKALINE PHOSPHATASE 54 U/L (46-116); ASPARTATE AMINOTRANSFERASE 21 U/L (15-37); B-TYPE NATRIURETIC PEPTIDE 112 PG/ML (0-125); BILIRUBIN,DIRECT 0.1 mg/dL (0.0-0.2); BILIRUBIN,TOTAL 0.3 mg/dL (0.2-1.0); TOTAL PROTEIN, SERUM 7.2 g/dL (6.4-8.2)
[2019-03-13 15:51] LABS: BAND % (MANUAL) 1 % (0.0-5.0); NEUTROPHILS % (MANUAL) 72 (42-76)
[2019-03-13 15:52] LABS: EOSINOPHILS % (MANUAL) 6 % (0-4); LYMPHOCYTES % (MANUAL) 10 % (16-48); MONOCYTES % (MANUAL) 11 % (0-11.0)
[2019-03-13 15:53] LABS: APPEARANCE,URINE Clear (CLEAR); BILIRUBIN,URINE Negative (NEGATIVE); BLOOD, URINE Trace-intact Ery/uL (NEGATIVE); COLOR,URINE Yellow (YELLOW); KETONES,URINE Negative (NEGATIVE); LEUKOCYTE ESTERASE ,URINE Negative (NEGATIVE); NITRITE, URINE Negative (NEGATIVE); PROTEIN,URINE Negative (NEGATIVE); UGLUCOSE Negative (NEGATIVE); UROBILINOGEN,URINE 0.2 EU/dL (0.2)
[2019-03-13 16:20] LABS: BACTERIA,URINE Rare /HPF (None Seen); RBC,URINE 0-2 /HPF (0-2); SQUAMOUS EPITHELIAL CELL,UR Few /HPF (None Seen); WBC,URINE 0-2 /HPF (0-3)
[2019-03-13 16:36] LABS: OCCULT BLOOD STOOL NEGATIVE (NEGATIVE)
[2019-03-13 17:08] LABS: IRON, SERUM 15 ug/dl (50-175); TOTAL IRON BINDING CAPACITY 469 ug/dl (250-450)
--- NOTE | 2019-03-13 17:13 | NUR ---
SAVOY PRES CROP NUTRITION SCIENTIST TO CONTACT REGARDING TRANSFER JT APARICIO
[2019-03-13 17:24] LABS: FERRITIN 15 ng/mL (8-388)
[2019-03-13 17:56] VITALS: BP 129/89
--- NOTE | 2019-03-13 17:57 | NUR ---
Patient discharged to home in stable condition. Written and verbal after care instructions given. Patient verbalizes understanding of instruction.IV removed. Catheter intact and site benign. Pressure and 4x4 applied to site. No bleeding noted.
== END 2019-03-13 17:57 | disposition home or self-care (01) ==
LOC: ER 14:16
DX: D64.9 Anemia, unspecified (principal); R06.00 Dyspnea, unspecified; R55 Syncope and collapse; Z87.11 Personal history of peptic ulcer disease; Z98.890 Other specified postprocedural states; Z79.899 Other long term (current) drug therapy
CPT/HCPCS: 36415; 71045; 80048; 80076; 81001; 82272; 82607; 82728; 83540; 83605; 83615; 83690; 83735; 83880; 84484; 85025; 85610; 93005; 96360; 99284; J7040 ×2; 81000-TC

== ENCOUNTER 2019-04-19 18:10 | Emergency (ER) | payer OTHER ==
[~2019-04-19] VITALS: Ht 170.2 cm; Wt 68.0 kg
[2019-04-19] MEDS ORDERED: IV NS 0.9% 500 ML BAG IV ONE (22:00)
[2019-04-19 22:36] LABS: BASOPHILS # (AUTO) 0.1 /CMM (0.0-0.2); LYMPHOCYTES # (AUTO) 0.9 /CMM (0.8-4.8); MONOCYTES # (AUTO) 0.6 /CMM (0.1-1.30); NEUTROPHILS # (AUTO) 12.4 /CMM (1.8-8.9)
[2019-04-19 22:39] LABS: BASOPHILS % (AUTO) 0.7 % (0.0-2.0); EOSINOPHILS % (AUTO) 0.5 % (0.0-6.0); HEMATOCRIT 21 % (39-51); LYMPHOCYTES % (AUTO) 6.1 % (20.0-44.0); MEAN CORPUSCULAR HGB CONC 31 g/dl (31.0-36.0); MEAN CORPUSCULAR VOLUME 82 fL (80-96); MONOCYTES % (AUTO) 4.3 % (2.0-12.0); NEUTROPHILS % (AUTO) 88.4 % (43.0-81.0); PLATELET COUNT (AUTO) 358 /CMM (150-450)
[2019-04-19] MEDS ORDERED: HYDROMORPHONE 1 MG/1 ML DISP.SYRIN ONE (22:41)
[2019-04-19 22:44] LABS: HEMOGLOBIN 6.5 g/dL (13.5-17.5)
[2019-04-19 22:47] LABS: CALCIUM, SERUM 8.7 mg/dL (8.5-10.1); CARBON DIOXIDE 24 mmol/L (21-32); CHLORIDE 104 mmol/L (98-107); CREATININE 1.2 mg/dL (0.6-1.3); GLUCOSE 125 mg/dL (74-106); POTASSIUM 4.8 mmol/L (3.5-5.1); SODIUM SERUM 136 mmol/L (136-145); UREA NITROGEN, BLOOD 49 mg/dL (7-18)
[2019-04-19] MEDS ORDERED: HYDROMORPHONE 1 MG/1 ML DISP.SYRIN IV ONE (23:00)
[2019-04-19 23:03] LABS: ALANINE AMINOTRANSFERASE 8 U/L (12-78); ALBUMIN 3.4 g/dL (3.4-5.0); ALKALINE PHOSPHATASE 53 U/L (46-116); ASPARTATE AMINOTRANSFERASE 10 U/L (15-37); BILIRUBIN,TOTAL 0.1 mg/dL (0.2-1.0); LIPASE 123 U/L (73-393); TOTAL PROTEIN, SERUM 6.7 g/dL (6.4-8.2)
[2019-04-19 23:24] LABS: LYMPHOCYTES % (MANUAL) 5 % (16-48); MONOCYTES % (MANUAL) 7 % (0-11.0); NEUTROPHILS % (MANUAL) 88 (42-76)
--- NOTE | 2019-04-19 23:50 | NUR ---
CALLED DR RODRIGUES [phone]. SPEAKING TO DAMON GUY Addendum: 04/19/19 at [address] PORTER SPEAKING WITH DAMON MIRAMONTES
--- NOTE | 2019-04-20 00:55 | NUR ---
PREFERRED IPA [phone] CM PEPPER
--- NOTE | 2019-04-20 00:59 | NUR ---
PT ASLEEP, NO ACUTE DISTRESS NOTED, RESP EVEN AND UNLABORED. SPOKE TO VP INTEGRATION, AWAITING BED AVAILABILITY.
--- NOTE | 2019-04-20 01:33 | NUR ---
[place] [id number] [phone] TRIP#[id number] ETA [id number]
--- NOTE | 2019-04-20 02:10 | NUR ---
REPORT GIVEN TO ROSS FOX AT [facility]
[2019-04-20] MEDS ORDERED: IV NS 0.9% 1,000 ML BAG IV ONE (02:30)
[2019-04-20 02:50] VITALS: BP 131/66
--- NOTE | 2019-04-20 02:50 | NUR ---
WINDY 323 AT BEDSIDE FOR [facility] RN TO RN REPORT DONE BY CHARGE NURSE. PT IS IN STABLE CONDITION FOR TRANSPORT. NAD NOTED
== END 2019-04-20 02:53 | disposition short-term general hospital (02) ==
LOC: ER 18:13
DX: K92.2 Gastrointestinal hemorrhage, unspecified (principal); D64.9 Anemia, unspecified; Z98.890 Other specified postprocedural states
CPT/HCPCS: 36415; 80048; 80076; 80307; 83690; 84484; 85025; 85730; 96374; 99285; J1170; J7030; J7040; G0480

== ENCOUNTER 2019-08-31 16:33 | Emergency (ER) | payer OTHER ==
[~2019-08-31] VITALS: Ht 162.6 cm; Wt 73.5 kg
--- NOTE | 2019-08-31 16:47 | NUR ---
BIBRA 860 FROM CLINIC C/O ABDOMINAL PAIN FOR 2 DAYS. -DIARRHEA, -VOMITING. ABDOMEN IS DISTENDED WITH APPEARANCE OF LARGE SURGICAL SCAR. REPORTS OF LOOSE STOOL. PT AOX3, VSS, RR EVEN AND UNLABORED ON RA. NO ACUTE DISTRESS NOTED. MADE COMFORTABLE AND READY FOR EVAL.
[2019-08-31] MEDS ORDERED: IV NS 0.9% 500 ML BAG IV ONE (17:00)
[2019-08-31 17:33] LABS: BASOPHILS # (AUTO) 0.1 /CMM (0.0-0.2); BASOPHILS % (AUTO) 1.3 % (0.0-2.0); EOSINOPHILS % (AUTO) 2.5 % (0.0-6.0); HEMATOCRIT 33 % (39-51); HEMOGLOBIN 9.7 g/dL (13.5-17.5); LYMPHOCYTES # (AUTO) 1.2 /CMM (0.8-4.8); LYMPHOCYTES % (AUTO) 17.7 % (20.0-44.0); MEAN CORPUSCULAR HGB CONC 29 g/dl (31.0-36.0); MEAN CORPUSCULAR VOLUME 80 fL (80-96); MONOCYTES # (AUTO) 0.5 /CMM (0.1-1.30); MONOCYTES % (AUTO) 7.8 % (2.0-12.0); NEUTROPHILS # (AUTO) 4.6 /CMM (1.8-8.9); NEUTROPHILS % (AUTO) 70.7 % (43.0-81.0); PLATELET COUNT (AUTO) 195 /CMM (150-450); RED BLOOD CELL COUNT(AUTO) 4.12 MIL/uL (4.5-6.0); WHITE BLOOD COUNT (AUTO) 6.5 K/uL (4.3-11.0)
[2019-08-31 17:48] LABS: ALANINE AMINOTRANSFERASE < 6 U/L (12-78); ALBUMIN 3.7 g/dL (3.4-5.0); ALKALINE PHOSPHATASE 68 U/L (46-116); ASPARTATE AMINOTRANSFERASE 12 U/L (15-37); BILIRUBIN,TOTAL 0.2 mg/dL (0.2-1.0); CALCIUM, SERUM 9.3 mg/dL (8.5-10.1); CARBON DIOXIDE 24 mmol/L (21-32); CHLORIDE 106 mmol/L (98-107); CREATININE 0.9 mg/dL (0.6-1.3); GLUCOSE 92 mg/dL (74-106); LIPASE 143 U/L (73-393); POTASSIUM 4.1 mmol/L (3.5-5.1); SODIUM SERUM 140 mmol/L (136-145); TOTAL PROTEIN, SERUM 7.3 g/dL (6.4-8.2); UREA NITROGEN, BLOOD 17 mg/dL (7-18)
[2019-08-31] MEDS ORDERED: IV NS 0.9% 250 ML IV ONE (18:02)
[2019-08-31] MEDS ORDERED: IOHEXOL-300 100 ML VIAL IV ONE (18:02)
[2019-08-31] MEDS ORDERED: CT SWABBABLE VALVE TRANS SET 1 EA INFUS.SET MC ONE (18:02)
--- NOTE | 2019-08-31 18:05 | NUR ---
PT TAKEN TO RADIOLOGY VIA [facility]
--- NOTE | 2019-08-31 18:16 | NUR ---
PT BACK FROM RADIOLOGY
[2019-08-31 18:36] LABS: APPEARANCE,URINE Clear (CLEAR); BILIRUBIN,URINE Negative (NEGATIVE); BLOOD, URINE Negative Ery/uL (NEGATIVE); COLOR,URINE Yellow (YELLOW); KETONES,URINE Negative (NEGATIVE); LEUKOCYTE ESTERASE ,URINE Negative (NEGATIVE); NITRITE, URINE Negative (NEGATIVE); PH,URINE 5.5 (5.0-8.0); PROTEIN,URINE Negative (NEGATIVE); UGLUCOSE Negative (NEGATIVE); UROBILINOGEN,URINE 0.2 EU/dL (0.2)
--- NOTE | 2019-08-31 19:18 | NUR ---
Patient is resting comfortably in bed with eyes closed. Easily aroused. VSS
[2019-08-31 19:44] VITALS: BP 147/68
--- NOTE | 2019-08-31 19:44 | NUR ---
PT GIVEN TAP CARD FOR TRANSPORT HOME.
== END 2019-08-31 19:53 | disposition home or self-care (01) ==
LOC: ER 16:43
DX: R10.30 Lower abdominal pain, unspecified (principal); R94.31 Abnormal electrocardiogram [ECG] [EKG]; Z98.890 Other specified postprocedural states
CPT/HCPCS: 36415; 71045; 74177; 80048; 80076; 81001; 83690; 84484; 85025; 93005; 99285; J7040; J7050; Q9967; 81000-TC

== ENCOUNTER 2019-09-04 16:30 | Emergency (ER) | payer OTHER ==
[~2019-09-04] VITALS: Ht 170.2 cm; Wt 72.6 kg
--- NOTE | 2019-09-04 16:42 | NUR ---
[id number] C/O ABDOMINAL PAIN, REQUESTING "PAIN SHOT". WAS SEEN HERE 4 DAYS AGO FOR SAME COMPLAINT. DENIES N/V, TENDERNESS. DENIES SOB. NO ACUTE DISTRESS NOTED. RR EVEN AND UNLABORED ON RA. SEEN BY PA. AWAITING ORDERS
[2019-09-04 17:34] LABS: BASOPHILS # (AUTO) 0.1 /CMM (0.0-0.2); BASOPHILS % (AUTO) 1.8 % (0.0-2.0); EOSINOPHILS % (AUTO) 1.8 % (0.0-6.0); HEMATOCRIT 31 % (39-51); HEMOGLOBIN 9.4 g/dL (13.5-17.5); MEAN CORPUSCULAR HGB CONC 30 g/dl (31.0-36.0); MEAN CORPUSCULAR VOLUME 78 fL (80-96); MONOCYTES # (AUTO) 0.6 /CMM (0.1-1.30); MONOCYTES % (AUTO) 8.4 % (2.0-12.0); NEUTROPHILS # (AUTO) 5.1 /CMM (1.8-8.9); PLATELET COUNT (AUTO) 253 /CMM (150-450); RED BLOOD CELL COUNT(AUTO) 4.02 MIL/uL (4.5-6.0); WHITE BLOOD COUNT (AUTO) 6.9 K/uL (4.3-11.0)
[2019-09-04 17:50] LABS: CALCIUM, SERUM 9.6 mg/dL (8.5-10.1); POTASSIUM 4.6 mmol/L (3.5-5.1)
[2019-09-04 18:00] LABS: BILIRUBIN,TOTAL 0.2 mg/dL (0.2-1.0)
[2019-09-04] MEDS ORDERED: PANTOPRAZOLE 40 MG VIAL IV ONE (18:00)
[2019-09-04] MEDS ORDERED: FAMOTIDINE/PF INJ 20 MG/2 ML VIAL IV ONE ×2 (18:00→18:52)
[2019-09-04] MEDS ORDERED: PANTOPRAZOLE 40 MG VIAL ONE (18:52)
--- NOTE | 2019-09-04 18:54 | NUR ---
Patient is resting comfortably in bed. VSS. WILL CONT TO HARVINDER
--- NOTE | 2019-09-04 19:46 | NUR ---
CALLED EMILIE SUP FOR TAXI VOUCHER
--- NOTE | 2019-09-04 20:00 | NUR ---
Patient discharged to home in stable condition. Written and verbal after care instructions given. Patient verbalizes understanding of instruction.
[2019-09-04 20:25] VITALS: BP 148/76
== END 2019-09-04 20:00 | disposition home or self-care (01) ==
LOC: ER 16:37
DX: R10.9 Unspecified abdominal pain (principal); G89.29 Other chronic pain; Z87.11 Personal history of peptic ulcer disease; Z98.890 Other specified postprocedural states
CPT/HCPCS: 36415; 80048; 80076; 85025; 96374; 96375; 99284; C9113; J3490

== ENCOUNTER 2019-12-17 12:54 | Emergency (ER) | payer OTHER ==
[~2019-12-17] VITALS: Ht 170.2 cm; Wt 67.1 kg
--- NOTE | 2019-12-17 13:08 | NUR ---
pt bibra from an urgent care c/o "abdominal pain" upon arrival pt already insisting on a pain shot. pt seen in ED multiple times for same complaints. pt is gowned and placed on monitor. vss. awaiting md beasley.
--- NOTE | 2019-12-17 13:10 | NUR ---
dr hui at bedside for eval.
--- NOTE | 2019-12-17 13:23 | NUR ---
iv line started blood drawn and sent to lab.
[2019-12-17 13:27] LABS: BASOPHILS # (AUTO) 0.1 /CMM (0.0-0.2); BASOPHILS % (AUTO) 0.8 % (0.0-2.0); EOSINOPHILS % (AUTO) 1.1 % (0.0-6.0); HEMATOCRIT 25 % (39-51); HEMOGLOBIN 7.4 g/dL (13.5-17.5); LYMPHOCYTES % (AUTO) 13.6 % (20.0-44.0); MEAN CORPUSCULAR HGB CONC 30 g/dl (31.0-36.0); MEAN CORPUSCULAR VOLUME 72 fL (80-96); MONOCYTES # (AUTO) 0.8 /CMM (0.1-1.30); MONOCYTES % (AUTO) 10.5 % (2.0-12.0); NEUTROPHILS # (AUTO) 5.5 /CMM (1.8-8.9); PLATELET COUNT (AUTO) 446 /CMM (150-450); RED BLOOD CELL COUNT(AUTO) 3.42 MIL/uL (4.5-6.0); WHITE BLOOD COUNT (AUTO) 7.5 K/uL (4.3-11.0)
[2019-12-17 13:30] LABS: APPEARANCE,URINE Clear (CLEAR); BILIRUBIN,URINE Negative (NEGATIVE); BLOOD, URINE Negative Ery/uL (NEGATIVE); COLOR,URINE Yellow (YELLOW); KETONES,URINE Negative (NEGATIVE); LEUKOCYTE ESTERASE ,URINE Negative (NEGATIVE); NITRITE, URINE Negative (NEGATIVE); PH,URINE 5.5 (5.0-8.0); PROTEIN,URINE Negative (NEGATIVE); UGLUCOSE Negative (NEGATIVE); UROBILINOGEN,URINE 0.2 EU/dL (0.2)
[2019-12-17] MEDS ORDERED: IV NS 0.9% 1,000 ML IV ONE (13:30)
[2019-12-17] MEDS ORDERED: MORPHINE SULFATE INJ 2 MG/ML DISP.SYRIN IV ONE (13:30)
[2019-12-17 13:34] LABS: CALCIUM, SERUM 8.9 mg/dL (8.5-10.1); CREATININE 1.2 mg/dL (0.6-1.3); POTASSIUM 3.8 mmol/L (3.5-5.1)
[2019-12-17 13:40] LABS: ALBUMIN 3.6 g/dL (3.4-5.0); BILIRUBIN,DIRECT 0.1 mg/dL (0.0-0.2); BILIRUBIN,TOTAL 0.2 mg/dL (0.2-1.0); TOTAL PROTEIN, SERUM 7.2 g/dL (6.4-8.2)
[2019-12-17] MEDS ORDERED: MORPHINE SULFATE INJ 4 MG/ML DISP.SYRIN ONE (13:42)
[2019-12-17] MEDS ORDERED: IOHEXOL-300 100 ML VIAL IV ONE (13:46)
[2019-12-17] MEDS ORDERED: IV NS 0.9% 250 ML IV ONE (13:46)
[2019-12-17] MEDS ORDERED: CT SWABBABLE VALVE TRANS SET 1 EA INFUS.SET MC ONE (13:47)
--- NOTE | 2019-12-17 14:04 | NUR ---
pt to radiology for abdominal ct scan via [facility].
--- NOTE | 2019-12-17 17:18 | NUR ---
AMBULANCE AUTHORIZATION FOR TRANSPORT [id number].
--- NOTE | 2019-12-17 17:25 | NUR ---
CALLED [facility] FOR [facility] TRANSPORT TO [facility]. ETA 1 HOUR.
[2019-12-17 17:30] VITALS: BP 125/60
--- NOTE | 2019-12-17 18:04 | NUR ---
patient going to room 506 [phone] francesco FOX
--- NOTE | 2019-12-17 18:17 | NUR ---
report given to amy [facility] awaiting transport.
--- NOTE | 2019-12-17 18:33 | NUR ---
transported to [facility] in stable condition.
== END 2019-12-17 18:35 | disposition short-term general hospital (02) ==
LOC: ER 12:58
DX: R10.84 Generalized abdominal pain (principal); D64.9 Anemia, unspecified; K92.1 Melena; Z98.890 Other specified postprocedural states
CPT/HCPCS: 36415; 74177; 80048; 80076; 81001; 83690; 85025; 96374; 99285; J2270; J7030; J7050; Q9967; 81000-TC